=== PATIENT | male | born 1950 | race Caucasian/White ===

== ENCOUNTER 2023-03-31 08:59 | Outpatient (OUT) | payer MEDICARE, SELFPAY ==
--- NOTE | 2023-03-31 09:12 | MR_ITS ---
The [address] [address] Patient Name: GREGORY HENDERSON MRN: [id number] date: 1950 Sex: M Assigned Patient Location: MRI Current Patient Location: MRI Accession/Order Number: [id number] Exam Date: 03/31/2023 09:45 Report Date: 03/31/2023 13:16 At the request of: BRENDA WOOD Procedure: MR head/brain wo/w con EXAM: MR head/brain wo/w con HISTORY: Mild Cognitive Impairment G31.84 COMPARISON: None. TECHNIQUE: Multiplanar multisequence MR imaging of the brain was performed with and without intravenous contrast. FINDINGS: Calvarium/skull base: No focal marrow replacing lesion suggestive of neoplasm. Orbits: Grossly unremarkable. Paranasal sinuses: Imaged portions clear Brain: No restricted diffusion. No significant white matter disease. Mild parenchymal volume loss. No abnormal intracranial enhancement. No mass effect, hemorrhage, or hydrocephalus. Grossly normal flow-related signal in the major intracranial arteries and dural sinuses. MR/MR head/brain wo/w con IMPRESSION: 1. No acute intracranial process. 2. Mild diffuse parenchymal volume loss. Electronically authenticated by: JACOBO DE LA ROSA Date: 03/31/2023 13:16
[2023-03-31 09:29] LABS: Estimated GFR (African America >60 (>=60); Estimated GFR (Non-African Ame 54 (>=60)
== END 2023-03-31 09:00 | disposition home or self-care (01) ==
LOC: MRI 08:59
PROVIDERS: Visit Provider Psychiatry & Neurology Neurology
DX: G31.84 Mild cognitive impairment of uncertain or unknown etiology (principal)
CPT/HCPCS: 36415; 70553; 82565; 84520; A9575

== ENCOUNTER 2023-04-14 10:26 | Outpatient (OUT) | payer MEDICARE, SELFPAY ==
--- OUTSIDE RECORDS SUMMARY | 2023-04-14 10:34 | XMS_ITS | CCD ---
Author Name Unknown Address [address] [place] [address] Organization [facility] Care Team Providers Care Steward/Stewardess Wine Name Role Phone KayleyMalia mercado Unavailable Pattie Janna Unavailable Allergies Allergy Classification Reported Allergen(s) Allergy Type Date of Onset Reaction(s) Facility (3 sources) Substance with sulfonamide structure and antibacterial mechanism of action (substance) Drug allergy rash [facility] Other Medications Current Medications Medication Drug Class(es) Dates Sig (Normalized) Sig (Original) Aspir-81 (3 sources) Aspir-81 Active atorvastatin 80 mg oral tablet (3 sources) HMG-CoA Reductase Inhibitor take 1 tablet by mouth every twenty-four hours Atorvastatin Calcium 80 MG 1 tablet Orally Once a day Active azithromycin 250 mg oral tablet (1 source) Macrolide Antimicrobial Start: 06-07-2022 Azithromycin 250 MG 2 tablet on the first day, then 1 tablet daily for 4 days Orally Once a day for 5 day(s) Jun, Active benzonatate 200 mg oral capsule (3 sources) Non-narcotic Antitussive Start: 09-18-2022 take 1 capsule by mouth three times daily as needed for cough Benzonatate 200 MG 1 capsule Orally Three times a day prn cough for 10 days Sep, Active Start: 06-20-2022 take 1 capsule by [facility] every eight hours Benzonatate 200 MG 1 capsule Orally Three times a day prn cough Jun, Active Start: 06-07-2022 take 1 capsule by [facility] every eight hours Tessalon Perles 100 MG 1 capsule as needed Orally Three times a day for 10 day(s) Jun, Active clopidogrel 75 mg oral tablet (1 source) P2Y12 Platelet Inhibitor take 1 tablet by mouth every twenty-four hours Plavix 75 MG 1 tablet Orally Once a day Active doxycycline hyclate 100 mg oral capsule (1 source) Tetracycline-cl ass Drug Start : 06-20 take 1 capsule by mouth every twelve hours Doxycycline Hyclate 100 MG 1 capsule Orally Twice a day for 10 Jun, Active hydroCHLOROthiazide 25 mg oral tablet (3 sources) Thiazide Diuretic take 1 tablet by mouth every twenty-four hours hydroCHLOROthiazide 25 MG 1 tablet in the morning Orally Once a day Active metoprolol tartrate 50 mg oral tablet (3 sources) beta-Adrenergic Collette take 1 tablet by mouth every twelve hours Metoprolol Tartrate 50 MG 1 tablet with food Orally Twice a day Active NyQuil (1 source) Start : 06-07 NyQuil Jun, Active predniSONE 20 mg oral tablet (2 sources) Start : 06-07 take 1 tablet by mouth every twelve hours predniSONE 20 MG 1 tablet Orally 2 times a day for 5 day(s) Jun, Active Completed/Discontinued Medications Medication Drug Class(es) Dates Sig (Normalized) Sig (Original) albuterol 0.83 mg/ml inhalation solution (3 sources) beta2-Adrenergic Agonist Start: 06-20-2022 Albuterol Sulfate (2.5 MG/3ML) 0.083% 3 ml as needed Inhalation 4 times a day prn Jun, Not-Taking Start: 06-07-2022 take 2 puff(s) by in halation four times daily as needed Albuterol Sulfate HFA 108 (90 Base) MCG/ACT 2 puffs Inhalation 4 times a day prn Jun, Active Nebulizer - (2 sources) Start: 06-20-2022 Nebulizer - as directed Jun, Not-Taking Start: 06-20-2022 Nebulizer - as directed Jun, Active triamcinolone acetonide 40 mg/ml injectable suspension (2 sources) Corticosteroid Start: 06-20-2022 Kenalog-40 Jun, 40 mg Problems Active Problems Problem Classification Problem Date Documented Da te Episodic/Chronic Chronic obstructive pulmonary disease and bronchiectasis (2 sources) Bronchitis, not specified as acute or chronic Episodic Other upper respiratory infections (2 sources) Acute pharyngitis, unspecified; Translations: [Acute upper respiratory infection, unspecified] Episodic Past or Other Problems Problem Classification Problem Date Documented Da te Episodic/Chronic Unclassified (1 source) Acute cough R05.1 Viral infection (1 source) COVID-19 Results Test Name Value Interpretation Reference Range Facil ity COVID Quick Testingon 2022 Result Negative [facility] [employer] Other Quick Strepon 09-18-2022 S. pyogenes Org specific cx Ql (Throat) Negative [facility] [email or web address] Other Quick Strep [facility] [employer] Other COVID + FLU Quick Testingon 06-07-2022 SARS-CoV-2 (COVID-19) RNA LEANN+probe Ql (Unsp spec) Positive [facility] [email or web address] Other COVID + FLU Quick Testing Negative [facility] [email or web address] Other Vital Signs Date Time Vital Sign Value Performing Clinician Facility 09-18-2022 09:00-0400 Body height 162.56 cm Janna Blankenship Other [facility] Other 09-18-2022 09:00-0400 Body mass index (BMI) [Ratio] 37.07 kg/m2 Janna Blankenship Other [facility] Other 09-18-2022 09:00-0400 Body temperature 98.4 [degF] Janna Blankenship Other [facility] Other 09-18-2022 09:00-0400 Body weight 97.98 kg Janna Blankenship Other [facility] Other 09-18-2022 09:00-0400 Diastolic blood pressure 70 mm[Hg] Janna Blankenship Other [facility] Other 09-18-2022 09:00-0400 Respiratory rate 18 /min Janna Blankenship Other [facility] Other 09-18-2022 09:00-0400 SaO2% (BldA) [Mass fraction] 97 % Janna Blankenship Other [facility] Other 09-18-2022 09:00-0400 Systolic blood pressure 118 mm[Hg] Janna Blankenship Other [facility] Other 06-20-2022 10:10-0400 Body height 162.56 cm Malia Zaldivar Other [facility] Other 06-20-2022 10:10-0400 Body temperature 97.3 [degF] Malia Hensonmond Other [facility] Other 06-20-2022 10:10-0400 Respiratory rate 18 /min Malia Hensonmond Other [facility] Other 06-20-2022 10:10-0400 SaO2% (BldA) [Mass fraction] 97 % Malia Hensonmond Other [facility] Other 06-07-2022 09:00-0500 Body height 162.56 cm Malia Kayley Other [facility] Other 06-07-2022 09:00-0500 Body mass index (BMI) [Ratio] 38.45 kg/m2 Malia Kayley Other [facility] Other 06-07-2022 09:00-0500 Body temperature 102 [degF] Malia Kayley Other [facility] Other 06-07-2022 09:00-0500 Body weight 101.61 kg Malia Kayley Other [facility] Other 06-07-2022 09:00-0500 SaO2% (BldA) [Mass fraction] 96 % Malia Zaldivar Other [facility] Other Encounters Encounter Date Encounter Type Care Provider Facility Start: 09-18-2022 End: 09-18-2022 ambulatory Janna Blankenship Other [facility] Other Start: 09-18-2022 Office outpatient vi sit 15 minutes Janna Blankenship [facility] Start: 06-20-2022 End: 06-20-2022 ambulatory Malia Zaldivar Other [facility] Other Start: 06-20-2022 Office outpatient vi sit 15 minutes Maliashannan Zaldivar [facility] Start: 06-07-2022 End: 06-07-2022 ambulatory Malia Zaldivar Other [facility] Other Start: 06-07-2022 Office outpatient ne w 20 minutes Malia Kayley [facility] Payers Date Payer Category Payer Policy ID Medicare [id number] Social History Date Type Detail Facility Sex Assigned At [facility] Other Evaluation note 09-18-2022 Note Date & Type Note Facility 09-18-2022 Evaluation note Encounter Date Diagnosis Assessment Notes Sep, Sore throat (ICD-10 - J02.9) Sep, Viral URI with cough (ICD-10 - J06.9) Rapid strep and COVID test negative. Lungs clear, vitals remain stable. Discussed with patient exam and history is consistent with viral upper respiratory infection. Discussed viral nature of illness and typical duration of 7 to 14 days. Advised antibiotics unfortunately do not treat viral illnesses. May use symptomatic treatment such as plain mucinex, claritin, tessalon rx. May use Tylenol for any pain/fever. Follow-up with PCP if not improving over the next 7 days, sooner if significantly worsening symptoms. [facility] Other Evaluation note 06-20-2022 Note Date & Type Note Facility 06-20-2022 Evaluation note Encounter Date Diagnosis Assessment Notes Jun, Bronchitis (ICD-10 - J40) Acute bronchitis material was printed Drink plenty fluids, get plenty of rest. Continue home medications as prescribed. Take the doxycycline and prednisone as prescribed until gone. Use the albuterol nebulizer or your albuterol inhaler as prescribed as needed for cough or shortness of breath. Take the Tessalon Perles as needed for cough. Follow-up with your family physician or return to the clinic if no improvement in 5 to 7 days. Go to the ER for worsening symptoms or concerns [facility] Other Evaluation note 06-07-2022 Note Date & Type Note Facility 06-07-2022 Evaluation note Encounter Date Diagnosis Assessment Notes Jun, COVID-19 (ICD-10 - U07.1) Discharge Instructions for COVID-19 (Suspected or Confirmed ) material was printed Drink plenty fluids get plenty of rest. Take Tylenol or Motrin as needed for aches pains or fevers. Continue home medications as prescribed. You must quarantine for 5 days after the onset of your symptoms of COVID. Follow-up with your family physician if no improvement in 2 to 3 days. Jun, Bronchitis (ICD-10 - J40) Jun, Acute cough (ICD-10 - R05.1) [facility] Other History general Narrative - Reported 06-01-2022 Note Date & Type Note Facility 06-01-2022 History general N arrative - Reported Type Medical History hypertension Medical History high cholesterol Medical History COVID 06/2022 Surgical History right and left knee replacement Surgical History 2 stents Hospitalization History see surgical hx [facility] Other History general Narrative - Reported Note Date & Type Note Facility History general Narrative - Reported Type Medical History hypertension Medical History high cholesterol Surgical History right and left knee replacement Surgical History 2 stents Hospitalization History see surgical hx [facility] Other Additional Source Comments REASON FOR VISIT (unrecogniz ed section and content) cough, congestionCOUGH, JAVI ESTIONcold can't shake,sore throat FOR RECORDS PERTAINING TO PATIENTS WHO ARE OR HAVE BEEN ENROLLED IN A CHEMICAL DEPENDENCY/SUBSTANCEABUSE PROGRAM, SOME INFORMATION MAY BE OMITTED. This clinical summary was aggregated from multiple sources. Caution should be exercised in using it in the provision of clinical care. This summary normalizes information from multiple sources, and as a consequence, information in this document may materially change the coding, format and clinical context of patient data. In addition, data may be omitted in some cases. CLINICAL DECISIONS SHOULD BE BASED ON THE PRIMARY CLINICAL RECORDS. [facility]. provides no warranty or guarantee of the accuracy or completeness of information in this document.
== END 2023-04-14 10:27 | disposition home or self-care (01) ==
DX: G31.84 Mild cognitive impairment of uncertain or unknown etiology (principal)
CPT/HCPCS: 36415; 82607

== ENCOUNTER 2024-10-24 08:05 | Outpatient (OUT) | payer MEDICARE, SELFPAY ==
--- OUTSIDE RECORDS SUMMARY | 2024-10-24 08:17 | XMS_ITS | CCD ---
Author Organization [facility] Care Team Providers Care Sales Ledger Administrator Name Role Phone Kayley Malia Unavailable Pattie Janna Unavailable Baylee VILLEGAS, Muriel Primary Care Provider [phone] Cm Cho DO Unavailable MICHELLE DILLARD Attending Unavailable MICHELLE DILLARD Attending Unavailable FAHAD CHIN Attending Unavailable FAHAD CHIN Attending Unavailable BERNY LARSON Attending Unavailable Allergies Allergy Classification Reported Allergen(s) Allergy Type Date of Onset Reaction(s) Facility (6 sources) Substance with sulfonamide structure and antibacterial mechanism of action (substance) Drug allergy 10-18-2023 [facility] (1 source) Sulfacetamide; Translations: [SULFACETAMIDE] Drug Allergy 10-19-2022 [facility] Medications Current Medications Medication Drug Class(es) Dates Sig (Normalized) Sig (Original) Aspir-81 (3 sources) Aspir-81 Active aspirin 81 mg delayed release oral tablet (3 sources) Platelet Aggregation Inhibitor, Nonsteroidal Anti-inflammatory Drug take 1 tablet by mouth once daily aspirin 81 MG EC tablet Take 81 mg by mouth Daily Active atorvastatin 80 mg oral tablet (6 sources) HMG-CoA Reductase Inhibitor take 1 tablet by mouth once daily atorvastatin (Lipitor) 80 MG tablet Take 80 mg by mouth Daily Active azithromycin 250 mg oral tablet (1 [...] Active Start: 06-20-2022 take 1 capsule by [facility] every eight hours Benzonatate 200 MG 1 capsule Orally Three times a day prn cough Jun, Active Start: 06-07-2022 take 1 capsule by [facility] every eight hours Tessalon Perles 100 MG 1 capsule as needed Orally Three times a day for 10 day(s) Jun, Active clopidogrel 75 mg oral tablet (4 sources) P2Y12 Platelet Inhibitor clopidogrel (Plavix) 75 MG tablet Take by mouth Daily Active doxycycline hyclate 100 mg oral capsule (1 source) Tetracycline-cl ass Drug Start: 2022 take 1 capsule by mouth every twelve hours Doxycycline Hyclate 100 MG 1 capsule Orally Twice a day for 10 Jun, Active hydroCHLOROthiazide 25 mg oral tablet (6 sources) Thiazide Diuretic take 1 tablet by mouth once daily hydroCHLOROthiazide (HYDRODiuril) 25 MG tablet Take 25 mg by mouth Daily Active metoprolol tartrate 50 mg oral tablet (6 sources) beta-Adrenergic Collette take 1 tablet by mouth in the morning metoprolol tartrate (Lopressor) 50 MG tablet Take 50 mg by mouth in the morning and 50 mg before bedtime. Active Multiple Vitamins-Minerals (Mens 50+ Multivitamin) tablet (3 sources) take 1 tablet by mouth once daily Multiple Vitamins-Minerals (Mens 50+ Multivitamin) tablet Take 1 tablet by mouth Daily Active NyQuil (1 source) Start: 2022 NyQuil Jun, Active predniSONE 20 mg oral tablet (2 sources) Start: 2022 take 1 tablet by mouth every twelve [...] not specified as acute or chronic Episodic Coronary atherosclerosis and other heart disease (4 sources) Silent myocardial ischemia; Translations: [Atherosclerotic heart disease of ute coronary artery without angina pectoris] Onset: 10-19-2022 Chronic Diabetes mellitus with complications (2 sources) Hyperglycemia due to type 2 diabetes mellitus; Translations: [Type 2 diabetes mellitus with hyperglycemia] 05-02-2024 Chronic Disorders of lipid metabolism (4 sources) Mixed hyperlipidemia; Translations: [Hyperlipidemia, unspecified] Onset: 04-26-2024 Chronic Essential hypertension (2 sources) Essential (primary) hypertension; Translations: [Essential (primary) hypertension] Onset: 10-19-2022 Chronic Hypertension with complications and secondary hypertension (2 sources) Hypertensive heart disease without heart failure; Translations: [Hypertensive heart disease without heart failure] Onset: 10-10-2024 Chronic Other hereditary and degenerative nervous system conditions (5 sources) Impaired cognition; Translations: [Mild cognitive impairment, so stated] Onset: 10-18-2023 10-18-2023 Chronic Other upper respiratory infections (2 sources) Acute pharyngitis, unspecified; Translations: [Acute upper respiratory infection, unspecified] Episodic Residual codes; unclassified (2 sources) Obstructive sleep apnea syndrome; Translations: [Obstructive sleep apnea (adult) (pediatric)] 05-02-2024 Chronic Past or Other Problems Problem Classification Problem Date Documented Da te Episodic/Chronic Residual codes; unclassified (3 sources) Amnesia; Translations: [Other amnesia] Onset: 10-18-2023 10-18-2023 Episodic Unclassified (1 source) Acute cough R05.1 Viral infection (1 source) COVID-19 Results Test Name Value Interpretation Reference Range Facil ity Office Visiton 10-10-2024 Follow-up visit [id number] BrynnGregory Francis 1950 M Date Provider Department Center 10/10/2024 271-BERNY LARSON [facility] Family History Problem Relation Age of Onset Pancreatitis Mother Supraventricular tachycardia Mother Atrial fibrillation Mother Family Status - Relation Status Age at Mother Father Level of Service:29083 SD OFFICE/OUTPATIENT ESTABLISHED MOD MDM 30 MIN Normal [facility] Office Visiton 04-26-2024 Follow-up visit [id number] BrynnGregory Francis 1950 M Date Provider Department Center 04/26/2024 [id number] CHIN Family History Problem Relation Age of Onset Pancreatitis Mother Supraventricular tachycardia Mother Atrial fibrillation Mother Family Status - Relation Status Age at Mother Level of Service:75412 SD OFFICE/OUTPATIENT ESTABLISHED LOW MDM 20 MIN Normal [facility] Office Visiton 10-30-2023 Follow-up visit [id number] BrynnGregory Francis 1950 M Date Provider Department [facility] Family History Problem Relation Age of Onset Pancreatitis Mother Supraventricular tachycardia Mother Atrial fibrillation Mother Family Status - Relation Status Age at Mother Level of Service:97513 SD OFFICE/OUTPATIENT ESTABLISHED MOD MDM 30 MIN Normal [facility] COVID Quick Testingon 09-18 Result Negative [employer] Other Quick Strepon 09-18-2022 S. pyogenes Org specific cx Ql (Throat) Negative [employer] Other Quick Strep [employer] Other COVID + FLU Quick Testingon 06-07-2022 SARS-CoV-2 (COVID-19) RNA LEANN+probe Ql (Unsp spec) Positive [employer] Other COVID + FLU Quick Testing Negative [employer] Other Vital Signs Date Time Vital Sign Value Performing Clinician Facility 05-02-2024 15:25-0500 Body mass index (BMI) [Ratio] 39.48 kg/m2 Michelle Dillard MOLECULAR TECHNOLOGIST Work Phone: [facility] [employer] 05-02-2024 15:25-0500 Body weight 104.33 kg Michelle Dillard MOLECULAR TECHNOLOGIST Work Phone: [facility] [employer] 05-02-2024 15:25-0500 Diastolic blood pressure 72 mm[Hg] Michelle Dillard MOLECULAR TECHNOLOGIST Work Phone: [facility] [employer] 05-02-2024 15:25-0500 Heart rate 61 /min Michelle Dillard MOLECULAR TECHNOLOGIST Work Phone: [facility] [employer] 05-02-2024 15:25-0500 SaO2% (BldA) [Mass fraction] 98 % Michelle Dillard MOLECULAR TECHNOLOGIST Work Phone: [facility] [employer] 05-02-2024 15:25-0500 Systolic blood pressure 120 mm[Hg] Michelle Dillard MOLECULAR TECHNOLOGIST Work Phone: [facility] [employer] 09-18-2022 09:00-0400 Body height 162.56 cm Janna Blankenship Other [employer] Other 09-18-2022 09:00-0400 Body mass index (BMI) [Ratio] 37.07 kg/m2 Janna Blankenship Other [employer] Other 09-18-2022 09:00-0400 Body temperature 98.4 [degF] Janna Blankenship Other [employer] Other 09-18-2022 09:00-0400 Body weight 97.98 kg Janna Blankenship Other [employer] Other 09-18-2022 09:00-0400 Diastolic blood pressure 70 mm[Hg] Janna Blankenship Other [employer] Other 09-18-2022 09:00-0400 Respiratory rate 18 /min Janna Blankenship Other [employer] Other 09-18-2022 09:00-0400 SaO2% (BldA) [Mass fraction] 97 % Janna Blankenship Other [employer] Other 09-18-2022 09:00-0400 Systolic blood pressure 118 mm[Hg] Janna Blankenship Other [employer] Other 06-20-2022 10:10-0400 Body height 162.56 cm Malia Kayley Other [employer] Other 06-20-2022 10:10-0400 Body temperature 97.3 [degF] Malia Kayley Other [employer] Other 06-20-2022 10:10-0400 Respiratory rate 18 /min Malia Kayley Other [employer] Other 06-20-2022 10:10-0400 SaO2% (BldA) [Mass fraction] 97 % Malia Kayley Other [employer] Other 06-07-2022 09:00-0500 Body height 162.56 cm Malia Kayley Other [employer] Other 06-07-2022 09:00-0500 Body mass index (BMI) [Ratio] 38.45 kg/m2 Malia Kayley Other [employer] Other 06-07-2022 09:00-0500 Body temperature 102 [degF] Malia Kayley Other [employer] Other 06-07-2022 09:00-0500 Body weight 101.61 kg Malia Kayley Other [employer] Other 06-07-2022 09:00-0500 SaO2% (BldA) [Mass fraction] 96 % Malia Zaldivar Other [employer] Other Encounters Encounter Date Encounter Type Care Provider Facility Start: 10-10-2024 End: 10-10-2024 ambulatory [facility] Start: 05-02-2024 End: 05-02-2024 Office outpatient visit 15 minutes Michelle Dillard MOLECULAR TECHNOLOGIST Work Phone: [facility] Comment on above: Mild cognitive impai rment (Primary Dx); ALEXYS on CPAP; Type 2 diabetes mellitus with hyperglycemia, without long-term current use of insulin ([facility]) Start: 05-02-2024 End: 05-02-2024 ambulatory MICHELLE NISHANT Not Available Start: 05-02-2024 End: 05-02-2024 Bamboo flowsheet Michelle Dillard MOLECULAR TECHNOLOGIST Work Phone: [facility] Start: 05-02-2024 End: 05-02-2024 Bamboo flowsheet Michelle Dillard MOLECULAR TECHNOLOGIST Work Phone: [facility] Start: 04-26-2024 End: 04-26-2024 ambulatory [facility] Start: 10-30-2023 End: 10-30-2023 ambulatory [facility] Start: 10-23-2023 End: 10-23-2023 ambulatory MICHELLE DILLARD Not Available Start: 09-18-2022 End: 09-18-2022 ambulatory Janna Blankenship Other [employer] Other Start: 09-18-2022 Office outpatient visit 15 minutes Janna Blankenship [facility] Start: 06-20-2022 End: 06-20-2022 ambulatory Malia Zaldivar Other [employer] Other Start: 06-20-2022 Office outpatient visit 15 minutes Malia Zaldivar [facility] Start: 06-07-2022 End: 06-07-2022 ambulatory Malia Kayley Other [employer] Other Start: 06-07-2022 Office outpatient ne w 20 minutes Malia Zaldivar [facility] Plan of Treatment Date Care Activity Detail Author Start: 11-12-2024 End: 11-12-2024 Patient encounter procedure 11/12/2024 1:00 PM EDT Office Visit [facility] [address] [place] [address] Michelle Dillard NP [address] [place] [address] [facility] Start: 05-02-2024 End: 05-02-2024 Patient encounter procedure 05/02/2024 4:00 PM EST Office Visit [facility] [address] [place] [address] Michelle Dillard NP [address] [place] [address] Arrived [facility] Comment on above: Arrived Start: 2013 Pneumococcal Vaccine : 65+ Years (1 of 1 - PCV) Pneumococcal Vaccine: 65+ Years (1 of 1 - PCV) [facility] Start: 1950 Screening for malign ant neoplasm of colon [facility] Payers Date Payer Category Payer Medicare (Managed Care) [employer] [id number] 2022 Medicare [id number] 1950 Unknown [id number] 1950 Unknown [id number] Social History Date Type Detail Facility Start: 10-23-2023 Sex Assigned At N [employer] Other Start: 10-18-2023 Tobacco smoking stat [facility] Never smoked tobacco [facility] Start: 10-18-2023 Tobacco use and exposure Smokeless tobacco non-user [facility] Start: 10-23-2023 End: 05-02-2024 Alcoholic beverage intake Lifetime non-drinker (finding) [facility] Start: 10-23-2023 History of Social function [facility] Start: 1950 Sex assigned at Not on file N [facility] Progress note 10-10-2024 Note Date & Type Note Facility 10-10-2024 Note [facility] Cardiology Clinic Note Chief Complaint: Patient is here today for a 6 month follow up. Patient states he has been feeling good. Patient states he has been doing house project and as learned he has to slow down a bit, but feels really good. HPI: Gregory Swain is a 74 y.o. 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 This was abnormal. This led to a stress test that was abnormal. Cardiac catheterization revealed significant disease in the left anterior descending and PDA. He has had no significant symptoms since. He was recently diagnosed as diabetic and is trying to control his sugars with diet. Review of Systems Constitutional: Negative. Past Medical History He has a past medical history of BPH (benign prostatic hyperplasia), CAD (coronary artery disease), Elevated glucose, Hypertension, and Low serum HDL. Surgical History He has a past surgical history that includes Total knee arthroplasty (Bilateral); Foot surgery; Cardiac catheterization; and Coronary stent placement. Social History He reports that he has never smoked. He has never used smokeless tobacco. He reports that he does not currently use alcohol. He reports that he does not use drugs. Family History Family History[1] Allergies Sulfacetamide Medications Current Medications[2] Last Recorded Vitals BP 123/73 (BP Location: Left arm, Patient Position: Sitting) Pulse 60 Ht 1.626 m (5' 4 ) Wt 104 kg (229 lb) SpO2 95% BMI 39.31 kg/m??? Physical Examination: GENERAL: alert and oriented x3, well developed, in no acute distress. HEAD: atraumatic, normocephalic. EYES: CORINNA, EOMI. NECK: trachea midline, no JVD present, no carotid bruits present. CARDIAC: S1, S2 present. RRR. No murmur, rubs, or gallops. RESPIRATORY: CTAB, no increased effort of breathing, no rales, rhonchi, or wheezing. ABDOMEN: soft, nontender, nondistended. EXTREMITIES: no lower extremity edema, peripheral pulses are 2+ bilaterally. No rash/skin discoloration present. NEURO: strength/sensation equal and symmetric in bilateral upper and lower extremities. PSYCH: appropriate mood, affect, and judgement. Investigations: Lipid profile 05/07/2024 Total cholesterol 128, triglycerides 113, HDL is low at 36, LDL is 69 Assessment: Coronary artery disease, history of PCI of the LAD and left PDA Essential hypertension Dyslipidemia - low HDL Type II DM - diet controlled Plan: Continue optimal medical therapy for coronary artery disease including dual antiplatelet therapy, high intensity statin therapy, and a beta-collette Given recent diagnosis of diabetes mellitus, I recommended initiation of lisinopril; will start 5 mg a day and check a basic metabolic panel in a week. May consider addition of an SGLT2 inhibitor and/or a GLP-1 receptor agonist; will defer to his family physician. The patient is on hydrochlorothiazide and his blood pressure is well-controlled Given absence of symptoms prior to his PCI, as well as his diabetes, we will order a Lexiscan stress test to rule out occult ischemia May consider an echocardiogram depending on the results of his stress test Return to clinic in 6 months or sooner should problems arise Berny Larson MD, MPH, FACC, [facility], [facility] Interventional Cardiology Pager Email: [email or web address] Berny Larson MD, MPH, FACC, [facility], [facility] Interventional Cardiology Pager Email: [email or web address] [1] Family History Problem Relation Name Age of Onset Pancreatitis Mother Supraventricular tachycardia Mother Atrial fibrillation Mother [2] Current Outpatient Medications: aspirin 81 mg EC tablet, Take 1 tablet by mouth in the morning., Disp: , Rfl: atorvastatin (Lipitor) 80 mg tablet, Take 1 tablet by mouth at bedtime., Disp: , Rfl: clopidogrel (Plavix) 75 mg tablet, Take 1 tablet by mouth 1 (one) time each day., Disp: , Rfl: hydroCHLOROthiazide (HYDRODiuril) 25 mg tablet, Take 1 tablet by mouth 1 (one) time each day., Disp: , Rfl: metoprolol tartrate (Lopressor) 50 mg tablet, Take 1 tablet by mouth in the morning and at bedtime., Disp: , Rfl: [facility] History of Present illness Narrative 05-02-2024 Michelle Dillard NP - 05/02/2024 4:00 PM EST Note Date & Type Note Facility 05-02-2024 History of Presen t illness Narrative Images from the original note were not included. Chief Complaint Patient presents with Memory Loss Subjective Gregory Swain is a 73 y.o. male. History of Present Illness The patient presents today for a follow-up appointment for memory. He is accompanied by his , Fe Aguilar. He was most recently evaluated in our office on 10/23/2023. He has felt well since that time. The patient believes his cognitive function and memory have improved since the prior appointment. He lives at home with his . He remains independent with all ADLs and IADLs. He manages his medications and finances independently. He denies missing doses of medications or taking more than prescribed. He drives without difficulty or safety concerns. He has not gotten lost. 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 His appetite and mood are good. He denies feelings of depression or anxiety. He denies any changes in his sleep. He admits he has not been utilizing his CPAP every night due to his mask not fitting properly and previous electrical issues. The electrical issues are now resolved. 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 He denies agitation, irritability, hallucinations, wandering, or falls. He denies any new concerns. The patient denies family history of dementia. Review of Systems Constitutional: Negative for appetite change, chills, fatigue, fever and unexpected weight change. HENT: Negative for trouble swallowing and voice change. Eyes: Negative for visual change, double vision or loss of vision Respiratory: Negative for cough, shortness of breath and wheezing. Cardiovascular: Negative for chest pain and palpitations. Gastrointestinal: Negative for abdominal pain, blood in stool, nausea and vomiting. Musculoskeletal: Negative for arthralgias, gait problem and myalgias. Neurological: Negative for dizziness, tremors, seizures, syncope, facial asymmetry, speech difficulty, weakness, light-headedness, numbness and headaches. Positive for cognitive impairment Psychiatric/Behavioral: Negative for hallucinations and suicidal ideas. The patient is not nervous/anxious. Home Medication List aspirin 81 MG EC tablet atorvastatin 80 MG tablet; Commonly known as: Lipitor clopidogrel 75 MG tablet; Commonly known as: Plavix hydroCHLOROthiazide 25 MG tablet; Commonly known as: HYDRODiuril Mens 50+ Multivitamin tablet metoprolol tartrate 50 MG tablet; Commonly known as: Lopressor Past Medical History: Diagnosis Date DM type 2 (diabetes mellitus, type 2) (CMS/HCC) Hypertension ([facility]) ALEXYS (obstructive sleep apnea) Past Surgical History: Procedure Laterality Date KNEE ARTHROSCOPY W/ ARTHROTOMY TONSILLECTOMY TOTAL KNEE ARTHROPLASTY Family History Problem Relation Name Age of Onset Hypertension Mother Stroke Mother Cancer Father Social History Tobacco Use Smoking status: Never Smokeless tobacco: Never Substance Use Topics Alcohol use: Never Allergies: Sulfa antibiotics Vitals: 05/02/24 1525 BP: 120/72 Pulse: 61 SpO2: 98% Body mass index is 39.48 kg/m . weight: 230 lb Neurologic exam: Mental status and general appearance: Awake and alert with unlabored respirations. Oriented to person, place, and time. Recent and remote memory are intact. Speech is clear and fluent without aphasia. Speech is non-dysarthric. Attention and concentration are normal. Fund of knowledge is appropriate for level of education. Pleasant. Cranial nerves: CN II: Visual acuity is normal. Visual rueda full to confrontation. CN III, IV, : Pupils are equal, round, and reactive to light. Extraocular movements intact. No ptosis present. CN V: Facial sensation is normal. CN VII: Full and symmetric facial movement. CN VIII: Hearing is normal to finger rub bilaterally. CN IX and X: Palate elevates symmetrically. CN XI: Shoulder shrug is normal bilaterally. CN XII: Tongue is midline without atrophy or fasciculation. Motor: RUE strength deltoid , biceps , triceps , wrist extensors , wrist flexor , and coil cutter strength 5/5. LUE strength deltoid , biceps , triceps , wrist extensors , wrist flexor , and coil cutter strength 5/5. RLE strength iliopsoas, quadriceps, tibialis anterior, and plantar flexion strength 5/5. LLE strength iliopsoas, quadriceps, tibialis anterior, and plantar flexion strength 5/5. Tone and bulk are normal. Sensory: Sensation is intact to light touch throughout all four extremities. Sensation is intact to temperature in all extremities. Reflexes: RUE biceps reflex 2+ , brachioradialis reflex 2+. LUE biceps reflex 2+ , brachioradialis reflex 2+. RLE knee reflex 0. LLE knee reflex 0. Coordination: [id number] testing normal. Rapid alternating movements are normal. Gait: Normal. Review and summary of old records: MOCA score at [facility] on 05/02/24: with 4/5 recall. Vitamin B12 level on 04/14/23: 297. Labs on 03/11/23: GFR 54 (low). TSH on 09/20/22: 2.08. MRI of the brain w and w/o contrast at [facility] on 03/31/23: No acute intracranial process. Mild diffuse parenchymal volume loss. Garden cognitive assessment (MOCA) score at [facility] 03/08/23: . Assessment/Plan Diagnoses and all orders for this visit: Mild cognitive impairment (MCI) It is my impression that the patient has MCI versus normal cognition with mild forgetfulness. The patient initially presented reporting cognitive impairment with onset around early 2022. However, he believes his memory has actually improved over the past year, and his MOCA scores are consistent with this. This would argue against a neurodegenerative process and would suggest maybe previously high stress levels were contributory. TSH and vitamin B12 level were within normal limits. MRI of the brain on 03/31/2023 was generally unremarkable aside from mild diffuse parenchymal volume loss. MOCA score today is 28/30 (improved from prior score of 26/30 on 03/08/23). The patient remains independent with all ADLs and IADLs and denies any functional disability in his daily life. There are no focal neurological deficits on exam. PLAN: - Monitor clinically - We have discussed sleep hygiene, healthy diet, regular physical activity (as tolerated), and methods to help improve recall of information - I recommended the patient follow up closely with his primary care provider for management of blood pressure, cholesterol levels, and blood glucose. He states his most recent hemoglobin A1c was 5.7% - Could consider neuropsychological evaluation if the patient reports cognitive decline in the future or concerns arise Obstructive sleep apnea (ALEXYS) on CPAP History of ALEXYS reported by patient. PLAN: - I encouraged compliance with CPAP use while asleep - I encouraged the patient to follow up closely with outside provider for management of his ALEXYS. We discussed possible adverse health effects associated with untreated ALEXYS Type 2 diabetes mellitus with hyperglycemia, without long-term current use of insulin ([facility]) PLAN: - Follow up closely with primary care provider for adequate blood glucose management Diagnosis and treatment options discussed in detail. All questions answered. The patient verbalizes understanding and is agreeable to the plan. Discussion in layman's terms. Follow up in the office within 6 months; sooner if needed for new or worsening symptoms. Michelle Dillard NP [facility] Advanced Neurology documented in this encounter [facility] Progress note 04-26-2024 Note Date & Type Note Facility 04-26-2024 Note Cardiology Clinic No te HPI: Gregory Swain is a 73 y.o. male with a past medical history including hypertension, hyperlipidemia, and CAD status post PCI of LAD and L PDA. He was referred to Cardiology to establish care. Patient here for 6 mo follow up CAD, hypertension, and hyperlipidemia. He feels great. He adamantly denies any cardiac complaints or concerns. Patient adamantly denies any cardiac complaints or concerns. Patient denies any chest pain or shortness of breath. Patient denies any lower extremity edema, orthopnea, or proximal nocturnal dyspnea. No near-syncope or syncope. No dizziness or lightheadedness. Cardiology ROS: Review of Systems All other systems reviewed and are negative. Past Medical History He has a past medical history of BPH (benign prostatic hyperplasia), CAD (coronary artery disease), Elevated glucose, Hypertension, and Low serum HDL. Surgical History He has a past surgical history that includes Total knee arthroplasty (Bilateral); Foot surgery; Cardiac catheterization; and Coronary stent placement. Social History He reports that he has never smoked. He has never used smokeless tobacco. He reports that he does not currently use alcohol. He reports that he does not use drugs. Family History Family History Problem Relation Name Age of Onset Pancreatitis Mother Supraventricular tachycardia Mother Atrial fibrillation Mother Medications Current Outpatient Medications on File Prior to Visit Medication Sig Dispense Refill aspirin 81 mg EC tablet Take 1 tablet by mouth in the morning. atorvastatin (Lipitor) 80 mg tablet Take 1 tablet by mouth at bedtime. clopidogrel (Plavix) 75 mg tablet Take 1 tablet by mouth 1 (one) time each day. hydroCHLOROthiazide (HYDRODiuril) 25 mg tablet Take 1 tablet by mouth 1 (one) time each day. metoprolol tartrate (Lopressor) 50 mg tablet Take 1 tablet by mouth in the morning and at bedtime. No current facility-administered medications on file prior to visit. Allergies Sulfacetamide Physical Exam VITAL SIGNS: There were no vitals taken for this visit. Constitutional: Well developed, Well nourished, No acute distress, Non-toxic appearance. HENT: Normocephalic, Atraumatic, Bilateral external ears have normal appearance, Nose appears normal, nares are patent. Eyes: PERRLA, EOMI, Conjunctiva normal, No discharge. Neck: Normal range of motion, No tenderness, Supple, No stridor. No cervical lymphadenopathy noted. Cardiovascular: Normal heart rate, Normal rhythm, No murmurs, No rubs, No gallops. Thorax & Lungs: Normal breath sounds, No respiratory distress, No wheezing, No chest tenderness to palpation. Abdomen: Bowel sounds normal, Soft, Nontender, No masses, No pulsatile masses. Skin: Warm, Dry, No erythema, No rash. Back: No tenderness, No CVA tenderness. Extremities: Intact distal pulses, No edema, No tenderness, No cyanosis, No clubbing. Musculoskeletal: Grossly normal strength in extremities Neurologic: Alert & oriented x 3, no gross focal neurological deficits Psychiatric: Affect normal, Judgment normal, Mood normal. EKG results: No results found for this or any previous visit (from the past 4464 hour(s)). Echo results: No echocardiogram results found for the past 12 months Radiology: No image results found. Impression: -CAD status post PCI of LAD and L PDA: No angina or anginal equivalents -Hypertension -Hyperlipidemia Plan: -Continue aspirin, Plavix, atorvastatin, metoprolol for CAD. Discussed bleeding risk/benefit. Patient wishes to continue on Plavix at this time. He states that his cab station attendant told him he should be on lifelong DAPT. -Continue hydrochlorothiazide for hypertension. Blood pressures remain well controlled. Patient reminded to check daily blood pressure at home 2 hours after taking medication. Patient is instructed to maintain daily blood pressure log. Patient is to contact cardiology if blood pressures above discuss target range. Patient voices understanding. -Continue Atorvastatin 80 mg daily for HLD. Ordered lipid panel -Optimize medical management -Aggressive risk factor modification -Plan of care discussed with patient. All questions were answered. Patient voices understanding and is agreeable with current plan. -Patient was educated on red flag symptoms. Strict return precautions were provided. Patient verbalizes understanding -Follow-up in cardiology clinic in 6 months, or sooner as needed Fahad Chin MD Interventional Cardiology [facility] Progress note 10-30-2023 Note Date & Type Note Facility 10-30-2023 Note Cardiology Clinic No te Chief Complaint: follow up HPI: Gregory Swain is a 73 y.o. male with a past medical history including hypertension, hyperlipidemia, and CAD status post PCI of LAD and L PDA. He was referred to Cardiology to establish care. Patient here for 6 mo follow up CAD, hypertension, and hyperlipidemia. He denies chest pain, SOB, palpitations, and lightheadedness/syncope. He is currently remodeling his home and is able to do so without symptoms. Remodeling is involved heavy exertion, and again, patient adamantly denies any cardiac complaints or concerns with exertion. No chest pain. No shortness of breath. No lower extremity edema, orthopnea, paroxysmal nocturnal dyspnea. Cardiology ROS: GENERAL: Denies fever, chills, night sweats, weight loss. HEENT: Denies changes in vision, photophobia, changes in hearing, epistaxis, oral bleeding. CARDIOVASCULAR: Denies chest pain, exertional dyspnea, orthopnea/PND, lower extremity edema, palpitations, lightheadedness/dizziness. RESPIRATORY: Denies SOB, coughing, wheezing GI: Denies abdominal pain, nausea/vomiting, heartburn, melena/hematochezia. RENAL: Denies dysuria, hematuria, flank pain. MSK: Denies muscle weakness/pain, arthralgias/joint pain. NEUROLOGIC: Denies LOC, weakness, numbness, headaches. SKIN: Denies abnormal rashes or bleeding. PSYCH: Denies significant anxiety, depression, sleep disturbances. Past Medical History He has a past medical history of BPH (benign prostatic hyperplasia), CAD (coronary artery disease), Elevated glucose, Hypertension, and Low serum HDL. Surgical History He has a past surgical history that includes Total knee arthroplasty (Bilateral); Foot surgery; Cardiac catheterization; and Coronary stent placement. Social History He reports that he has never smoked. He has never used smokeless tobacco. He reports that he does not currently use alcohol. He reports that he does not use drugs. Family History Family History Problem Relation Name Age of Onset Pancreatitis Mother Supraventricular tachycardia Mother Atrial fibrillation Mother Medications Current Outpatient Medications on File Prior to Visit Medication Sig Dispense Refill aspirin 81 mg EC tablet Take 1 tablet by mouth in the morning. atorvastatin (Lipitor) 80 mg tablet Take 1 tablet by mouth at bedtime. clopidogrel (Plavix) 75 mg tablet Take 1 tablet by mouth 1 (one) time each day. hydroCHLOROthiazide (HYDRODiuril) 25 mg tablet Take 1 tablet by mouth 1 (one) time each day. metoprolol tartrate (Lopressor) 50 mg tablet Take 1 tablet by mouth in the morning and at bedtime. No current facility-administered medications on file prior to visit. Allergies Sulfacetamide Physical Exam VITAL SIGNS: BP 132/74 (BP Location: Right arm, Patient Position: Sitting) Pulse 57 Ht 1.626 m (5' 4 ) Wt 98.9 kg (218 lb) SpO2 95% BMI 37.42 kg/m??? Constitutional: Well developed, Well nourished, No acute distress, Non-toxic appearance. HENT: Normocephalic, Atraumatic, Bilateral external ears have normal appearance, Nose appears normal, nares are patent. Eyes: PERRLA, EOMI, Conjunctiva normal, No discharge. Neck: Normal range of motion, No tenderness, Supple, No stridor. No cervical lymphadenopathy noted. Cardiovascular: Normal heart rate, Normal rhythm, No murmurs, No rubs, No gallops. Thorax & Lungs: Normal breath sounds, No respiratory distress, No wheezing, No chest tenderness to palpation. Abdomen: Bowel sounds normal, Soft, Nontender, No masses, No pulsatile masses. Skin: Warm, Dry, No erythema, No rash. Back: No tenderness, No CVA tenderness. Extremities: Intact distal pulses, No edema, No tenderness, No cyanosis, No clubbing. Musculoskeletal: Grossly normal strength in extremities Neurologic: Alert & oriented x 3, no gross focal neurological deficits Psychiatric: Affect normal, Judgment normal, Mood normal. EKG results: No results found for this or any previous visit (from the past 4464 hour(s)). Echo results: No echocardiogram results found for the past 12 months Radiology: No image results found. Impression: -CAD status post PCI of LAD and L PDA: No angina or anginal equivalents -Hypertension -Hyperlipidemia Plan: -Continue aspirin, Plavix, atorvastatin, metoprolol for CAD. Discussed bleeding risk/benefit. Patient wishes to continue on Plavix at this time. He states that his cab station attendant told him he should be on lifelong DAPT. -Continue hydrochlorothiazide for hypertension. Blood pressures remain well controlled. Patient reminded to check daily blood pressure at home 2 hours after taking medication. Patient is instructed to maintain daily blood pressure log. Patient is to contact cardiology if blood pressures above discuss target range. Patient voices understanding. -Continue Atorvastatin 80 mg daily for HLD. Cholesterol at target -Optimize medical management -Aggressive risk factor mod (more content not included)... [facility] Evaluation note 09-18-2022 Note Date & Type [...] 7 days, sooner if significantly worsening symptoms. [employer] Other Evaluation note 06-20-2022 Note Date & [...] the ER for worsening symptoms or concerns [employer] Other Evaluation note 06-07-2022 Note Date & [...] J40) Jun, Acute cough (ICD-10 - R05.1) [employer] Other History general Narrative - Reported 06-01-2022 Note Date & Type Note Facility 06-01-2022 History general N arrative - Reported Type Medical History hypertension Medical History high cholesterol Medical History COVID 06/2022 Surgical History right and left knee replacement Surgical History 2 stents Hospitalization History see surgical hx [employer] Other Evaluation note Note Date & Type Note Facility Evaluation note Diagnosis Mild cognitive impairment- Primary Mild cognitive impairment, so stated ALEXYS on CPAP Type 2 diabetes mellitus with hyperglycemia, without long-term current use of insulin ([facility]) documented in this encounter [facility] History general Narrative - Reported Note Date & Type Note Facility History general Narrative - Reported Type Medical History hypertension Medical History high cholesterol Surgical History right and left knee replacement Surgical History 2 stents Hospitalization History see surgical hx [employer] Other Summary Purpose Family History No Family History Records FoundNo Family History Records Found Advance Directives No Advanced Directives Records FoundNo Advanced Directives Records Found Additional Source Comments REASON FOR VISIT (unrecogniz ed section and content) Reason Comments Memory Loss Care Teams (unrecognized sec tion and content) Sales Ledger Administrator Relationship Specialty Start Date End Date Muriel Beach MD [address] [place] [address] PCP - General Marine [employer] Dock Attendant 05/02/24 Cm Cho DO [address] [place] [id number] Referring Physician Neurology 05/02/24 Sales Ledger Administrator Relationship Specialty Start Date End Date Muriel Beach MD [address] [address] PCP - General Marine Fuel Dock Attendant 05/02/24 Cm Cho DO [address] [place] [id number] Referring Physician Neurology 05/02/24 (unrecognized sect ion and content) No Status Records FoundNo Status Records Found INFORMATION SOURCE (unrecogn ized section and content) DATE CREATED AUTHOR 05/04/2024 [facility] DATE CREATED AUTHOR 'S ORGANIZ ATION 10/14/2024 [facility] FOR RECORDS PERTAINING TO PATIENTS WHO ARE [...] BE BASED ON THE PRIMARY CLINICAL RECORDS. [employer] [facility]. provides no warranty or guarantee of the accuracy or completeness of information in this document.
[2024-10-24 10:17] LABS: Anion Gap 13.4; Blood Urea Nitrogen 16.0 mg/dL (7.0-18.0); Calcium 9.4 mg/dL (8.5-10.1); Carbon Dioxide 29.2 mmol/L (21.0-32.0); Chloride 104 mmol/L (98-107); Estimated GFR (African America >60 (>=60 mL/min/1.73m^2); Estimated GFR (Non-African Ame 51 (>=60 mL/min/1.73m^2); Glucose 135 mg/dL (74-106); Potassium 3.6 mmol/L (3.5-5.1); Sodium 143 mmol/L (136-145)
== END 2024-10-24 08:06 | disposition home or self-care (01) ==
LOC: LAB 08:09
PROVIDERS: Visit Provider Internal Medicine Interventional Cardiology
DX: I10 Essential (primary) hypertension (principal)
CPT/HCPCS: 36415; 80048

== ENCOUNTER 2024-10-28 07:45 | Outpatient (OUT) | payer MEDICARE, SELFPAY ==
--- OUTSIDE RECORDS SUMMARY | 2024-02-01 05:15 | XMS_ITS ---
Author Organization [facility] v[facility] Address [address] [place], [place] [id number] Care Team Providers Care House Carpenter Name Role Phone Baylee Muriel Primary Care Provider Kerry Romero [phone] REASON FOR VISIT DM Social History Sex Assigned At : Social History Observation Description Sex Assigned At Male Encounters Encounter Location Date Provider Diagnosis Main [address] [place] [id number] 02/01/2024 Kerry Romero Plan Of Treatment Next Appt Details Provider Name:Muriel Beach , 10/29/2024 09:00:00 AM, [address] [place], [id number], Provider Name:Muriel Beach , 11/06/2024 08:30:00 AM, [address] [place], [id number], Progress Notes * Stan SWAIN RDOB:1950 (74 yo M)Acc No.[id number]:02/01/2024 Medical Note Patient: Stan THOMAS Provider: Tito Romero MD :1950 A ge:73 Y S ex:Male Date:02/01/2024 Address:[address] [place], [place] [id number] Pcp:Muriel Beach Check In:09:02 AM EST Subjective: * Chief Complaints: * 1 . DM. * Medical History: Objective: * Vitals: Assessment: Plan: * Treatment: * Billing Information: * Visit Code: * Procedure Codes: * Electronic signature of Derian Romero MD on 10/28/2024 at 07:48 AM EDT Sign off status: Pending * Provider: Tito Romero MD Date: Generated for Ke saez/Saúl/Liz on: 0 10/28/2024 07:48 AM EDT
--- OUTSIDE RECORDS SUMMARY | 2024-10-02 09:00 | XMS_ITS | Continuity of Care Document ---
Author Organization [facility] Address [address] [place] [address] Phone Care Team Providers Care Care Process Manager Name Role Phone Josué Vela MD Unavailable Unavailable Allergies, Adverse Reactions, Alerts Substance Reaction Status Criticality No Known Allergies Active No Inform ation Medications Medication Instructions Dosage Effective Dates (start - stop) Status Comments PreserVision AREDS-2 250 mg-90 mg-40 mg-1 mg capsule take 1 capsule by oral route every day 1 capsule - Active pantoprazole 40 mg tablet,delayed release take 1 tablet by oral route every day 40 MG - Active Novolog Flexpen INTRADERM PEN INJCTR inject 40 unit by injection route every day - Active Vitamin B-12 1,000 mcg tablet take 1 capsule by oral route every day 1 capsule - Active aspirin 81 mg tablet,delayed release take 1 tablet by oral route every day 81 MG - Active lisinopril 20 mg tablet take 1 tablet by oral route every day 20 MG - Active simvastatin 40 mg tablet take 1 tablet by oral route every bedtime in the evening 40 MG - Active Vitamin D3 1,000 unit tablet take 1 capsule by oral route every week 1 capsule - Active lansoprazole 30 mg capsule,delayed release take 1 capsule by oral route every day before a meal 30 MG - Active Procedures Procedure Date Ophthal DX Imag Posterior Seg I And R Un i Or Bi Eye Exam Established Patient Comprehensi ve 1 Or More Visits Post Op Follow Up Visit Post Op Follow Up Visit Post Op Follow Up Visit Toric Alexandro Extracapsular Cataract Removal With IOl Manual Or Operations Manager/Coordinator Ophthalmic Biometry W Iol Calculation Pr of Comp Unilateral Toric Alexandro Extracapsular Cataract Remov al With IOl Manual Or Operations Manager/Coordinator Wo Endoscopic Post Op Follow Up Visit Post Op Follow Up Visit Toric Alexandro Extracapsular Cataract Remov al With IOl Manual Or Operations Manager/Coordinator Wo Endoscopic Toric Alexandro Extracapsular Cataract Removal With IOl Manual Or Operations Manager/Coordinator Surg Deposit Lens Surgery Deposit Surg Deposit Lens Ophthalmic Biometry W Iol Calculation Un ilateral Ophthalmic Biometry W Iol Calculation Un ilateral OFFICE/OUTPATIENT VISIT, NEW OFFICE/OUTPATIENT VISIT, EST OCT No Charge Uni Or Bi OFFICE/OUTPATIENT VISIT, EST DIL RETINA EXAM INTERP REV MACUL Plus FNDNGS TO DR MONTENEGRO 16 Dil macula fundus exam w doc Ophthal DX Image Post Retina I And R Uni Or Bi OFFICE/OUTPATIENT VISIT, EST DIL RETINA EXAM INTERP REV MACUL Plus FNDNGS TO DR MONTENEGRO 15 Dil macula fundus exam w doc Ophthal DX Image Post Retina I And R Uni Or Bi OFFICE/OUTPATIENT VISIT, EST OFFICE/OUTPATIENT VISIT, EST OFFICE/OUTPATIENT VISIT, EST OFFICE/OUTPATIENT VISIT, EST Advance Directives Directive Yes / No Effective Date File Name No Information Encounters Encounter Description Practice Location Reason(s) For Visit Diagnoses Date Provider Providers Copied on Encounter [facility], [address] [facility], [place], [address], [place] tel:[phone] [facility] [place] 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 [address] [place] [address], [place], [place], [id number], [place]. tel:[phone] Specialist : Josué Vela, [address] [place] [address], [place], [address] . tel:[phone] erring Provider: Josué Gonzalez, [address] [place] [address], [place], [address] . tel:[phone] [facility] Physician s, [address] [place], [address], [place] tel:[phone] [facility] S/p 1 Month P/O Phaco (chief complaint) Presence of intraocular lens 5 Dane Moses. [address] [place] [address], [id number], [place]. tel:[phone] Referring Provider: Josué Gonzalez, [address] [place] [address], [address] . tel:[phone] [facility] Physician s, [address] [place], [address], [place] tel:[phone] [place] [address] 1 week post op PHACO (chief complaint) Presence of intraocular lens 5 Dane Moses. [address] [place] [address], [id number], [place]. tel:[phone] Referring Provider: Josué Gonzalez, [address] [place] [address], [address] . tel:[phone] [facility] Physician s, [address] [place], [address], [place] tel:[phone] [facility] surgery follow up (chief complaint) Presence of intraocular lens 5 Dane Moses. [address] [place] [address], [id number], [place]. tel:[phone] Referring Provider: Josué Gonzalez, [address] [place] [address], [address] . tel:[phone] [facility] Centers, [address] [place], [address], [place] [phone] [facility] [place] Age-related nuclear cataract, right eyeRegular astigmatism, right eye 5 [facility] [place]. [facility] [place], [place], [id number], [place]. tel:[phone] Referring Provider: Josué Gonzalez, [address] [place] [address], [place], [address] . tel:[phone] [facility] Physician s, [address] [place], [address], [place] [phone] [facility] Surgery [facility] Age-related nuclear cataract, right eyeRegular astigmatism, right eye 5 Dane Moses. [address] [place] [address], [id number], [place]. tel:[phone] Referring Provider: Josué Gonzalez, [address] [place] [address], [address] . tel:[phone] [facility] Physician s, [address] [place], [address], [place] [phone] [facility] (chief complaint) Presence of intraocular lens 5 Dane Moses. [address] [place] [address], [id number], [place]. tel:[phone] Referring Provider: Josué Gonzalez, [address] [place] [address], [place], [address] . tel:[phone] [facility] Physician s, [address] [place], [address], [place] [phone] [facility] 1 day post op PHACO (chief complaint) Presence of intraocular lens 5 Dane Moses. [address] [place] [address], [place], [place], [id number], [place]. tel:[phone] Referring Provider: Josué Gonzalez, [address] [place] [address], [address] . tel:[phone] [facility], [address] [place], [address], [place] tel:[phone] [facility] [place] Age-related nuclear cataract of left eyeRegular astigmatism, left eye 5 Dane Moses. [address] [place] [address], [place], [place], [id number], [place]. tel:[phone] Referring Provider: Josué Gonzalez, [facility] [place], [address] . tel:[phone] [facility], [address] [place], [address], [place] tel:[phone] [facility] [place] Age-related nuclear cataract of left eyeRegular astigmatism, left eye 5 [facility] [place]. [address] [place], [place], [id number], [place]. tel:[phone] Referring Provider: Josué Gonzalez, [facility], [place], [address] . tel:[phone] [facility], [address] [place], [address], [place] tel:[phone] [facility] No Information 4 Dane Moses. [address] [place] [address], [place], [place], [id number], [place]. tel:[phone] Referring Provider: No Ref Doc No Referring Doc. [facility], [address] [place], [address], [place] tel:[phone] [facility] [place] No Information 4 Dane Moses. [address] [place] [address], [place], [place], [id number], [place]. tel:[phone] Referring Provider: No Ref Doc No Referring Doc. [facility], [address] [place], [address], [place] tel:[phone] [facility] [place] No Information 4 [facility] [place]. [address] [place], [place], [id number], [place]. tel:[phone] [facility], [address] [place], [address], [place] tel:[phone] [facility] [place] decreased vision (chief complaint) Cortical cataract 4 Dane Moses. [address] [place] [address], [place], [place], [id number], [place]. tel:[phone] Referring Provider: Josué Gonzalez, [address] [place] [address], [place], [address] . tel:[phone] [facility], [address] [place], [address], [place] tel:[phone] [facility] Cortical senile cataract, bilateral 4 Dane Moses. [address] [place] [address], [place], [id number], [place]. tel:[phone] Referring Provider: Josué Gonzalez, [address] [place] [address], [address] . tel:[phone] OFFICE/OUTPA TIENT VISIT, NEW [facility], [address] [place], [address], [place] [phone] [facility] NEWSPAPER MANAGING EDITOR CEE (chief complaint) Diabetes, type 2, without retinopathyDrusen of macula of both eyesNuclear sclerotic cataract, bilateral 4 Dane Moses. [address] [place] [address], [place], [place], [id number], [place]. tel:[phone] Referring Provider: Josué Gonzalez, [address] [place] [address], [place], [address] . tel:[phone] OFFICE/OUTPA TIENT VISIT, EST [facility], [address] [place], [address], [place] [phone] [facility] diabetic eye exam (chief complaint) Nuclear sclerotic cataract, bilateralCortical senile cataract, bilateralPVD (posterior vitreous detachment), bilateralType 2 diabetes mellitus without complication, unspecified senior care insulin use statusDrusen (degenerative) of retina, bilateral 7 Osher Gonzalez. [address], [place], [place], [id number], [place]. tel:[phone] Referring Provider: No Ref Doc No Referring Doc. OFFICE/OUTPA TIENT VISIT, EST [facility], [address] [employer], [place], [address], [place] [phone] [facility] [place] retinal exam (chief complaint) Nuclear sclerotic cataract, bilateralCortical cataractPVD (posterior vitreous detachment), bilateralDrusenCo rtical age-related cataract, bilateralDrusen (degenerative) of macula, bilateral 6 Osher Gonzalez. [address] [facility], [place], [place], [id number], [place]. tel:[phone] Specialist : Ja Anna, [address] [address], [place], [address]. tel:[phone] erring Provider: Juan Escobar, [address], [place], [address] . tel:[phone] OFFICE/OUTPA TIENT VISIT, EST [facility], [address], [place], [address], [place] [phone] [facility] [address] stable vision (chief complaint) No Information 5 Osher Gonzalez. [address] [facility] [employer] [place], [id number], [place]. tel:[phone] Referring Provider: Juan Escobar, [address] [employer] [facility], [place], [address] . tel:[phone] OFFICE/OUTPA TIENT VISIT, EST [facility], [address], [place], [address], [place] tel:[phone] [facility] [address] No Information 4 Freddy Bach. [facility], RETIRED, [place], [place], [id number]. tel:[phone] Referring Provider: uJan Escobar, [address], [place], [address] . tel:[phone] OFFICE/OUTPA TIENT VISIT, EST [facility], [address] [place], [place], [facility], tel:[phone] [facility] [address] No Information Mar-0 3 Freddy Isreal. [address] [place] [address], [facility], [place], [place], [id number]. tel:[phone] Referring Provider: Juan Escobar, [facility] [place], [address] . tel:[phone] OFFICE/OUTPA TIENT VISIT, EST [facility], [address] [place], [place], [facility], tel:[phone] [facility] [address] No Information 2 Freddy Bach. [address] [place] [address], [place], [place], [id number]. tel:[phone] Referring Provider: Juan Escobar, [address] [place], [address] . tel:[phone] OFFICE/OUTPA TIENT VISIT, EST [facility], [address] [place], [place], [facility], tel:[phone] [facility] [address] No Information Mar-0 1 Freddy Bach. [address] [place] [address], [place], [place], [id number]. tel:[phone] Referring Provider: Juan Escobar, [address] [place], [address] . tel:[phone] Family History Family Member Type Diagnosis Age At Onset Maternal grandmother Problem (finding) cataract Mother Problem (finding) No Family hist ory of No history of Cataracts Sister Problem (finding) Family history of Cance r, breast Paternal grandfather Problem (finding) Maternal history of diabetes mellitus Mother Problem (finding) No Family hist ory of No history of Glaucoma Mother Problem (finding) No Family hist ory of No history of Retinal disease Paternal grandfather Problem (finding) Heart disease Paternal Grandfather Problem (finding) Diabetes mellit us Mother Problem (finding) No Family hist ory of No history of Macular degeneration Father Problem (finding) Heart disease Paternal Grandfather Problem (finding) Arthritis Payers Payer name Insurance type Covered democrat ID Chanel barry(s) Medicare [place] [id number] [employer] [place] Medicare Supplement [place] [id number] Social History Type Description Quantity Date Captured Comments Alcohol Use Details Caffeine Use Details Tobacco Use Status Current non-smoker Smoking Status Never smoker Sex Male Chief Complaint And Reason For Visit From encounter dated '10/02/2024 13:00'. 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 Description: The 74 year old patient presents for evaluation of NEWSPAPER MANAGING EDITOR yag. Pt states vision is doing well with no problems. Pt denies any blurriness, cloudiness, discomfort, pressure or pain.A1C 6.5 Last checked in July BS 141 Last checked this morning Reason For Referral Reason For Referral No Information Plan Of Treatment Date Type Action Status Goal Tobacco cessation counseling completed Referral Ordered: Amador Diaz -Family Medicine (related to Type 2 diabetes mellitus without complication, unspecified technician terminal and repeater insulin use status) ordered Referral Referred To: Amador Diaz [address] [place], [place] [id number] Ordered: Referrals: Family Medicine. Amador Diaz. Assume care ordered Appointment Stan Jarrett BOOKED History Of Present Illness Encounter Date Complaint History Of Prese nt Illness NEWSPAPER MANAGING EDITOR yag The 74 year old patient presents for evaluation of NEWSPAPER MANAGING EDITOR yag. Pt states vision is doing well with no problems. Pt denies any blurriness, cloudiness, discomfort, pressure or pain.A1C 6.5 Last checked in July BS 141 Last checked this morning S/p 1 Month P/O Phaco The 73 yea r old patient presents for evaluation of S/p 1 Month P/O Phaco in the right eye and left eye. Patient states his vision has been good and clear since surgeries on 04/09/2024 and 04/24/2024. Patient is satisfied with he results of his surgery. Patient denies any black shadow/curtain veil and eye pain. Patient has ran out of his combination drop (Pred/brom), but has bought another just in case. Patient would like to know if he still has to continue using the eye drops. Patient has no complaints in regards to his eyes or vision. Eye meds: Pred/Brom - Patient ran out of drop.BS: 160 11:21 am.A1C: 6.5 Last taken in March.Uses insulin. 1 week post op PHACO The 73 year old patient presents for evaluation of 1 week post op PHACO in the right eye. Pt states VA is better and crystal clear. Pt denies any flashes/floaters, irritation or pain. Pt has no complaints at this time. Pt is taking drops as directed. surgery follow up The 73 year ol d patient presents for evaluation of surgery follow up in the right eye. I'm doing really good this morning! My vision is really good. I'm not having any pain or discomfort. I am confused on my drops; I have the one with all three drops in one bottle then a bunch of other ones? I'm not sure what I need to do or why those were sent in like that? PHACO The 73 year old patient presents for evaluation of PHACO in the left eye. Pt states his vision his doing great and doesn't need he's glasses. Pt denies pain/aching, flashes/floaters, black spots, curtains/veils or glares/halos. Pt did get his drops and is following them correctly. GTTS: PRED/MOXI/BROM -- COMBO 0/4BRIM 0/3 1 day post op PHACO The 73 year old patient presents for evaluation of 1 day post op PHACO in the left eye. Pt states Va has improved in OS. Pt reports irritation in OS yesterday but has gone away today. Pt denies any pain or flashes/floaters. Pt is taking drops as directed. decreased vision The 73 year old patient presents for evaluation of decreased vision in the right and left eyes. Pt states he gets cloudy vision while reading up close. Needs more light than usual. Distance vision has not been affected. Mentions he is having trouble reading small print such as newspapers in OU. mentions he is having trouble reading traffic signs and street signs. Doing fine handwork in OU. Writing checks and completing forms OU. Watching TV in OU. Denies floaters, flashes, pain, irration, double vision, and redness. No questions or concerns for ANM today. BS: 106 was taken at 8:15 AMA1c: 6.8 was last checked drops: none NEWSPAPER MANAGING EDITOR CEE The 73 year old patient presents for evaluation of NEWSPAPER MANAGING EDITOR CEE in the right and left eyes. Pt states hes here to get a retinal eval and cat eval. Pt states VA is getting a little blurrier, mostly NVA. Pt states that VA will get cloudy when he reads fine print. Pt states that he was to use a light to see small things. Pt states his vision at night is okay. Pt reports that things seem dimmer. Pt denies any flashes/floaters, pain/headaches, irritation, glare/halos, double vision or distortion. Pt does not take any eye drops. Pt has glasses and CL but only wears when he plays sports.BS 97 this [id number] 6.8 taken in December diabetic eye exam The 66 year ol d male presents for evaluation of diabetic eye exam in the right and left eyes. PVD both eyes. 1 yr since last exam. Pt states his vision is the same in both eyes since his last exam. Patient denies floaters, flashes or eye pain. retinal exam The 65 year old male presents for evaluation of retinal exam in the right and left eyes. near vision decearse in both eyes. noticed age related problems more light to see same things, cant see close up as well. -both eyes. Denies flashes, floaters or eye pain in either eye. Diabetes Mellitus type 1-insulin dependent. No HTN stable vision The 64 year old male presents for evaluation of stable vision in the right and left eyes. It started about 1 year(s) ago. Patient denies eye pain, flashes and floaters ou. Pt happy with current vision ou. Functional Status Date Functional Assessmen t No Information Instructions Date Instruction Additional Infor gwyn Impression/Plan Impression/Plan Related to Prese nce of intraocular lens Impression/Plan Related to Prese nce of intraocular lens Impression/Plan Related to Prese nce of intraocular lens Impression/Plan Related to Prese nce of intraocular lens Impression/Plan Related to Prese nce of intraocular lens Impression/Plan Impression/Plan - Min progression in cataracts.Since Dr. Briggs doing annual DFE as well and since he has no retinopathy, probably fine to just see Dr. Briggs from here. Patient prefers for me to check retina periodically so I'll see again in 2 years. Discussed natural history of diabetic retinopathy, as well as the importance of regular follow up dilated eye exams. Discussed that maintaining good diabetic (HgbA1c < 7), blood pressure (SBP < 135mmHg), and cholesterol control , regular exercise, and avoiding smoking are critical to prevent visual compromise. Related to See impression details - 2 years dfe/oct OU Related to See impression details - Stable retina exam . Min progression in cataracts. Discussed natural history of diabetic retinopathy, as well as the importance of regular follow up dilated eye exams. Discussed that maintaining good diabetic (HgbA1c < 7), blood pressure (SBP < 135mmHg), and cholesterol control , regular exercise, and avoiding smoking are critical to prevent visual compromise. Related to See impression details - 1 year dfe/oct OU Related to S ee impression details - Discussed natural history of patient's ocular disorders, and instructed to call/return urgently if worsening signs/symptoms of disease. Discussed natural history of diabetic retinopathy, as well as the importance of regular follow up dilated eye exams. Discussed that maintaining good diabetic (HgbA1c < 7), blood pressure (SBP < 135mmHg), and cholesterol control , regular exercise, and avoiding smoking are critical to prevent visual compromise. Symptoms of retinal tears, retinal detachment, vitreous detachment, and vitreous hemorrhage were discussed with the patient. The patient was instructed to call urgently if any of these symptoms are observed. Related to See impression details - 1 year dfe/oct OU Related to S ee impression details Assessments Type Assessment Date assessment Secondary cataract, bilateral Ju l-02-2025 assessment Vitreous detachment, bilateral J assessment Diabetes, type 2, without retino jacey assessment Meibomian gland dysfnct right ey e, upper and lower eyelids assessment Meibomian gland dysfnct left eye , upper and lower eyelids assessment Dry eye syndrome of bilateral la crimal glands Patient Care Teams Name Effective Dates (start - stop) Status Members No Information
--- OUTSIDE RECORDS SUMMARY | 2024-10-28 07:47 | XMS_ITS | Encounter Summary ---
Author Organization [facility] Address [address] [place] [address] Care Team Providers Care Manager Product Marketing Name Role Phone Radha Shetty Primary Care Provider [phone] Fahad Chin MD Unavailable [phone] Encounter Details Date Type Department Care Team (Late st Contact Info) Description 10/24/2024 Orders Only [facility] [address] [place] [address] ProviderLorena MD [address] [place] [address] Social History Tobacco Use Types Packs/Day Years Used Date Smoking Tobacco: Never Smokeless Tobacco: Never Alcohol Use Standard Drinks/Week Comments Not Currently 0 (1 standard drink = 0.6 oz pur e alcohol) [place] Safety & Environment Answer Date Rec orded Fear of Current or Ex-Partner Not on file Emotionally Abused Not on file 05/26/2023 Physically Abused Not on file 05/26/2023 Sexually Abused Not on file 05/26/2023 Physically or Sexually Abused Not on file Sex and Gender Information Value Date Recorded Sex Assigned at Not on file Legal Sex Male 9:49 AM EDT Gender Identity Not on file Sexual Orientation Not on file documented as of this encounter Plan of Treatment Not on file documented as of this encounter Procedures Procedure Name Priority Date/Time Associated Diagnosis Comments BASIC METABOLIC PANEL Routine 10/24/2024 1:19 PM EDT documented in this encounter Results * Basic metabolic panel (10/24/2024 1:19 PM EDT) Blood Venous blood specimen / Unknown us Historical Provider LAB BLOOD ORDERABLES Susan l Result documented in this encounter Visit Diagnoses Not on filedocumented in this encounter Care Teams Manager Product Marketing Relationship Specialty Start Date End Date Radha Shetty [address] PCP - General 10/19/22 Fahad Chin MD [address] [place] [address] Cardiology 10/19/22 documented as of this encounter
--- OUTSIDE RECORDS SUMMARY | 2024-10-28 07:48 | XMS_ITS | Patient Health Record ---
Author Organization [facility] Address [address] [place] [address] Care Team Providers Care Enterostomal Nurse Name Role Phone Osei Renee Primary Care Provider Amber Persaud MD, Veronica Unavailable Reason For Referral No Information Plan Of Treatment No Information Insurance Providers Payer Name Payer Address Payer Phone Subscriber Number Group Number Insured Name Patient Relationship to Insured Coverage Start Date Coverage End Date [employer] [address] [address] [place] [address] [phone] [id number] GREGORY HENDERSON Self - patient is the insured
--- OUTSIDE RECORDS SUMMARY | 2024-10-28 07:48 | XMS_ITS | Patient Health Record ---
Author Organization [facility] Address [address] [place], [place] [id number] Care Team Providers Care Dining Car Conductor Name Role Phone Muriel Beach Primary Care Provider Preston Trejo Unavailable [phone] Ly Banuelos Unavailable [phone] Autumn Emanuel Unavailable Hemal Romeroa Unavailable [phone] Allergies Allergen (clinical drug ingredient) Drug/Non Drug Allergy documented on EMR Reaction Allergy Type Onset Date Status sulfacetamide Sulfacetamide rash Drug Allergy Active Results Component Value Reference Range Notes Basic Metabolic Panel Reviewed date:10/25/2024 11:43:29 PM Interpretation: Performing Lab: Notes/Report: [facility] , Sodium 143 136-145 mmol/L Potassium 3.6 3.5-5.1 mmol/L Chloride 104 98-107 mmol/L Carbon Dioxide 29.2 21.0-32.0 mmol/L Anion Gap 13.4 Glucose 135 74-106 mg/dL Blood Urea Nitrogen 16.0 7.0-18.0 mg/dL Creatinine 1.35 0.70-1.30 mg/dL Estimated GFR ( Stefanie >60 >=60 mL/min/1.73m 2 Estimated GFR (Non- Yaz 51 >=60 mL/min/1.73m 2 BUN Creatinine Ratio 11.9 Calcium 9.4 8.5-10.1 mg/dL Performing Lab: see note ML - [facility] LB POCT A1C Reviewed date:08/06/2024 08:41:10 AM Interpretation: Performing Lab: Notes/Report: COMPREHENSIVE METABOLIC PANE L WITH GFR Reviewed date:01/29/2024 08:33:46 AM Interpretation: Performing Lab: Notes/Report: GLUCOSE 99 70-100 mg/dL BUN 16 8-23 mg/dL CALCIUM 9.3 8.6-10.5 mg/dL CREATININE, BLOOD 1.38 0.67-1.30 mg/dL eGFR (2020 CKD-EPI) 53 >59 mL/min/1.73m2 The NKF-ASN recommends use of cystatin C to confirm eGFR in adults at risk for CKD. Cystatin C can be used alone or paired with repeat creatinine measurement to increase the accuracy of estimated GFR. SODIUM 142 135-148 mmol/L POTASSIUM 3.9 3.5-5.4 mmol/L CHLORIDE 104 96-107 mmol/L CO2 26 18-32 mmol/L ANION GAP 12 7-16 mmol/L T. BILIRUBIN 0.7 <1.3 mg/dL ALK PHOS 93 39-118 U/L AST-SGOT 26 9-50 U/L ALT-SGPT 17 5-41 U/L T. PROTEIN 6.3 6.0-8.3 g/dL ALBUMIN 4.2 3.5-5.2 g/dL HEMOGLOBIN A1C Reviewed date:01/29/2024 08:34:00 AM Interpretation: Performing Lab: Notes/Report: HEMOGLOBIN A1C 6.1 <5.7 % Prediabetes: 5.7% to 6.4% Diabetes: >6.4% Glycemic control for adults with diabetes: <7.0% Use with caution in patients with abnormal hemoglobin variants as the half-life of red blood cells and in vivo glycation rates are affected. UNLESS OTHERWISE INDICATED, ALL TESTING PERFORMED AT: [employer] [address] [place] [address] LEAD MASON TENDER: ROMELIA MARTE M.D. CLIA NUMBER [id number] CAP ACCREDITATION AUID [id number] Changes in testing location may be associated with reference range changes for a number of analytes. Please review reference intervals carefully. Reason For Referral No Information Medications Medication SIG (Take, Route, Frequency, Duration) Notes Start Date End Date Status hydroCHLOROthiazide 25 MG TAKE 1 TABLET EVERY MORNING for 90 Active Metoprolol Tartrate 50 MG TAKE 1 TABLET TWICE DAILY WITH FOOD for 90 Active Lancets - 1 lancet once a day for 90 days *whatever brand is covered by insurance TRUEPLUS 33G LANCET 11/09/2022 Active Clopidogrel Bisulfate 75 MG 1 tablet Oral Once a day for 90 days Active Blood Glucose Test Strip - 1 test strip once daily In Vitro for 90 days *whatever brand is covered by insurance 11/09/2022 Active Aspirin Adult Low Dose 81 MG 1 tablet Orally Once a day Active Blood Glucose Monitor - 1 meter check daily *whatever brand is covered by insurance 11/09/2022 Active Multivitamin - 1 tablet Orally Once a day Active Atorvastatin Calcium 80 MG 1 tablet Oral Once a day for 90 days Active Social History Tobacco Use: Social History Observation Description Date Details (start date - stop date) Never Smoker NA - NA Sex Assigned At : Social History Observation Description Sex Assigned At Male Household Question Answer Notes Number of adults in household: 2 Number of children in household: 0 Tobacco Use/Smoking Question Answer Notes Tobacco use: nonsmoker patient enter ed data CAGE-AID Questionnaire (2018 Edition) Question Answer Notes Have you ever felt that you ought to cut down on your drinking or drug use? No patient entered data Have people annoyed you by c riticizing your drinking or drug use? No patient entered data Have you ever felt bad or gu ilty about your drinking or drug use? No patient entered data Have you ever had a drink or used drugs first thing in the morning to steady your nerves or to get rid of a hangover? No patient entered data PRAPARE Question Answer Notes Date Completed/Updated: 08/05/2024 callie nt entered data What is your current housing situation? I have housing patient entered data Are you worried about losing your housing? No patient entered data What is the highest level of school that you have finished? More than high school patient entered data What is your current work situation? Otherwise unemployed but not seeking work (ex. 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 Check all that apply I do not have problems meeting my needs Has lack of transportation k ept you from medical appointments, meetings, work or from getting things needed for daily living? No patient entered harriet a How often do you see or talk to people that you care about and feel close to? (For example: talking to friends on the phone, visiting friends or family, going to islam or club meetings) More than 5 times a week patient entered data How stressed are you? Stress is when someone feels tense, nervous, anxious, or can't sleep at night because their mind is troubled Not at all patient entered data In the past year have you sp ent more than 2 nights in a row in a [facility], [facility], care home center, or juvenile correctional facility? No patient entered data Are you a refugee? No patient en tered data What country are you from? [place] bernie carrasquillo entered data Do you feel physically and emotionally safe where you currently live? Yes patient entered data In the past year, have you b een afraid of your partner or ex-partner? 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) Low HDL (under 40) (E78.6) Active confirmed Problem 55996887 Primary hyperten gunner (I10) Active confirmed Problem 253112953 Stage 3a chronic kidney disease (N18.31) Active confirmed Problem 25473010 Coronary artery disease involving [place] heart without angina pectoris, unspecified vessel or lesion type (I25.10) Active confirmed Vital Signs Heart Rate 63 /min 08/06/2024 Max Gonzalez 08/06/2024 08:34:58 AM EDT > Temperature 97.7 degrees Fahrenheit 08/06/2024 Milind Zuleta 08/06/2024 08:34:58 AM EDT > Respiratory Rate 18 /min 08/06/2024 Gonzalez, Milind 08/06/2024 08:34:58 AM EDT > Blood pressure diastolic 79 mm Hg 08/06/2024 Marti dovinos, Milind 08/06/2024 08:34:58 AM EDT > Oximetry 98 % 08/06/2024 Gonzalez, Ser vando 08/06/2024 08:34:58 AM EDT > Height-cm 162.56 cm 08/06/2024 Gonzalez, Ser vando 08/06/2024 08:34:58 AM EDT > Weight-kg 114.31 kg 08/06/2024 Gonzalez, Ser vando 08/06/2024 08:34:58 AM EDT > Height 64 in 08/06/2024 Gonzalez, Ser vando 08/06/2024 08:34:58 AM EDT > Blood pressure systolic 138 mm Hg 08/06/2024 Valrylie mckay, Milind 08/06/2024 08:34:58 AM EDT > Weight 252 lbs 08/06/2024 Gonzalez, Ser vando 08/06/2024 08:34:58 AM EDT > BMI 43.25 kg/m2 08/06/2024 Gonzalez, Ser vando 08/06/2024 08:34:58 AM EDT > Encounters Encounter Location Date Provider Diagnosis Main [address] [place], [place] [id number] 02/01/2024 [facility] Type 2 diabetes kings itus without complication, without long-term current use of insulin E11.9 ; Primary hypertension I10 ; Impacted cerumen, right ear H61.21 ; Body mass index [BMI] 36.0-36.9, adult Z68.36 and Morbid (severe) obesity due to excess calories E66.01 Main [address] [place], [place] [id number] 08/06/2024 [facility] Type 2 diabetes kings itus without complication, without long-term current use of insulin E11.9 ; Primary hypertension I10 ; Hypertriglyceridemia E78.1 ; Stage 3a chronic kidney disease N18.31 ; Severe obesity (BMI >= 40) E66.01 and BMI 40.0-44.9, adult Z68.41 [address] [place], [place] [id number] 12/05/2023 Autumn Emanuel [address] [place] [id number] 12/05/2023 Autumn Emanuel [address] [place] [place] [id number] 12/15/2023 Autumn Emanuel Type 2 diabetes mellitus without complication, without long-term current use of insulin E11.9 [facility] [address] [place] [address] 01/15/2024 Ly Lakisha Main [address] [place], [place] [id number] [facility] Type 2 diabetes kings itus without complication, without long-term current use of insulin E11.9 [address] [place], [place] [id number] 05/[facility] Type 2 diabetes kings itus without complication, without long-term current use of insulin E11.9 [facility] [address] [place] [id number] 05/13/2024 [facility] [address] [place] [id number] 05/13/20[facility] Type 2 diabetes kings itus without complication, without long-term current use of insulin E11.9 Main [address] [place], [place] [id number] 10/[facility] Encounter Date Diagnosis (ICD Code) Assessment Notes Treatment Notes Treatment Clinical Notes Section Notes 12/15/2023 Type 2 diabetes mellitus without complication, without long-term current use of insulin (ICD-10 - E11.9) 02/01/2024 Type 2 diabetes mellitus without complication, without long-term current use of insulin (ICD-10 - E11.9) DM stable. Will continue current medications. Encouraged healthy diet and exercise. F/u 6 months & PRN 02/01/2024 Primary hypertension (ICD-10 - I10) HTN stable. Will continue current medications. Encouraged healthy diet and exercise. F/u 6 months & PRN 03/06/2024 Type 2 diabetes mellitus without complication, without long-term current use of insulin (ICD-10 - E11.9) 05/13/2024 Type 2 diabetes mellitus without complication, without long-term current use of insulin (ICD-10 - E11.9) 05/13/2024 Type 2 diabetes mellitus without complication, without long-term current use of insulin (ICD-10 - E11.9) 08/06/2024 Type 2 diabetes mellitus without complication, without long-term current use of insulin (ICD-10 - E11.9) A1C slightly increased Pt encouraged to work on healthy diet and exercise at this time. Pt declines medications at this time, will consider at next appt if A1C raises above 7 F/U 3 months or PRN 08/06/2024 Primary hypertension (ICD-10 - I10) HTN stable. Will continue current medications. Encouraged healthy diet and exercise. F/u 3 months & PRN Pt to complete labs prior to next appt from last appt. 02/01/2024 Impacted cerumen, ri ght ear (ICD-10 - H61.21) Pt instructed to use OTC Debrox to loosen cerumen impacted for 3-5 days and see if it makes an improvement. Pt to schedule an ear irrigation appt if it does not clear. F/U PRN 08/06/2024 Hypertriglyceridemia (ICD-10 - E78.1) Encouraging healthy diet and exercise Pt to complete labs prior to next appt F/U 3 months or PRN 02/01/2024 Body mass index [BMI ] 36.0-36.9, adult (ICD-10 - Z68.36) 08/06/2024 Stage 3a chronic kid cong disease (ICD-10 - N18.31) Pt does not follow w/ Nephrology Will complete labs ordered from last appt prior to next appt. F/U 3 months or PRN 08/06/2024 Severe obesity (BMI >= 40) (ICD-10 - E66.01) 02/01/2024 Morbid (severe) obes ity due to excess calories (ICD-10 - E66.01) 08/06/2024 BMI 40.0-44.9, adult (ICD-10 - Z68.41) Plan Of Treatment Next Appt Details Provider Name:Muriel Beach , 10/29/2024 09:00:00 AM, [address] [place], [id number], Provider Name:Muriel Beach , 11/06/2024 08:30:00 AM, [address], [place], [place], [id number], Insurance Providers Payer Name Payer Address Payer Phone Subscriber Number Group Number Insured Name Patient Relationship to Insured Coverage Start Date Coverage End Date [employer] [address] [address] [place] [phone] [id number] Stan Swain Self - patient is the insured 3 Medical (General) History Medical History History ICD Code Hypertension Coronary Artery Disease Benign Prostatic Hypertrophy Low HDL Surgical History Surgery Date(Month/Year) right knee replacement 2017 left knee replacement 2020 left foot surgery, pins 2008 pylocyst 1970 2 heart cath/stent 2016 Hospitalization History Reason Date(Month/Year) [facility] Palsy 07/2021
--- OUTSIDE RECORDS SUMMARY | 2024-10-28 07:48 | XMS_ITS | CCD ---
Author Organization [facility] Care Team Providers Care Fast Food Cook Name Role Phone KayleyCesia mercadoela Unavailable Pattie Janna Unavailable Baylee VILLEGAS, Muriel Primary Care Provider [phone] Cm Cho DO Unavailable MICHELLE DILLARD Attending Unavailable MICHELLE DILLARD Attending Unavailable FAHAD CHIN Attending Unavailable BERNY LARSON Attending Unavailable FAHAD CHIN Attending Unavailable Allergies Allergy Classification Reported Allergen(s) Allergy Type Date of Onset Reaction(s) Facility (6 sources) Substance with sulfonamide structure and antibacterial mechanism of action (substance) Drug allergy 10-18-2023 [facility] (1 source) Sulfacetamide; Translations: [SULFACETAMIDE] Drug Allergy 10-19-2022 [facility] Repository Medications Current Medications Medication Drug Class(es) [...] Active Start: 06-20-2022 take 1 capsule by [facility] every eight hours Benzonatate 200 MG 1 capsule Orally Three times a day prn cough Jun, Active Start: 06-07-2022 take 1 capsule by [facility] every eight hours Tessalon Perles 100 [...] myocardial ischemia; Translations: [Atherosclerotic heart disease of [place] coronary artery without angina pectoris] Onset: 10-19-2022 Chronic Diabetes mellitus with complications (2 sources) Hyperglycemia due to type 2 diabetes mellitus; Translations: [Type 2 diabetes mellitus with hyperglycemia] 05-02-2024 Chronic Disorders of lipid metabolism (4 sources) Hyperlipidemia, unspecified; Translations: [Mixed hyperlipidemia] Onset: 04-26-2024 Chronic Essential hypertension (2 sources) [...] Name Value Interpretation Reference Range Facil ity Orders Onlyon 10-24-2024 Orders Only [id number] Gregory Swain 1950 M Date Provider Department Center 10/24/2024 [id number], HISTORICAL DENICE CARD [facility] Family History Problem Relation Age of Onset Pancreatitis Mother Supraventricular tachycardia Mother Atrial fibrillation Mother Family Status - Relation Status Age at Mother Father Normal [facility] Office Visiton 10-10-2024 Follow-up visit [id number] Gregory Swain 1950 M Date Provider Department Center 10/10/2024 [id number] SCOTT [facility] Family History Problem Relation Age of Onset Pancreatitis Mother Supraventricular tachycardia Mother Atrial fibrillation Mother Family Status - Relation Status Age at Mother Father Level of Service:17662 NC OFFICE/OUTPATIENT ESTABLISHED MOD MDM 30 MIN Normal [facility] Office Visiton 04-26-2024 Follow-up visit [id number] Gregory Swain 1950 M Date Provider Department Center 04/26/2024 [id number] [facility] Family History Problem Relation Age of Onset Pancreatitis Mother Supraventricular tachycardia Mother Atrial fibrillation Mother Family Status - Relation Status Age at Mother Level of Service:38565 NC OFFICE/OUTPATIENT ESTABLISHED LOW MDM 20 MIN Normal [facility] Office Visiton 10-30-2023 Follow-up visit [id number] Gregory Swain 1950 M Date Provider Department Center 10/30/2023 [id number] CHIN Family History Problem Relation Age of Onset Pancreatitis Mother Supraventricular tachycardia Mother Atrial fibrillation Mother Family Status - Relation Status Age at Mother Level of Service:66193 NC OFFICE/OUTPATIENT ESTABLISHED MOD MDM 30 MIN Normal [facility] COVID Quick Testingon 2022 Result Negative [facility] Other Quick Strepon 09-18-2022 S. pyogenes Org specific cx Ql (Throat) Negative [facility] Other Quick Strep [facility] Other COVID + FLU Quick Testingon 06-07-2022 SARS-CoV-2 (COVID-19) RNA LEANN+probe Ql (Unsp spec) Positive [facility] Other COVID + FLU Quick Testing Negative [facility] Other Vital Signs Date Time Vital Sign Value Performing Clinician Facility 05-02-2024 15:25-0500 Body mass index (BMI) [Ratio] 39.48 kg/m2 Michelle Dillard TUG BOAT ENGINEER Work Phone: [facility] [email or web address] 05-02-2024 15:25-0500 Body weight 104.33 kg Michelle Dillard TUG BOAT ENGINEER Work Phone: [facility] [email or web address] 05-02-2024 15:25-0500 Diastolic blood pressure 72 mm[Hg] Michelle Dillard TUG BOAT ENGINEER Work Phone: [facility] [email or web address] 05-02-2024 15:25-0500 Heart rate 61 /min Michelle Dillard TUG BOAT ENGINEER Work Phone: [facility] [email or web address] 05-02-2024 15:25-0500 SaO2% (BldA) [Mass fraction] 98 % Michelle Dillard TUG BOAT ENGINEER Work Phone: [facility] [email or web address] 05-02-2024 15:25-0500 Systolic blood pressure 120 mm[Hg] Michelle Dillard TUG BOAT ENGINEER Work Phone: [facility] [email or web address] 09-18-2022 09:00-0400 Body height 162.56 cm Janna Blankenship Other [facility] Other 09-18-2022 09:00-0400 Body mass index (BMI) [Ratio] 37.07 kg/m2 Janna Blankenship Other [facility] Other 09-18-2022 09:00-0400 Body temperature 98.4 [degF] Janna Blankenship Other [facility] Other 09-18-2022 09:00-0400 Body weight 97.98 kg Janna Blankenship Other [facility] Other 09-18-2022 09:00-0400 Diastolic blood pressure 70 mm[Hg] Janna Blankenship Other [facility] Other 09-18-2022 09:00-0400 Respiratory rate 18 /min Janna Osbornley Other [facility] Other 09-18-2022 09:00-0400 SaO2% (BldA) [Mass fraction] 97 % Janna Osbornley Other [facility] Other 09-18-2022 09:00-0400 Systolic blood pressure 118 mm[Hg] Janna Osbornley Other [facility] Other 06-20-2022 10:10-0400 Body height 162.56 cm Malia Zaldivar Other [facility] Other 06-20-2022 10:10-0400 Body temperature 97.3 [degF] Malia Zaldivar Other [facility] Other 06-20-2022 10:10-0400 Respiratory rate 18 /min Malia Zaldivar Other [facility] Other 06-20-2022 10:10-0400 SaO2% (BldA) [Mass fraction] 97 % Malia Hensonmond Other [facility] Other 06-07-2022 09:00-0500 Body height 162.56 cm Malia Kayley Other [facility] Other 06-07-2022 09:00-0500 Body mass index (BMI) [Ratio] 38.45 kg/m2 Malia Kayley Other [facility] Other 06-07-2022 09:00-0500 Body temperature 102 [degF] Malia Zaldivar Other [facility] Other 06-07-2022 09:00-0500 Body weight 101.61 kg Malia Zaldivar Other [facility] Other 06-07-2022 09:00-0500 SaO2% (BldA) [Mass fraction] 96 % Malia Zaldivar Other [facility] Other Encounters Encounter Date Encounter Type Care Provider Facility Start: 10-10-2024 End: 10-10-2024 ambulatory [facility] Start: 05-02-2024 End: 05-02-2024 Office outpatient visit 15 minutes Michelle Dillard TUG BOAT ENGINEER Work Phone: [facility] Comment on above: Mild cognitive impai rment (Primary Dx); ALEXYS on CPAP; Type 2 diabetes mellitus with hyperglycemia, without long-term current use of insulin ([facility] Start: 05-02-2024 End: 05-02-2024 ambulatory MICHELLE DILLARD Not Available Start: 05-02-2024 End: 05-02-2024 Bamboo flowsheet Michelle Dillard TUG BOAT ENGINEER Work Phone: [facility] Start: 05-02-2024 End: 05-02-2024 Bamboo flowsheet Michelle Dillard TUG BOAT ENGINEER Work Phone: [facility] Start: 04-26-2024 End: 04-26-2024 ambulatory [facility] Start: 10-30-2023 End: 10-30-2023 ambulatory [facility] Start: 10-23-2023 End: 10-23-2023 ambulatory MICHELLE DILLARD Not Available Start: 09-18-2022 End: 09-18-2022 ambulatory Janna Blankenship Other [facility] Other Start: 09-18-2022 Office outpatient visit 15 minutes Janna Blankenship [facility] Start: 06-20-2022 End: 06-20-2022 ambulatory Malia Kayley Other [facility] Other Start: 06-20-2022 Office outpatient visit 15 minutes Malia Zaldivar [facility] Start: 06-07-2022 End: 06-07-2022 ambulatory Malia Kayley Other [facility] Other Start: 06-07-2022 Office outpatient ne w 20 minutes Malia Zaldivar [facility] Plan of Treatment Date Care Activity Detail Author Start: 11-12-2024 End: 11-12-2024 Patient encounter procedure 11/12/2024 1:00 PM EDT Office Visit [facility] [address] [phone] Michelle Dillard NP [address] [place] [phone] [facility] Start: 05-02-2024 End: 05-02-2024 Patient encounter procedure 05/02/2024 4:00 PM EST Office Visit [facility] [address] [place] [phone] Michelle Dillard NP [address] [phone] Arrived [facility] Comment on above: Arrived Start: 2013 Pneumococcal Vaccine : 65+ Years (1 of 1 - PCV) Pneumococcal Vaccine: 65+ Years (1 of 1 - PCV) [facility] Start: 1950 Screening for malign ant neoplasm of colon [facility] Payers Date Payer Category Payer Medicare (Managed Care) [employer] M [employer] ADVANTAGE [id number] 2022 Medicare [id number] 1950 Unknown [id number] 1950 Unknown [id number] Social History Date Type Detail Facility Start: 10-23-2023 Sex Assigned At N [facility] Other Start: 10-18-2023 Tobacco smoking stat [facility] Never smoked tobacco [facility] Start: 10-18-2023 Tobacco use and exposure Smokeless tobacco non-user [facility] Start: 10-23-2023 End: 05-02-2024 Alcoholic beverage intake Lifetime non-drinker (finding) [facility] Start: 10-23-2023 History of Social function [facility] Start: 1950 Sex assigned at Not on file [facility] Progress note 10-10-2024 Note Date & Type Note Facility 10-10-2024 Note [facility] Cardiology Clinic Note Chief Complaint: Patient is [...] 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 This was abnormal. This led to [...] should problems arise Berny Larson MD, MPH, LOCATED WITHIN [facility], [facility] Interventional Cardiology Pager Email: [email or web address] Berny Larson MD, MPH, LOCATED [facility]IN [facility], [facility] Interventional Cardiology Pager Email: [email or web address] [1] Family History Problem Relation Name Age [...] morning and at bedtime., Disp: , Rfl: [facility] History of Present illness Narrative 05-02-2024 Michelle Dillard, TUG BOAT ENGINEER - 05/02/2024 4:00 PM EST Note Date [...] now resolved. He is working with his fell cutter to possibly obtain a new CPAP mask. [...] 2 (diabetes mellitus, type 2) (CMS/HCC) Hypertension (CMS/HCC) ALEXYS (obstructive sleep apnea) Past Surgical History: [...] wrist extensors , wrist flexor , and upper cutter out strength 5/5. LUE strength deltoid , biceps , triceps , wrist extensors , wrist flexor , and upper cutter out strength 5/5. RLE strength iliopsoas, quadriceps, tibialis [...] reflex 0. LLE knee reflex 0. Coordination: [id number]-hg-sjon testing normal. Rapid alternating movements are normal. Gait: Normal. Review and summary of old records: MOCA score at [facility] on 05/02/24: with 4/5 recall. Vitamin B12 level on 04/14/23: 297. Labs on 03/11/23: GFR 54 (low). TSH on 09/20/22: 2.08. MRI of the brain w and w/o contrast at [facility] on 03/31/23: No acute intracranial process. Mild diffuse parenchymal volume loss. Macario cognitive assessment (MOCA) score at [facility] 03/08/23: . Assessment/Plan Diagnoses and all orders [...] hyperglycemia, without long-term current use of insulin ([facility]) PLAN: - Follow up closely with primary care provider for adequate blood glucose management Diagnosis and treatment options discussed in detail. All questions answered. The patient verbalizes understanding and is agreeable to the plan. Discussion in layman's terms. Follow up in the office within 6 months; sooner if needed for new or worsening symptoms. Michelle Dillard NP [facility] documented in this encounter [facility] Progress note 04-26-2024 Note Date & Type [...] at this time. He states that his fell cutter told him he should be on lifelong [...] as needed Fahad Chin MD Interventional Cardiology [facility] Progress note 10-30-2023 Note Date & Type [...] at this time. He states that his fell cutter told him he should be on lifelong [...] risk factor mod (more content not included)... [facility] Evaluation note 09-18-2022 Note Date & Type Note Facility 09-18-2022 Evaluation note Encounter Date Diagnosis Assessment Notes Sep, Sore throat (ICD-10 - J02.9) 18 Sep, 2022 Viral URI with cough (ICD-10 - J06.9) [...] 7 days, sooner if significantly worsening symptoms. [facility] Other Evaluation note 06-20-2022 Note Date & [...] the ER for worsening symptoms or concerns [facility] Other Evaluation note 06-07-2022 Note Date & [...] J40) Jun, Acute cough (ICD-10 - R05.1) [facility] Other History general Narrative - Reported 06-01-2022 Note Date & Type Note Facility 06-01-2022 History general N arrative - Reported Type Medical History hypertension Medical History high cholesterol Medical History COVID 06/2022 Surgical History right and left knee replacement Surgical History 2 stents Hospitalization History see surgical hx [facility] Other Evaluation note Note Date & Type Note Facility Evaluation note Diagnosis Mild cognitive impairment- Primary Mild cognitive impairment, so stated ALEXYS on CPAP Type 2 diabetes mellitus with hyperglycemia, without long-term current use of insulin ([facility]) documented in this encounter [facility] History general Narrative - Reported Note Date & Type Note Facility History general Narrative - Reported Type Medical History hypertension Medical History high cholesterol Surgical History right and left knee replacement Surgical History 2 stents Hospitalization History see surgical hx [facility] Other Summary Purpose Family History No Family History Records FoundNo Family History Records Found Advance Directives No Advanced Directives Records FoundNo Advanced Directives Records Found Additional Source Comments REASON FOR VISIT (unrecogniz ed section and content) Reason Comments Memory Loss Care Teams (unrecognized sec tion and content) Fast Food Cook Relationship Specialty Start Date End Date Muriel Beach MD [address] [place] [address] PCP - General Manager Dental 05/02/24 Cm Cho DO [address] [id number] Referring Physician Neurology 05/02/24 Fast Food Cook Relationship Specialty Start Date End Date Muriel Beach MD [address] [place] [address] PCP - General Manager Dental 05/02/24 Cm Cho DO [address] [address] Referring Physician Neurology 05/02/24 (unrecognized sect ion and content) No Status Records FoundNo Status Records Found INFORMATION SOURCE (unrecogn ized section and content) DATE CREATED AUTHOR 05/04/2024 [facility] DATE CREATED AUTHOR AUTHOR'S MELI CROCKETT 10/28/2024 [facility] FOR RECORDS PERTAINING TO PATIENTS WHO ARE [...] BE BASED ON THE PRIMARY CLINICAL RECORDS. [employer] [facility]. provides no warranty or guarantee of the accuracy or completeness of information in this document.
--- OUTSIDE RECORDS SUMMARY | 2024-10-28 07:48 | XMS_ITS | Clinical Summary ---
Author Organization [facility] Healthcare Address [address] [place] [address] Care Team Providers Care Head Animal Trainer Name Role Phone Muriel Beach MD Primary Care Provider [phone] Cm Cho DO Unavailable [phone] Allergies Active Allergy Reactions Criticality Noted Date Comments Sulfa Antibiotics 10/18/2023 Medications aspirin 81 MG EC tablet Take 81 mg by mouth Daily Active atorvastatin (Lipitor) 80 MG tablet Take 80 mg by mouth Daily Active hydroCHLOROthia zide (HYDRODiuril) 25 MG tablet Take 25 mg by mouth Daily Active clopidogrel (Plavix) 75 MG tablet Take by mouth Daily Active metoprolol tartrate (Lopressor) 50 MG tablet Take 50 mg by mouth in the morning and 50 mg before bedtime. Active Multiple Vitamins-Minera ls (Mens 50+ Multivitamin) tablet Take 1 tablet by mouth Daily Active Active Problems Problem Noted Date Diagnosed Date Memory loss 10/18/2023 Mild cognitive impairment 10/18/2023 Family History Medical History Relation Name Comments Cancer Father Hypertension Mother Stroke Mother Relation Name Status Comments Father Mother Social History Tobacco Use Types Packs/Day Years Used Date Smoking Tobacco: Never Smokeless Tobacco: Never Tobacco Cessation:Counseling Given: Not Answered Alcohol Use Standard Drinks/Week Comments Never 0 (1 standard drink = 0.6 oz pur e alcohol) Sex and Gender Information Value Date Recorded Sex Assigned at Not on file Legal Sex Male 9:58 AM EDT Gender Identity Not on file Sexual Orientation Not on file Last Filed Vital Signs Vital Sign Reading Time Taken Comments Blood Pressure 120/72 05/02/2024 3:25 PM EST Pulse 61 05/02/2024 3:25 PM EST Temperature - - Respiratory Rate 16 10/23/2023 2:44 PM EDT Oxygen Saturation 98% 05/02/2024 3:25 PM EST Inhaled Oxygen Concentration - - Weight 104 kg (230 lb) 05/02/2024 3:25 PM EST Height 162.6 cm (5' 4 ) 10/23/2023 2:44 PM EDT Body Mass Index 39.48 10/23/2023 2:44 PM EDT Plan of Treatment Health Maintenance Due Date Last Done Comments Pneumococcal Vaccine: 65+ Years (1 of 1 - PCV) 999 Influenza Vaccine (#1) 2024 02/23/2024 Insurance [employer] MEDICARE ADVANTAGE Care Teams Head Animal Trainer Relationship Specialty Start Date End Date Muriel Beach MD [address] [place], [place] [id number] PCP - General Process Description Writer 05/02/24 Cm Cho DO [address] [address] Referring Physician Neurology 05/02/24
--- OUTSIDE RECORDS SUMMARY | 2024-10-28 07:48 | XMS_ITS | Patient Health Record ---
Author Organization [facility] Address [address] [facility] [address] [place], [place] [id number] Care Team Providers Care Surgical Elastic Knitter Name Role Phone Jayce Curtis MD Primary Care Provider Reason For Referral No Information Plan Of Treatment No Information
--- OUTSIDE RECORDS SUMMARY | 2024-10-28 07:48 | XMS_ITS | Patient Health Record ---
Author Organization [facility] are Address [address] [place] [address] Care Team Providers Care Information Technology Manager Name Role Phone NOE LIRIANO MD Primary Care Provider Unavailaimee arshad RUEL GORAN Unavailable [phone] Allergies Allergen (clinical drug ingredient) Drug/Non Drug Allergy documented on EMR Reaction Allergy Type Onset Date Status Sulfur Unknown Drug Allergy Active Reason For Referral No Information Medications Medication SIG (Take, Route, Frequency, Duration) Notes Start Date End Date Status Metoprolol Tartrate 50 MG 1 tablet with food Orally Twice a day for 30 day(s) Active Atorvastatin Calcium 80 MG 1 tablet Oral ly Once a day for 30 day(s) Active hydroCHLOROthiazide 25 MG 1 tablet in th e morning Orally Once a day for 30 day(s) Active Clopidogrel Bisulfate 75 MG 1 tablet Ora lly Once a day for 30 day(s) Active Meloxicam 15 MG 1 tablet Orally Once a day for 30 day(s) Active Social History Tobacco Use: Social History Observation Description Date Details (start date - stop date) Never Smoker NA - NA Smoking: Question Answer Notes Are you a: never smoker Alcohol Screening Question Answer Notes Did you have a drink contain ing alcohol in the past year? Yes How often did you have a dri nk containing alcohol in the past year? Two to three times per week (3 points) How many drinks did you have on a typical day when you were drinking in the past year? 1 or 2 (0 points) How often did you have six o r more drinks on one occasion in the past year? Never (0 points) Points 3 Interpretation Negative Problems Problem Type SNOMED Code ICD Code Onset Dates Problem Status W/U Status Risk Notes Problem Benign prostatic hyperplasia (702987072) BPH (benign prostatic hyperplasia) (N40.0) Active confirmed Problem Microscopic hematuria (627000163) Benign microscopic hematuria (R31.1) Active confirmed Problem Elevated PSA (613875979) Elevated PSA (R97.20) Active confirmed Plan Of Treatment Pending Test Test Name Order Date PSA, total 10/17/2018 CT UROGRAM (triple phase CT) ADD BUN AND CREATINE 10/17/2018 Insurance Providers Payer Name Payer Address Payer Phone Subscriber Number Group Number Insured Name Patient Relationship to Insured Coverage Start Date Coverage End Date [employer] [address] [address] [place] [address] [id number] GREGORY HENDERSON Self - patient is the insured Medical (General) History Medical History History ICD Code arthritis heart disease Surgical History Surgery Date(Month/Year) left knee 2006 right knee 2008 broken left foot. 2007 Hospitalization History Reason Date(Month/Year) heart catheter 2016
--- NOTE | 2024-10-28 08:00 | NM_ITS ---
Patient Name: GREGORY HENDERSON MR#: [id number] : 1950 Exam Date: 10/28/2024 Ordering Doctor: DR COLTEN LARSON M.D. RADIOLOGY REPORT PROCEDURE: NM MENA PERF SPECT REST STR COMPARISON: None. INDICATIONS: CHEST PAIN TECHNIQUE: Exam Description: Rest/Stress one day protocol gated SPECT Rest Imagin.9 mCi Tc-99m Cardiolite IV on 10/28/2024 Stress Imaging 30.9 mCi Tc-99m Cardiolite IV on 10/28/2024 Exercise Protocol: 0.4 mg Lexiscan given IV Heart Rate (bpm): Rest: 61 Max: 77 PMHR: 53 Blood Pressure: Rest: 140/76 Max: 140/76 Symptoms: Rest and peak stress ECG findings were pending, and the exercise portion of the study was pending per attending physician [facility]. For more details, please see separate cardiac stress test report. FINDINGS: QUALITY OF STUDY: Adequate PERFUSION DEFECT: LOCATION: Inferior SIZE: Moderate SEVERITY: Moderate TYPE: Fixed likely representing diaphragmatic attenuation WALL MOTION: Normal wall motion LV SIZE: 108 mL. TID / TCD: 0.9 LVEF: Calculated EF 59%. SUMMARY: Myocardial perfusion imaging study is normal CONCLUSION: 1. Myocardial perfusion is normal with diaphragmatic attenuation 2. Global left ventricular systolic function is normal 3. No evidence of significant transient ischemic dilatation Dictated by: Colten Larson M.D. on 10/29/2024 at 09:09 Approved by: Colten Larson M.D. on 10/29/2024 at 09:11
--- NOTE | 2024-10-28 09:49 | PC.NURSE ---
Nursing Note Cardiac Stress Test Reviewed: Medication, allergies and patient history reviewed. Stress Test: [x ] Patient tolerated stress test well. [ ] Patient unable to tolerate walking on treadmill. Switched to Lexiscan stress test. [x ] No chest pain noted per patient [ ] Chest pain that resolved prior to leaving stress lab. [x ] No dyspnea noted. [ ] Dyspnea that resolved prior to leaving stress lab. [x ] Patient left stress lab asymptomatic and hemodynamically stable. [ ] Patient taken to the Emergency Room due to non-resolving symptoms following stress test. [ ] Patient achieved target heart rate. [ ] Patient unable to achieve target heart rate. [ ] Aminophylline administered as reversal agent to Lexiscan (Regadenoson). [ ] Nitro administered. Nursing Comments:
[2024-10-28] MEDS: REGADENOSON 0.4 MG/5 ML SYRINGE IV (09:58)
--- NOTE | 2024-10-28 17:30 | P.STRESS_ITS ---
Stress Test Stress Test Requesting physician: Berny Larson Procedure: This was a Lexiscan stress test with myocardial perfusion imaging performed at the [facility] on 10/28/2024. Intravenous line was secured. The patient was attached to electrocardiographic monitoring. Baseline vital signs and ECG were obtained. Lexiscan 0.4 mg was administered intravenously followed by administration of Cardiolite. The patient then went on to obtain myocardial perfusion imaging. Resting heart rate was 61 bpm and peak heart rate was 77 bpm. Resting blood pressure was 140/76 and peak blood pressure was 140/76. General Information: Reason for Stress Test: Chest pain, CAD. Cardiac History and Risk Factors: Hypertension, stents, diabetes. Resting 12 - Lead Electrocardiogram: Sinus rhythm with first-degree AV block, left ventricular hypertrophy with QRS widening, cannot rule out septal infarct age undetermined. Stress Test: Protocol: Pharmacologic stress with Lexiscan. Exercise Capacity: Not assessed. Blood Pressure Response: Resting hypertension. Rhythm: Sinus with occasional PVCs. ST - Response: No ischemic ST changes seen. Patient Response: No symptoms. Interpretation: 1. No evidence of ischemic ECG changes seen following infusion of Lexiscan. 2. Myocardial perfusion images will be reported separately.
== END 2024-10-28 07:46 | disposition home or self-care (01) ==
LOC: NM 07:45
PROVIDERS: Visit Provider Internal Medicine Interventional Cardiology
DX: R07.9 Chest pain, unspecified (principal)
CPT/HCPCS: 78452; 93017; A9500; J2785

== ENCOUNTER 2024-12-04 08:02 | Outpatient (OUT) | payer MEDICARE, SELFPAY ==
--- OUTSIDE RECORDS SUMMARY | 2024-10-29 05:00 | XMS_ITS ---
Author Organization [facility] vices Address [address] [place], [place] [id number] Care Team Providers Care Salesperson Jewelry Name Role Phone Muriel Beach Primary Care Provider REASON FOR VISIT ear issues, having trouble hearing Social History Sex Assigned At : Social History Observation Description Sex Assigned At Male Encounters Encounter Location Date Provider Diagnosis Main [address] [place], [place] [id number] 10/29/2024 Muriel Beach Plan Of Treatment Next Appt Details Provider Name:Muriel Beach , 02/06/2025 08:30:00 AM, [address] [place], [place], [phone], Progress Notes * Stan SWAIN RDOB:1950 (74 yo M)Acc No.[id number]:10/29/2024 Medical Note Patient: Stan THOMAS Provider: Luz Beach :1950 A ge:74 Y S ex:Male Date:10/29/2024 Address:[address] [place], [place] [phone] Subjective: * Chief Complaints: * 1 . Ear issues, having trouble hearing. * Medical History: Objective: * Vitals: Assessment: Plan: * Treatment: * Billing Information: * Visit Code: * Procedure Codes: * Electronic signature of JHON Angel sa on 12/04/2024 at 08:05 AM EDT Sign off status: Pending * Provider: Luz Beach Date: 0 10/29/2024 Generated for Ke saez/Saúl/Liz on: 0 12/04/2024 08:05 AM EDT
--- OUTSIDE RECORDS SUMMARY | 2024-11-20 10:00 | XMS_ITS | Encounter Summary ---
Author Organization [facility] Address [address] [facility] [place] [address] Care Team Providers Care Internet E Commerce Specialist Name Role Phone Muriel Beach MD Primary Care Provider [phone] Cm Cho DO Unavailable [phone] Reason for Visit * Reason Comments Hearing Loss Audio 11/19/24 Encounter Details Date Type Department Care Team (Late st Contact Info) Description 11/20/2024 10:00 AM EDT Office Visit [facility] [address] [facility] [address] [place] [address] Jaqueline Frye MD [address] [facility] [address] [place] [address] Sensorineural hearing loss (SNHL), bilateral (Primary Dx) Social History Tobacco Use Types Packs/Day Years Used Date Smoking Tobacco: Never Smokeless Tobacco: Never Alcohol Use Standard Drinks/Week Comments Never 0 (1 standard drink = 0.6 oz pur e alcohol) Sex and Gender Information Value Date Recorded Sex Assigned at Not on file Legal Sex Male 9:58 AM EDT Gender Identity Not on file Sexual Orientation Not on file documented as of this encounter Last Filed Vital Signs Vital Sign Reading Time Taken Comments Blood Pressure 112/63 11/20/2024 9:43 AM EDT Pulse 70 11/20/2024 9:43 AM EDT Temperature - - Respiratory Rate - - Oxygen Saturation - - Inhaled Oxygen Concentration - - Weight 104 kg (230 lb) 11/20/2024 9:43 AM EDT Height 162.6 cm (5' 4 ) 11/20/2024 9:43 AM EDT Body Mass Index 39.48 11/20/2024 9:43 AM EDT documented in this encounter Progress Notes * Jaqueline Frye MD - 11/20/2024 10:00 AM EDT Subjective Patient ID: Stan Swain is a 74 y.o. male who presents for Hearing Loss (Audio 11/19/24) Pt reports he was prescribed lisinopril the last week of October and developed george severe to profound hearing loss within 3-4 days. Med stopped and PCP put pt on prednisone 50mg daily for 6 days. Pt feels hearing has returned to baseline. 11/19 audio shows george HFSNHL with slight asymmetry on the left. RT disc 100% and LT disc 96%. Review of Systems All other systems reviewed and are negative. Family History Problem Relation Name Age of Onset Hypertension Mother Stroke Mother Cancer Father Active Ambulatory Problems Diagnosis Date Noted Memory loss 10/18/2023 Mild cognitive impairment 10/18/2023 Chronic kidney disease, stage 3a ([facility]) 11/19/2024 Coronary artery disease involving [place] heart without angina pectoris 10/19/2022 Morbid (severe) obesity due to excess calories ([facility]) 11/19/2024 Primary hypertension 10/19/2022 Type 2 diabetes mellitus without complications ([facility]) 11/19/2024 Atherosclerosis of coronary artery without angina pectoris 11/20/2024 Benign prostatic hyperplasia 11/20/2024 Class 2 obesity 11/20/2024 Elevated PSA 11/20/2024 Hearing loss 11/20/2024 Hypertriglyceridemia 11/20/2024 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 Lower urinary tract symptoms due to benign prostatic hyperplasia 11/20/2024 Microscopic hematuria 11/20/2024 Resolved Ambulatory Problems Diagnosis Date Noted No Resolved Ambulatory Problems Past Medical History: Diagnosis Date DM type 2 (diabetes mellitus, type 2) ([facility]) Hypertension ALEXYS (obstructive sleep apnea) Past Surgical History: Procedure Laterality Date FOOT FRACTURE SURGERY Left KNEE ARTHROSCOPY W/ ARTHROTOMY TONSILLECTOMY TOTAL KNEE ARTHROPLASTY Allergies Allergen Reactions Lisinopril Other Patient lost hearing Sulfa Antibiotics Current Outpatient Medications on File Prior to Visit Medication Sig Dispense Refill aspirin 81 MG EC tablet Take 81 mg by mouth Daily atorvastatin (Lipitor) 80 MG tablet Take 80 mg by mouth Daily clopidogrel (Plavix) 75 MG tablet Take by mouth Daily hydroCHLOROthiazide (HYDRODiuril) 25 MG tablet Take 25 mg by mouth Daily losartan (Cozaar) 25 MG tablet Take 25 mg by mouth in the morning. metoprolol tartrate (Lopressor) 50 MG tablet Take 50 mg by mouth in the morning and 50 mg before bedtime. Multiple Vitamins-Minerals (Mens 50+ Multivitamin) tablet Take 1 tablet by mouth Daily No current facility-administered medications on file prior to visit. Objective Last Recorded Vitals Vitals: 11/20/24 0943 BP: 112/63 Pulse: 70 ENT Physical Exam Constitutional Appearance: patient appears well-developed and well-nourished, Head and Face Appearance: head appears normal and face appears atraumatic; Ear Ear comments: George ears normal Nose External Nose: nares patent bilaterally; external nose normal; Internal Nose: nasal mucosa normal; Oral Cavity/Oropharynx Lips: normal; Teeth: normal; Gums: gingiva normal; Tongue: normal; Oral mucosa: normal; Hard palate: normal; Neck Neck: neck normal; neck palpation normal; Thyroid: thyroid normal; Respiratory Inspection: breathing unlabored; normal breathing rate; Auscultation: breath sounds are clear; Cardiovascular Inspection: extremities are warm and well perfused; no peripheral edema present; Auscultation: regular rate and rhythm; Assessment/Plan Diagnoses and all orders for this visit: Sensorineural hearing loss (SNHL), bilateral Pt has a baseline george SNHL and had acute loss after starting an ACEI that has resolved. Repeat audio in 6 mo and F/U. MRI IAC if the left has deteriorated. Does not need HENDERSON. documented in this encounter Plan of Treatment Upcoming Encounters Date Type Department Care Team (Late st Contact Info) Description 05/21/2025 8:00 AM EST Clinical Support [facility] [address] [facility] [address] [place] [address] Olena oDbson, [facility] [address] [place] [address] 05/27/2025 8:00 AM EST Office Visit [facility] [address] [facility] [address] [place] [phone] Jaqueline Frye MD [address] [facility] [address] [place] [address] documented as of this encounter Visit Diagnoses Diagnosis Sensorineural hearing loss (SNHL), bilateral- Primary documented in this encounter Care Teams Internet E Commerce Specialist Relationship Specialty Start Date End Date Muriel Beach MD [address] [place], [place] [phone] PCP - General Print Room Worker 05/02/24 Cm Cho DO [address] [facility] [address] [place] [address] Referring Physician Neurology 05/02/24 documented as of this encounter
--- OUTSIDE RECORDS SUMMARY | 2024-11-25 23:59 | XMS_ITS | Continuity of Care Document ---
Author Organization [facility] Address [address] [place] [address] Care Team Providers Care Electrician Assistant Name Role Phone ROSMERY GRIGSBY Primary Care Physician Encounter FT_AMBFIN [id number] Date(s): 11/25/24 - 11/25/24 [facility] [address] [place] [address] Encounter Diagnosis Elevated PSA(Discharge Diagnosis) - 11/25/24 Asymptomatic microscopic hematuria(Discharge Diagnosis) - 11/25/24 BPH with obstruction/lower urinary tract symptoms(Discharge Diagnosis) - 11/25/24 Prostatitis(Discharge Diagnosis) - 11/25/24 Discharge Disposition: Home (Routine DC) Attending Physician: Raul QUEZADA MD Referring Physician: ROSMERY GRIGSBY Encounter Type: Clinic Allergies, Adverse Reactions, Alerts Substance Criticality Severity Reaction Reaction Severity Status lisinopril High criticality Severe Ac tive sulfa drugs Active Assessment and Plan Future Appointments Appointment Date:03/17/2025 08:45:00 AM Scheduled Provider: Location:[facility] Appointment Type:URO Nurse Visit Appointment Date:03/24/2025 09:15:00 AM Scheduled Provider:Raul QUEZADA MD Location:[facility] Appointment Type:URO Office Visit Diagnostic Tests Pending * Creatinine 11/25/24 Future Scheduled Tests Laboratory* PSA Free & Total 03/27/25 Immunizations Given and Recorded Vaccine Date Status Refusal Reason influenza virus vaccine, inactivated 02/23/24 Patrice rded Medications atorvastatin 80 mg Tab 80 mg = 1 tab(s), Refills(s) 0 Start Date: 11/25/24 Status: Ordered Repeat number: 1 clopidogrel 75 mg Tab Refills(s) 0 Start Date: 11/25/24 Status: Ordered Repeat number: 1 doxycycline hyclate 100 mg Cap 100 mg = 1 cap(s), Oral, BID, X 14 day(s), # 28 cap(s), Refills(s) 0, Pharmacy: [id number], 162, cm, 11/25/24 10:20:00 EDT, Height/Length Dosing, 102.9, kg, 11/25/24 10:20:00 EDT, Weight Dosing Start Date: 11/25/24 Stop Date: 12/09/24 Status: Ordered Quantity: 28.0 Unit: cap(s) Repeat number: 1 dutasteride 0.5 mg Cap 0.5 mg = 1 cap(s), Oral, Daily, # 90 cap(s), Refills(s) 3, Pharmacy: [facility], 162, cm, 11/25/24 10:20:00 EDT, Height/Length Dosing, 102.9, kg, 11/25/24 10:20:00 EDT, Weight Dosing Start Date: 11/25/24 Status: Ordered Quantity: 90.0 Unit: cap(s) Repeat number: 4 Indications: Benign prostatic hyperplasia with lower urinary tract symptoms; hydrochlorothiazide 25 mg Tab 25 mg = 1 tab(s), Refills(s) 0 Start Date: 11/25/24 Status: Ordered Repeat number: 1 losartan 25 mg Tab 25 mg = 1 tab(s), Refills(s) 0 Start Date: 11/25/24 Status: Ordered Repeat number: 1 Metoprolol tartrate 50 mg Tab 50 mg = 1 tab(s), Refills(s) 0 Start Date: 11/25/24 Status: Ordered Repeat number: 1 tamsulosin 0.4 mg Cap 0.4 mg = 1 cap(s), Oral, BID, # 90 cap(s), Refills(s) 3, Pharmacy: [facility], 162, cm, 11/25/24 10:20:00 EDT, Height/Length Dosing, 102.9, kg, 11/25/24 10:20:00 EDT, Weight Dosing Start Date: 11/25/24 Status: Ordered Quantity: 90.0 Unit: cap(s) Repeat number: 4 Indications: Benign prostatic hyperplasia with lower urinary tract symptoms; Problem List Condition Confirmation Course Effective Dates Status Health St atus Informant Asymptomatic microscopic hematuria Confirmed Active BPH with obstruction/lower urinary tract symptoms Confirmed Active Diabetes Confirmed Active Prostatitis Confirmed Active Procedures Procedure Date Related Diagnosis Body Site Status History of left knee replacement Completed History of right total knee replacement Completed Social History Social History Type Response Smoking Status Never (less than 100 in lifetime);Never entered on: 11/25/24 Sex Male Sex Representation Male (finding) Hospital Discharge Instructions Patient Education 11/25/2024 11:03:51 Prostatitis Prostatitis Prostatitis is swelling or inflammation of the prostate gland, also called the prostate. This glandis about 1.5 inches wide and 1 inch high, and it is involved in making semen. The prostate is located below a man's bladder, in front of the rectum. There are four types of prostatitis: ??? Chronic prostatitis (CP), also called chronic pelvic pain syndrome (CPPS). This is the most common type of prostatitis. It is associated with increased muscle tone in the area between the hip bones (pelvic area), around the prostate. This type is also known as a pelvic floor disorder. ??? Chronic bacterial prostatitis. This type usually results from an acute bacterial infection in the prostate gland that keeps coming back or has not been treated properly. The symptoms are less severe than those caused by acute bacterial prostatitis, which lasts a shorter time. ??? Asymptomatic inflammatory prostatitis. This type does not have symptoms and does not need treatment. This is diagnosed when tests are done for other disorders of the urinary tract or reproductivetract. ??? Acute bacterial prostatitis. This type starts quickly and results from an acute bacterial infection in the prostate gland. It is usually associated with a bladder infection, high fever, and chills. This is the least common type of prostatitis. What are the causes? Bacterial prostatitis is caused by an infection from bacteria. Chronic nonbacterial prostatitis may be caused by: ??? Factors related to the nervous system. This system includes thebrain, spinal cord, and nerves. ??? An autoimmune response. This happens when the body's disease-fighting system attacks healthy tissue in the body by mistake. ??? Psychological factors. These have to do with how the mind works. The causes of the other types of prostatitis are usually not known. What are the signs or symptoms? Symptoms of this condition depend on the type of prostatitis you have. Acute bacterial prostatitis Symptoms may include: ??? Pain or burning during urination. ??? Frequent and sudden urges to urinate. ??? Trouble starting to urinate. ??? Fever. ??? Chills. ??? Pain in your muscles or joints, lower back, or lower abdomen. Other types of prostatitis Symptoms may include: ??? Sudden urges to urinate, or urinating often. ??? Trouble starting to urinate. ??? Weak urine stream. ??? Dribbling after urination. ??? Discharge coming from the penis. ??? Pain in the testicles, the penis, or the tip of the penis. ??? Pain in the area in front of the rectum and below the scrotum (perineum). ??? Pain when ejaculating. How is this diagnosed? This condition may be diagnosed based on: ??? A physical and medical exam. ??? A digital rectal exam. For this, the health care provider may use a finger to feel the prostate. ??? A urine test to check for bacteria. ??? A semen sample or blood tests. ??? Ultrasound. ??? Urodynamic tests to check how your body handles urine. ??? Cystoscopy to look inside your bladder or inside the part of your body that drains urine from the bladder (urethra). How is this treated? Treatment for this condition depends on the type of prostatitis. Treatment may involve: ??? Medicines to relieve pain or inflammation, or to help relax your muscles. ??? Physical therapy. ??? Heat therapy. ??? Biofeedback. These techniques help you control certain body functions. ??? Relaxation exercises. ??? Antibiotic medicine, if your condition is caused by bacteria. ??? Sitz baths. These warm water baths help to relax your pelvic floor muscles, which helps to relieve pressure on the prostate. Follow these instructions at home: Medicines ??? Take hntq-vsv-cteymph and prescription medicines only as told by your health care provider. ??? If you were prescribed an antibiotic medicine, take it as told by your health care provider. Donot stop using the antibiotic even if you start to feel better. Managing pain and swelling ??? Take sitz baths as directed by your health care provider. For a sitz bath, sit in warm water that is deep enough to cover your hips and buttocks. ??? If directed, apply heat to the affected area as often as told by your health care provider. Usethe heat source that your health care provider recommends, such as a moist heat pack or a heating pad. ??? Place a towel between your skin and the heat source. ??? Leave the heat on for 20???30 minutes. ??? Remove the heat if your skin turns bright red. This is especially important if you are unable to feel pain, heat, or cold. You may have a greater risk of getting burned. General instructions ??? Do exercises as told by your health care provider, if you were prescribed physical therapy, biofeedback, or relaxation exercises. ??? Keep all follow-up visits as told by your health care provider. This is important. Where to find more information ??? National [place] [employer] Diabetes and Digestive and Kidney Diseases: https://www.niddk.nih.gov Contact a health care provider if: ??? Your symptoms get worse. ??? You have a fever. Get help right away if: ??? You have chills. ??? You feel light-headed or feel like you may faint. ??? You cannot urinate. ??? You have blood or blood clots in your urine. Summary ??? Prostatitis is swelling or inflammation of the prostate gland. ??? Treatment for this condition depends on the type of prostatitis. ??? Take sxul-ers-utsyqtk and prescription medicines only as told by your health care provider. ??? Get help right away of you have chills, feel light-headed, feel like you may faint, cannot urinate, or have blood or blood clots in your urine. This information is not intended to replace advice given to you by your health care provider. Make sure you discuss any questions you have with your health care provider. Document Revised: 02/02/2023 Document Reviewed: 02/02/2023 [employer] Patient Education ?? 2023 [employer]. Follow Up Care 11/12/2024 09:10:12 With:PILAR VILLEGAS, Raul Francis, URL Address: [address] [place] [address] When: Unknown Comments:4 mos w/ PSA Patient Care team information Care Team Personnel Name: ROSMERY GRIGSBY Member Role: Primary Care Physician Address: [address] [place], [place] [address] [address] Telecom: Care Team Related Persons Name: CICI HENDERSON Insurance Providers Guarantor name: Health Plan Information #: 1 Payer: [employer] Payer Identifier: [id number] Member Number: [id number] Group Number: [id number] Subscriber Identifier: [id number] Relationship to Subscriber: Self Coverage Type: MEDICARE Coverage Verification Date: 24 Telecom: [phone] Address: [address]
--- OUTSIDE RECORDS SUMMARY | 2024-12-04 08:05 | XMS_ITS | Encounter Summary ---
Author Organization [facility] Address [address] [place] [address] Care Team Providers Care Trauma Nurse Name Role Phone Radha Shetty Primary Care Provider [phone] Fahad Chin MD Unavailable [phone] Encounter Details Date Type Department Care Team (Late st Contact Info) Description 11/29/2024 Telephone [place] [address] [place] [address] Olena Mcclendon MA Social History Tobacco Use Types Packs/Day Years [...] as of this encounter Plan of Treatment Upcoming Encounters Date Type Department Care Team (Late st Contact Info) Description 02/12/2025 9:15 AM EST Office Visit [facility] [address] [place] [address] Berny Larson MD [address] [facility] [address] [place] [address] documented as of this encounter Visit Diagnoses Not on filedocumented in this encounter Care Teams Trauma Nurse Relationship Specialty Start Date End Date Radha Shetty [address] PCP - General 10/19/22 Fahad Chin MD [address] [facility] [address] [place] [address] Cardiology 10/19/22 documented as of this encounter
--- OUTSIDE RECORDS SUMMARY | 2024-12-04 08:05 | XMS_ITS | Clinical Summary ---
Author Organization [facility] Address [address] [place] [address] Care Team Providers Care Semiconductor Assembler Name Role Phone Radha Shetty Primary Care Provider [phone] Fahad Chin MD Unavailable [phone] Allergies Active Allergy Reactions Criticality Noted Date Comments Sulfacetamide Rash Low 10/19/2022 Medications aspirin 81 mg EC tablet Take 1 tablet by mouth in the morning. Active atorvastatin (Lipitor) 80 mg tablet Take 1 tablet by mouth at bedtime. Active clopidogrel (Plavix) 75 mg tablet Take 1 tablet by mouth 1 (one) time each day. Active hydroCHLOROthiazi de (HYDRODiuril) 25 mg tablet Take 1 tablet by mouth 1 (one) time each day. Active metoprolol tartrate (Lopressor) 50 mg tablet Take 1 tablet by mouth in the morning and at bedtime. Active lisinopril 5 mg tabletIndications :Benign hypertensive heart disease without congestive heart failure Take 1 tablet (5 mg) by mouth once daily as directed. 90 tablet 3 5 10/11/19 26 Active losartan (Cozaar) 25 mg tabletIndications :Essential hypertension Take 1 tablet (25 mg) by mouth in the morning. 90 tablet 3 5 11/02/19 26 Active Active Problems Problem Noted Date Diagnosed Date Memory loss 10/18/2023 Mild cognitive impairment 10/18/2023 Coronary artery disease invo lving match-e-be-nash-she-wish band heart without angina pectoris 10/19/2022 10/19/2022 Primary hypertension 10/19/2022 10/19/2022 Encounters Date Type Department Care Team Description 11/29/[address] [facility] [address] [facility] [place] [address] Olena Mcclendon MA 11/29/[address] [facility] [address] [facility] [place] [address] Olena Mcclendon MA 11/29/[address] [facility] [address] [facility] [place] [address] Olena Mcclendon MA 11/01/[address] [facility] [address] [facility] [place] [address] Lauren Marie MA Essential hypertension (Primary Dx) 10/31/[address] [facility] [address] [facility] [place] [address] Lauren Marie MA 10/29/[address] [facility] [address] [facility] [place] [address] Provider, MD Lorena 10/24/[address] [facility] [address] [facility] [place] [address] Provider, MD Lorena 10/10/2024 9:15 AM EDT Office Visit [facility] [address] [facility] [place] [address] Berny Larson MD Silent myocardial ischemia (Primary Dx); Coronary artery disease involving [place]be[place]she[place]wish band coronary artery of match-e-be-nash[place]she[place]wish band heart without angina pectoris; Dyslipidemia; Benign hypertensive heart disease without congestive heart failure 10/10/[address] [facility] [address] [facility] [place] [address] Olena Mcclendon MA Chest pain, unspecified type (Primary Dx) 10/10/[address] [facility] [address] [facility] [place] [address] Olena Mcclendon MA Essential hypertension (Primary Dx) from Last 3 Months Family History Medical History Relation Name Comments Atrial fibrillation Mother Pancreatitis Mother Supraventricular tachycardia Mother Relation Name Status Comments Father Mother [...] Sign Reading Time Taken Comments Blood Pressure 123/73 10/10/2024 9:07 AM EDT Pulse 60 10/10/2024 9:07 AM EDT Temperature - - Respiratory Rate - - Oxygen Saturation 95% 10/10/2024 9:07 AM EDT Inhaled Oxygen Concentration - - Weight 104 kg (229 lb) 10/10/2024 9:07 AM EDT Height 162.6 cm (5' 4 ) 10/10/2024 9:07 AM EDT Body Mass Index 39.31 10/10/2024 9:07 AM EDT Plan of Treatment Upcoming Encounters Date Type Department Care Team (Late st Contact Info) Description 02/12/2025 9:15 AM EST Office Visit [facility] Heart at [facility] [address] [place] [address] Berny Larson MD [address] [facility] [place] [address] Health Maintenance Due Date Last Done Comments Diabetes: Hemoglobin A1C 1950 Medicare Annual Wellness (AWV) 1950 Diabetes: Retinopathy Screening 1958 Depression Screening 1960 Diabetes: Urine Protein Screening 06/07/1967 Pneumococcal Vaccine: 50+ Ye ars (1 of 2 - PCV) 06/07/1967 Adult Tetanus 1970 Zoster Vaccines (1 of 2) 1998 Fall Risk Screening 2013 COVID-19 Vaccine (1 - 2023-2 5 season) 2024 02/23/2024 Influenza Vaccine (#1) 2024 02/23/2024 HIB Vaccines Aged Out No longer eligi ble based on patient's age to complete this topic HPV Vaccines Aged Out No longer eligi ble based on patient's age to complete this topic IPV Vaccines Aged Out No longer eligi ble based on patient's age to complete this topic Meningococcal B Vaccine Aged Out No l onger eligible based on patient's age to complete this topic Meningococcal Vaccine Aged Out No nick magi eligible based on patient's age to complete this topic Rotavirus Vaccines Aged Out No longer eligible based on patient's age to complete this topic Procedures Procedure Name Priority Date/Time Associated Diagnosis Comments LEXISCAN STRESS MYOCARDIAL PERFUSION IMAGING Routine 10/28/2024 10:29 AM EDT BASIC METABOLIC PANEL Routine 10/24/2024 1:19 PM EDT from Last 3 Months Results * Lexiscan Stress Myocardial Perfusion Imaging (10/28/2024 10:29 AM EDT) Anatomical Region Laterality Modality Other us Historical Provider CV STRESS PROCEDURES Susan l Result * Basic metabolic panel (10/24/2024 1:19 PM EDT) Blood Venous blood specimen / Unknown us Historical Provider LAB BLOOD ORDERABLES Susan l Result from Last 3 Months Insurance [facility] MEDICARE ADVANTAGE Care Teams Semiconductor Assembler Relationship Specialty Start Date End Date Radha Shetty [address] PCP - General 10/19/22 Fahad Chin MD [address] [place] [address] Cardiology 10/19/22
--- OUTSIDE RECORDS SUMMARY | 2024-12-04 08:05 | XMS_ITS | Patient Health Record ---
Author Organization [facility] are Address [address] [place] [address] Care Team Providers Care Data Migration Consultant Name Role Phone NOE LIRIANO MD Primary Care Provider Salvador arshad RUEL GORAN Unavailable [phone] Allergies Allergen (clinical drug ingredient) Drug/Non Drug Allergy documented on EMR Reaction Allergy Type Onset Date Status Sulfur Unknown Drug Allergy Active Reason For Referral No Information Medications Medication SIG (Take, Route, Frequency, Duration) Notes Start Date End Date Status Metoprolol Tartrate 50 MG 1 tablet with food Orally Twice a day; Duration: 30 day(s) Active Atorvastatin Calcium 80 MG 1 tablet Oral ly Once a day; Duration: 30 day(s) Active hydroCHLOROthiazide 25 MG 1 tablet in th e morning Orally Once a day; Duration: 30 day(s) Active Clopidogrel Bisulfate 75 MG 1 tablet Ora lly Once a day; Duration: 30 day(s) Active Meloxicam 15 MG 1 tablet Orally Once a day; Duration: 30 day(s) Active Social History Tobacco Use: [...] Status Risk Notes Problem Benign prostatic hyperplasia (074850116) BPH (benign prostatic hyperplasia) (N40.0) Active confirmed Problem Microscopic hematuria (310275186) Benign microscopic hematuria (R31.1) Active confirmed Problem Elevated PSA (095963044) Elevated PSA (R97.20) Active confirmed Plan Of Treatment Pending Test Test Name Order Date PSA, total 10/17/2018 CT UROGRAM (triple phase CT) ADD BUN AND CREATINE 10/17/2018 Insurance Providers Payer Name Payer Address Payer Phone Subscriber Number Group Number Insured Name Patient Relationship to Insured Coverage Start Date Coverage End Date [employer] [address] [address] [place] [address] [id number] GREGORY HENDERSON Self - patient is the insured Medical (General) History Medical History History ICD Code arthritis heart disease Surgical History Surgery Date(Month/Year) left knee 2006 right knee 2007 broken left foot. 2007 Hospitalization History Reason Date(Month/Year) heart catheter 2017
--- OUTSIDE RECORDS SUMMARY | 2024-12-04 08:05 | XMS_ITS | Encounter Summary ---
Author Organization [facility] Address [address] [place] [address] Care Team Providers Care Teacher Private Name Role Phone Radha Shetty Primary Care Provider [phone] Fahad Chin MD Unavailable [phone] Encounter Details Date Type Department Care Team (Late st Contact Info) Description 11/29/2024 Telephone [facility] [address] [place] [address] Olena Mcclendon MA Social History [...] on file documented as of this encounter Miscellaneous Notes * Telephone Encounter - Olena Mcclendon MA - 11/29/2024 1:35 PM EDT Spoke to patient, Advised patient of Dr. Batista recommendations. Patient verbalized understanding and agreed with plan of care * Telephone Encounter - Olena Mcclendon MA - 11/29/2024 9:09 AM EDT Phone call from patient who states he has a rash from the Losartan which he started about a week ago. Patient states he has developed a rash about 2 to 3 days ago on his arms and his ribs area is starting to feel itchy. Patient states he took his dose of Losartan yesterday, patient states he did not take any this am and is going to stop taking it. Patient states he a a bad reaction to lisinopril which caused hearing loss and now he is having a reaction to the Losartan. Patient states he doesn'tunderstand why he is having reactions to bp medications, patient is wondering why he even has to take them he doesn't have high bp. Advised the patient he could take benadryl and use cortisone cream on the rash. Advised patient to seek medical treatment if his face swells or the rash becomes worse.Patient states he might just run down the road to and be seen. Patient schedule an appointment with you for 02/12 to discuss need for bp medications.Please advise. documented in this encounter Plan of Treatment Upcoming Encounters Date Type Department Care Team (Late st Contact Info) Description 02/12/2025 9:15 AM EST Office Visit [facility] Heart at [facility] [address] [place] [address] Berny Larson MD [address] [facility] [address] [facility] [place] [address] documented as of this encounter Visit Diagnoses Not on filedocumented in this encounter Care Teams Teacher Private Relationship Specialty Start Date End Date Radha Shetty [address] PCP - General 10/19/22 Fahad Chin MD [address] [facility] [address] [place] [address] Cardiology 10/19/22 documented as of this encounter
--- OUTSIDE RECORDS SUMMARY | 2024-12-04 08:05 | XMS_ITS | Encounter Summary ---
Author Organization [facility] Address [address] [place] [address] Care Team Providers Care Scientific Associate Name Role Phone Radha Shetty Primary Care Provider [phone] Fahad Chin MD Unavailable [phone] Encounter Details Date Type Department Care Team (Late st Contact Info) Description 11/29/2024 Telephone [place] [address] [place] [address] Olena Mcclendon MA Social History [...] Description 02/12/2025 9:15 AM EST Office Visit [facility] [address] [place] [address] Berny Larson MD [address] [facility] [address] [place] [address] documented as of this encounter Visit Diagnoses Not on filedocumented in this encounter Care Teams Scientific Associate Relationship Specialty Start Date End Date Radha Shetty [address] PCP - General 10/19/22 Fahad Chin MD [address] [facility] [address] [place] [address] Cardiology 10/19/22 documented as of this encounter
--- OUTSIDE RECORDS SUMMARY | 2024-12-04 08:06 | XMS_ITS | Clinical Summary ---
Author Organization [facility] Address [address] [place] [address] Care Team Providers Care Pipe Fitter Fire Sprinkler Systems Name Role Phone Muriel Beach MD Primary Care Provider [phone] Cm Cho DO Unavailable [phone] Allergies Active Allergy Reactions Criticality Noted Date Comments Lisinopril Other 11/20/2024 Patient lost hearing Sulfa Antibiotics 10/18/2023 Medications aspirin 81 MG [...] Take 1 tablet by mouth Daily Active losartan (Cozaar) 25 MG tablet Take 25 mg by mouth in the morning. 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 Lower urinary tract symptoms due to benign prostatic hyperplasia 11/20/2024 Microscopic hematuria 11/20/2024 Chronic kidney disease, stage 3a 11/19/2024 Overview (11/19/2024): Noted by SEB BOTELLO NP last documented on [id number] Morbid (severe) obesity due to excess calories 0 11/19/2024 Overview (11/19/2024): Noted by SEB BOTELLO NP last documented on [id number] Type 2 diabetes mellitus without complications 0 11/19/2024 Overview (11/19/2024): Noted by SEB BOTELLO NP last documented on [id number] Memory loss 10/18/2023 Mild cognitive impairment 10/18/2023 Coronary artery disease invo lving [place] heart without angina pectoris 10/19/2022 Primary hypertension 10/19/2022 Encounters Date Type Department Care Team Description 11/20/2024 10:00 AM EDT Office Visit [facility] [address] [place] [place] [address] Jaqueline Frye MD Sensorineural hearing loss (SNHL), bilateral (Primary Dx) 11/20/2024 Travel 11/19/2024 3:00 PM EDT Clinical Support [facility] [address] [place] [address] Olena Dobson CCC-A Sudden hearing loss of both ears (Primary Dx) 11/19/2024 Bamboo flowsheet [facility] [address] [place] [address] Olena Dobson CCC-A from Last 3 Months Family History Medical [...] AM EDT Temperature - - Respiratory Rate 16 10/23/2023 2:44 PM EDT Oxygen Saturation 98% 05/02/2024 3:25 PM EST Inhaled Oxygen Concentration - - Weight 104 kg (230 lb) 11/20/2024 9:43 AM EDT Height 162.6 cm (5' 4 ) 11/20/2024 9:43 AM EDT Body Mass Index 39.48 11/20/2024 9:43 AM EDT Plan of Treatment Upcoming Encounters Date Type Department Care Team (Late st Contact Info) Description 05/21/2025 8:00 AM EST Clinical Support [facility] [address] [facility] [address] [place] [address] Olena Dobson CCC-A [address] [facility] [place] [address] 05/27/2025 8:00 AM EST Office Visit [facility] [address] [facility] [address] [place] [address] Jaqueline Frye MD [address] [facility] [address] [place] [address] Health Maintenance Due Date Last Done Comments Pneumococcal Vaccine: 65+ Years (1 of 1 - PCV) 999 Influenza Vaccine (#1) 2024 02/23/2024 Procedures Procedure Name Priority Date/Time Associated Diagnosis Comments AUDITORY FUNCTION TESTS Routine 11/19/2024 4:01 PM EDT from Last 3 Months Results * Auditory function tests (11/19/2024 4:01 PM EDT) Narrative Olena Dobson CCC-Luz - 11/19/2024 4:01 PM EDT Right Ear: Mild to moderate sensorineural hearing loss above 2K Hz. Left Ear: Mild to severe sensorineural hearing loss above 2K Hz. Olena Dobson CCC-A AUDIOLOGY SERVICES ORDERA BLES Final Result from Last 3 Months Insurance [employer] ADVANTAGE Care Teams Pipe Fitter Fire Sprinkler Systems Relationship Specialty Start Date End Date Muriel Beach MD [address] [place] [address] PCP - General Switch Foreman 05/02/24 Cm Cho DO [address] [address] Referring Physician Neurology 05/02/24
--- OUTSIDE RECORDS SUMMARY | 2024-12-04 08:06 | XMS_ITS | Patient Health Record ---
Author Organization [facility] Address [address] [place] [address] Care Team Providers Care Systems Integration Engineer Name Role Phone Osei Renee Primary Care Provider Amber Persaud MD, Veronica Unavailable Reason For Referral No Information Plan Of Treatment No Information Insurance Providers Payer Name Payer Address Payer Phone Subscriber Number Group Number Insured Name Patient Relationship to Insured Coverage Start Date Coverage End Date [employer] F[employer] [address] [address] [place] [address] [id number] GREGORY HENDERSON Self - patient is the insured
--- OUTSIDE RECORDS SUMMARY | 2024-12-04 08:06 | XMS_ITS | Patient Health Record ---
Author Organization [facility] Address [address] [facility] [place], [place] [id number] Care Team Providers Care Vehicle Detailer Name Role Phone Jayce Curtis MD Primary Care Provider Reason For Referral No Information Plan Of Treatment No Information
--- OUTSIDE RECORDS SUMMARY | 2024-12-04 08:06 | XMS_ITS | Encounter Summary ---
Author Organization [facility] Address [address] [facility] [place] [address] Care Team Providers Care Feed Mill Operator Name Role Phone Muriel Beach MD Primary Care Provider [phone] Cm Cho DO Unavailable Encounter Details Date Type Department Care Team (Latest Contact Info) Description 11/20/2024 Travel Social History Tobacco Use Types Packs/Day Years [...] Clinical Support [facility] [address] [facility] [address] [place] [address] Olena Dobson, [facility] [address] [place] [address] 05/27/2025 8:00 AM EST Office Visit [facility] [address] [facility] [address] [place] [address] Jaqueline Frye MD [address] [facility] [address] [place], [place] [address] documented as of this encounter Visit Diagnoses Not on filedocumented in this encounter Care Teams Feed Mill Operator Relationship Specialty Start Date End Date Muriel Beach [facility] [address] [facility] [place] [place] [address] PCP - General Cloth Examiner Machine 05/02/24 Cm Cho DO [address] [place] [address] Referring Physician Neurology 05/02/24 documented as of this encounter
--- OUTSIDE RECORDS SUMMARY | 2024-12-04 08:06 | XMS_ITS | Patient Health Record ---
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 Name Role Phone Muriel Beach Primary Care Provider [phone] Preston Trejo Unavailable [phone] Ly Banuelos Unavailable [phone] Autumn Emanuel Unavailable [phone] Kerry Romero Unavailable [phone] Allergies Allergen (clinical drug ingredient) Drug/Non Drug Allergy documented on EMR Reaction Allergy Type Onset Date Status lisinopril Lisinopril Unknown Drug Allergy Activ e sulfacetamide Sulfacetamide rash Drug Allergy Active Results Component Value Reference Range Notes HEMOGLOBIN A1C Reviewed date:01/29/2024 08:34:00 AM Interpretation: Performing Lab: Notes/Report: HEMOGLOBIN A1C 6.1 <5.7 % Prediabetes: 5.7% to 6.4% Diabetes: >6.4% Glycemic control for adults with diabetes: <7.0% Use with caution in patients with abnormal hemoglobin variants as the half-life of red blood cells and in vivo glycation rates are affected. UNLESS OTHERWISE INDICATED, ALL TESTING PERFORMED AT: [facility] [address] [place] [id number] ANCHORER: ROMELIA MARTE M.D. CLIA NUMBER [id number] CAP ACCREDITATION AUID [id number] Changes in testing location may be associated with reference range changes for a number of analytes. Please review reference intervals carefully. COMPREHENSIVE METABOLIC PANE L WITH GFR Reviewed [...] 6.3 6.0-8.3 g/dL ALBUMIN 4.2 3.5-5.2 g/dL POCT A1C Reviewed date:08/06/2024 08:41:10 AM Interpretation: Performing Lab: Notes/Report: MICROALBUMIN RANDOM SPEC Reviewed date:11/08/2024 10:51:50 AM Interpretation: Performing Lab: Notes/Report: SEVERELY INCREASED............ >300 MODERATELY INCREASED.......... 30-300 NORMAL........................ 0-29 INTERPRETATIVE GUIDE CREATININE,UR 174.9 NOT ESTAB mg/dL Reference interval for random urine samples has not been established. MICROALBUMIN 51.8 Note: Test name is changed to Urine Albumin from Microalbumin in accordance with ADA and NFK Guidelines, and Albumin/Creatinine ratio reference interval reflects those Guidelines. Analytic methodology is unchanged. No reference interval for Random Urine Albumin is available. MICROALB/CREAT RATIO 30 <30 mG/G PSA, TOTAL, 3RD GENERATION Reviewed date:11/08/2024 10:51:50 AM Interpretation: Performing Lab: Notes/Report: PSA, TOTAL 5.740 0-4.00 ng/mL Method: Moped Tonia ECLIA PSA levels should not be interpreted as absolute evidence of disease, however it is widely accepted as an adjunctive test in the management of prostate cancer patients. Values obtained with different assay methods or kits can not be used interchangeably. A detectable PSA following radical prostatectomy is associated with eventual clinical disease recurrence in some, but not all patients. It may also be due to the presence of benign glands. The AUA defines biochemical recurrence as an initial PSA value >=0.2 ng/ml followed by a subsequent confirmatory PSA value >=0.2 ng/ml. UNLESS OTHERWISE INDICATED, ALL TESTING PERFORMED AT: [facility] [address] [place] [address] ANCHORER: ROMELIA MARTE M.D. CLIA NUMBER [id number] CAP ACCREDITATION AUID [id number] POCT A1C Reviewed date:11/06/2024 10:39:02 AM Interpretation: Performing Lab: Notes/Report: Basic Metabolic Panel Reviewed date:10/25/2024 11:43:29 PM Interpretation: Performing Lab: Notes/Report: , [facility] Sodium 143 136-145 mmol/L Potassium 3.6 3.5-5.1 [...] Performing Lab: see note ML - [facility] NM jenny perf SPECT rest str Reviewed date:10/29/2024 11:27:54 AM Interpretation: Performing Lab: Notes/Report: Source Facility: [facility]-[address] [place] [address] [place] [address] Nuclear Medicine Report Signed Patient: GREGORY SWAIN MR#: [id number] : 1950 Acct:[id number] Age/Sex: 74 / M ADM Date: 10/28/24 Loc: NM Attending Dr: Berny Escobedo M.D. Ordering Physician: Berny Escobedo M.D. Date of Service: 10/28/24 Procedure(s): NM jenny perf SPECT rest str Accession Number(s): [id number] cc: Berny Escobedo M.D.; Muriel Beach NP Patient Name: GREGORY SWAIN MR#: [id number] : 1950 Exam Date: 10/28/2024 Ordering Doctor: DR BERNY ESCOBEDO M.D. RADIOLOGY REPORT PROCEDURE: NM JENNY PERF SPECT REST STR COMPARISON: None. INDICATIONS: CHEST PAIN TECHNIQUE: Exam Description: Rest/Stress one day protocol gated SPECT Rest Imagin.9 mCi Tc-99m Cardiolite IV on 10/28/2024 Stress Imaging 30.9 mCi Tc-99m Cardiolite IV on 10/28/2024 Exercise Protocol: 0.4 mg Lexiscan given IV Heart Rate (bpm): Rest: 61 Max: 77 PMHR: 53 Blood Pressure: Rest: 140/76 Max: 140/76 Symptoms: Rest and peak stress ECG findings were pending, and the exercise portion of the study was pending per attending physician [facility]. For more details, please see separate cardiac stress test report. FINDINGS: QUALITY OF STUDY: Adequate PERFUSION DEFECT: LOCATION: Inferior SIZE: Moderate SEVERITY: Moderate TYPE: Fixed likely representing diaphragmatic attenuation WALL MOTION: Normal wall motion LV SIZE: 108 mL. TID / TCD: 0.9 LVEF: Calculated EF 59%. SUMMARY: Myocardial perfusion imaging study is normal CONCLUSION: 1. Myocardial perfusion is normal with diaphragmatic attenuation 2. Global left ventricular systolic function is normal 3. No evidence of significant transient ischemic dilatation Dictated by: Berny Escobedo M.D. on 10/29/2024 at 09:09 Approved by: Berny Escobedo M.D. on 10/29/2024 at 09:11 Dictated By: Berny Escobedo M.D. Signed By: 10/29/24911 DD/ 1 TD/TT: Billet Sawyer: Reason For Referral Reason Would like hearing e valuated Diagnosis 1 Hearing difficulty o f both ears (H91.93) Referral Organization Main Referring Provider First Name Muriel Referring Provider Last Name Baylee Referred Provider [facility] Referred Provider Specialty Ear, nose an d throat surgeon General Notes Trudy Talbertily 11/02 10:38:28 AM >see scanned report Referral Priority Routine Referral Appointment Date 11/19/2024 Reason Elevated PSA Diagnosis 1 Elevated PSA (R97.20 ) Referral Organization Main Referring Provider First Name Muriel Referring Provider Last Name Baylee Referred Provider [facility] Be rudy Referred Provider Specialty Urology General Notes Roxanna Talbert 11/02 06:34:56 PM >see scanned document Referral Priority Routine Referral Appointment Date 11/25/2024 Medications Medication SIG (Take, Route, Frequency, Duration) Notes Start Date End Date Status Atorvastatin Calcium 80 MG 1 tablet Oral Once a day; Duration: 90 days Active Metoprolol Tartrate 50 MG TAKE 1 TABLET TWICE DAILY WITH FOOD; Duration: 90 Active Lancets - 1 lancet once a day; Duration: 90 days *whatever brand is covered by insurance TRUEPLUS 33G LANCET 11/09/2022 Active hydroCHLOROthiazide 25 MG TAKE 1 TABLET EVERY MORNING; Duration: 90 Active Clopidogrel Bisulfate 75 MG 1 tablet Oral Once a day; Duration: 90 days Active Blood Glucose Test Strip - 1 test strip once daily In Vitro; Duration: 90 days *whatever brand is covered by insurance 11/09/2022 Active Aspirin Adult Low Dose 81 MG 1 tablet Orally Once a day Active Blood Glucose Monitor - 1 meter check daily *whatever brand is covered by insurance 11/09/2022 Active Multivitamin - 1 tablet Orally Once a day Active Social History Tobacco Use: Social History [...] of a hangover? 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 Stress is when someone feels tense, nervous, anxious, or can't sleep at night because their mind is troubled Not at all patient entered data In the past year have you sp ent more than 2 nights in a row in a halfway, correction, senior care center, or juvenile correctional facility? No patient [...] Problem Status W/U Status Risk Notes Problem Type II diabetes mellitus without complication (105133400) Type 2 diabetes mellitus without complication, without long-term current use of insulin (E11.9) Active confirmed Problem Lower urinary tract symptoms due to benign prostatic hypertrophy (12139046326030) Benign prostatic hyperplasia with lower urinary tract symptoms (N40.1) Active confirmed Problem Amnesia (15488500) Memory change s (R41.3) Active confirmed Problem Hypertriglyceridemia (537891450) Hypertriglyceridemia (E78.1) Active confirmed Problem Obese class II (597221538031144) BMI 37.0-37.9, adult (Z68.37) Active confirmed Problem 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) Low HDL (under 40) (E78.6) Active confirmed Problem Hearing loss (75475022) Hearing difficulty of both ears (H91.93) Active confirmed Problem Primary hypertension (50312392) Primary hypertension (I10) Active confirmed Problem Chronic kidney disease stage 3A (167970298) Stage 3a chronic kidney disease (N18.31) Active confirmed Problem 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 (727182828757111) Coronary artery disease involving eagle heart without angina pectoris, unspecified vessel or lesion type (I25.10) Active confirmed Vital Signs Heart Rate 66 /min 11/06/2024 Payton Stephen 11/06/2024 08:29:20 AM EDT > Temperature 96.8 degrees Fahrenheit 11/06/2024 Feliz castanon Payton 11/06/2024 08:29:20 AM EDT > Respiratory Rate 18 /min 11/06/2024 Maribel Stephen 11/06/2024 08:29:20 AM EDT > Blood pressure diastolic 69 mm Hg 11/06/2024 Kelsey bautista Payton 11/06/2024 08:29:20 AM EDT > Oximetry 96 % 11/06/2024 Payton Stephen 11/06/2024 08:29:20 AM EDT > Height-cm 162.56 cm 11/06/2024 Payton Stephen 11/06/2024 08:29:20 AM EDT > Weight-kg 104.51 kg 11/06/2024 Payton Stephen 11/06/2024 08:29:20 AM EDT > Height 64 in 11/06/2024 Payton Stephen 11/06/2024 08:29:20 AM EDT > Blood pressure systolic 111 mm Hg 11/06/2024 Payton Diallo 11/06/2024 08:29:20 AM EDT > Weight 230.4 lbs 11/06/2024 Payton Stephen 11/06/2024 08:29:20 AM EDT > BMI 39.54 kg/m2 11/06/2024 Payton Stephen 11/06/2024 08:29:20 AM EDT > Procedures Procedure Date Ordered Date Performed Result Body Sit e EAR IRRIGATION 11/06/2024 11/06/2024 N/A Encounters Encounter Location Date Provider Diagnosis Main [address] [place] [id number] 02/01/2024 [facility] Type 2 diabetes kings itus without complication, without long-term current use of insulin E11.9 ; Primary hypertension I10 ; Impacted cerumen, right ear H61.21 ; Body mass index [BMI] 36.0-36.9, adult Z68.36 and Morbid (severe) obesity due to excess calories E66.01 Main [address] [place] [place], [place] [id number] 08/06/2024 [facility] Type 2 diabetes kings itus without complication, without long-term current use of insulin E11.9 ; Primary hypertension I10 ; Hypertriglyceridemia E78.1 ; Stage 3a chronic kidney disease N18.31 ; Severe obesity (BMI >= 40) E66.01 and BMI 40.0-44.9, adult Z68.41 Main [address] [place], [place] [id number] 10/28/2024 [facility] BMI 39.0-39.9,adult Z68.39 ; Hearing difficulty of both ears H91.93 and Obesity (BMI 30-39.9) E66.9 Main [address] [place] [id number] 11/06/2024 [facility] Type 2 diabetes kings itus without complication, without long-term current use of insulin E11.9 ; Primary hypertension I10 ; Hearing difficulty of both ears H91.93 ; Benign prostatic hyperplasia with lower urinary tract symptoms N40.1 ; Impacted cerumen of right ear H61.21 ; BMI 39.0-39.9,adult Z68.39 and Obesity (BMI 30-39.9) E66.9 Main [address] [place], [place] [id number] 12/05/2023 Autumn Emanuel Main [address] [place], [place] [id number] 12/05/2023 Autumn Emanuel Main [address] [place], [place] [id number] 12/15/2023 Autumn Emanuel Type 2 diabetes mellitus without complication, without long-term current use of insulin E11.9 [facility] [address] [place] [address] 01/15/2024 Ly Lakisha [facility] [address] [place] [id number] 03/06/20[facility] Type 2 diabetes kings itus without complication, without long-term current use of insulin E11.9 [facility] [address] [place], [place] [id number] 05/13/2024 [facility] Type 2 diabetes kings itus without complication, without long-term current use of insulin E11.9 [facility] [address] [place], [place] [id number] 05/13/2024 [facility] [address] [place], [place] [id number] 05/13/2024 [facility] Type 2 diabetes kings itus without complication, without long-term current use of insulin E11.9 [facility] [address] [place], [place] [id number] 10/09/2024 [facility] [address] [place], [place] [id number] 11/08/2024 [facility] Elevated PSA R97.20 Assessments Encounter Date Diagnosis (ICD Code) Assessment [...] prior to next appt from last appt. 10/28/2024 Hearing difficulty o f both ears (ICD-10 - H91.93) RX sent for Prednisone 50mg at this time Pt to continue w/ Debrox, as cerumen impaction was noted in right ear, left ear clear WNL Will consider ear irrigation at 11/06/24 appt Will consider ENT referral if hearing difficulty continues, as pt D/C'd Lisinopril 3 days ago d/t it causing these adverse side effects F/U 11/06/24 10/28/2024 BMI 39.0-39.9,adult (ICD-10 - Z68.39) 11/06/2024 Type 2 diabetes mellitus without complication, without long-term current use of insulin (ICD-10 - E11.9) DM stable. Will continue current medications. Encouraged healthy diet and exercise. F/u 3 months & PRN 11/06/2024 Primary hypertension (ICD-10 - I10) HTN stable. Will continue current medications. Encouraged healthy diet and exercise. F/u 3 months & PRN Continue following w/ Cardiology at this time 11/08/2024 Elevated PSA (ICD-10 - R97.20) 11/06/2024 Hearing difficulty o f both ears (ICD-10 - H91.93) Referral sent for ENT at this time. 10/28/2024 Obesity (BMI 30-39.9 ) (ICD-10 - E66.9) 02/01/2024 Impacted cerumen, ri ght ear (ICD-10 [...] next appt. F/U 3 months or PRN 11/06/2024 Benign prostatic hyperplasia with lower urinary tract symptoms (ICD-10 - N40.1) Pt reports he used to follow w/ Urology for enlarged prostate in the past Denies any symptoms at this time, would like PSA checked Will send referral if abnormal F/U 3 months or PRN 11/06/2024 Impacted cerumen of right ear (ICD-10 - H61.21) Completed Ear Irrigation In-office today, cerumen removed, excess skin remains at this time in canal, unable to visualize TM, pt reports he can hear better at this time Referral sent to ENT for further evaluation and Audiology tests F/U 3 months or PRN 08/06/2024 Severe obesity (BMI >= 40) (ICD-10 - E66.01) 02/01/2024 Morbid (severe) obes ity due to excess calories (ICD-10 - E66.01) 08/06/2024 BMI 40.0-44.9, adult (ICD-10 - Z68.41) 11/06/2024 BMI 39.0-39.9,adult (ICD-10 - Z68.39) 11/06/2024 Obesity (BMI 30-39.9 ) (ICD-10 - E66.9) Plan Of Treatment Next Appt Details Provider Name:Muriel Beach , 02/06/2025 08:30:00 AM, [address] [place], [place], [id number], Insurance Providers Payer Name Payer Address Payer Phone Subscriber Number Group Number Insured Name Patient Relationship to Insured Coverage Start Date Coverage End Date [employer] [address] [address] [place] [phone] [id number] Gregory Swain Self - patient is the insured 3 Medical (General) History Medical History History ICD Code Hypertension Coronary Artery Disease Benign Prostatic Hypertrophy Low HDL Surgical History Surgery Date(Month/Year) right knee replacement 2017 left knee replacement 2020 left foot surgery, pins 2008 pylocyst 1970 2 heart cath/stent 2016 Hospitalization History Reason Date(Month/Year) [place] [facility] 07/2021
--- OUTSIDE RECORDS SUMMARY | 2024-12-04 08:10 | XMS_ITS | CCD ---
Author Organization [facility] ion Partnership [facility] Care Team Providers Care Fish Roe Technician Name Role Phone KayleyMalia mercado Unavailable Pattie Janna Unavailable Baylee VILLEGAS, Muriel Primary Care Provider [phone] Cm Cho DO Unavailable Holden COOPER-SUPERVISOR POST WAVE-CMichelle Attending Provider Baylee HIGH SPEED WARPER TENDER-C, Faisal Gonzalez Primary Care Provider 1( [phone] Cm Cho DO Unavailable MICHELLE DILLARD Attending Unavailable OLENA DOBSON Attending Unavailable JAQUELINE THACKER Attending Unavailable BAYLEE MURIEL Primary Care Physician [phone] BAYLEE MURIEL Primary Care Unavailable Raul REHMAN Attending Unavailable BAYLEE, MURIEL Primary Care Unavailable Raul REHMAN Attending Unavailable BAYLEE, MURIEL Primary Care Unavailable Raul REHMAN Attending Unavailable BAYLEE, MURIEL Primary Care Unavailable BAYLEE MURIEL Referring Unavailable FAHAD CHIN Attending Unavailable BERNY LARSON Attending Unavailable Allergies Allergy Classification Reported Allergen(s) Allergy Type Date of Onset Reaction(s) Facility (10 sources) Substance with sulfonamide structure and antibacterial mechanism of action (substance) Drug allergy 4 [facility] (5 sources) Lisinopril; Translations: [lisinopril] Drug Allergy 5 [facility] (1 source) Sulfonamides (Antibiotic) Allergy to substance 5 [facility] (2 sources) Sulfonamide; Translations: [sulfa drugs] Drug allergy [facility] (1 source) Sulfacetamide; Translations: [SULFACETAMIDE] Drug Allergy 3 [facility] Repository Medications Current Medications Medication Drug Class(es) Dates Sig (Normalized) Sig (Original) Aspir-81 (3 sources) Aspir-81 Active aspirin 81 mg oral tablet (8 sources) Platelet Aggregation Inhibitor, Nonsteroidal Anti-inflammatory Drug Start: 11-12-2024 take 1 tablet by mouth once daily Aspirin 81 mg tablet Active 81 MG PO Daily November 12, 2024 12:00am Complies with drug therapy take 1 tablet by mouth once jorge l y aspirin 81 MG EC tablet Take 81 mg by mouth Daily Active atorvastatin 80 mg oral tablet (13 sources) HMG-CoA Reductase Inhibitor Start: 11-25-2024 atorvastatin 80 mg T ab 80 mg = 1 tab(s), Refills(s) 0 Start Date: 11/25/24 Status: Ordered Repeat number: 1 Start: 11-12-2024 End: 11-12-2024 take 1 tablet by mouth once daily Atorvastatin 80 mg tablet Active 80 MG PO Daily November 12, 2024 1:16pm Complies with drug therapy azithromycin 250 mg oral tablet (1 source) [...] Active Start: 06-20-2022 take 1 capsule by [facility] every eight hours Benzonatate 200 MG 1 capsule Orally Three times a day prn cough Jun, Active Start: 06-07-2022 take 1 capsule by [facility] every eight hours Tessalon Perles 100 MG 1 capsule as needed Orally Three times a day for 10 day(s) Jun, Active clopidogrel 75 mg oral tablet (10 sources) P2Y12 Platelet Inhibitor Start: 11-25-2024 clopidogrel 75 mg Ta b Refills(s) 0 Start Date: 11/25/24 Status: Ordered Repeat number: 1 Start: 11-12-2024 take 1 tablet by bryce once daily Clopidogrel 75 mg tablet Active 75 MG PO Daily November 12, 2024 12:00am Complies with drug therapy doxycycline hyclate 100 mg oral capsule (2 sources) Tetracycline-class Drug Start: 11-25-2024 End: 12-09-2024 take 1 capsule by mouth twice daily doxycycline hyclate 100 mg Cap 100 mg = 1 cap(s), Oral, BID, X 14 day(s), # 28 cap(s), Refills(s) 0, Pharmacy: [id number], 162, cm, 11/25/24 10:20:00 EDT, Height/Length Dosing, 102.9, kg, 11/25/24 10:20:00 EDT, Weight Dosing Start Date: 11/25/24 Stop Date: 12/09/24 Status: Ordered Quantity: 28.0 Unit: cap(s) Repeat number: 1 Start: 06-20-2022 take 1 capsule by [facility] every twelve hours Doxycycline Hyclate 100 MG 1 capsule Orally Twice a day for 10 Jun, Active dutasteride 0.5 mg oral capsule (1 source) 5-alpha Reductase Inhibitor Start: 11-25-2024 take 1 capsule by mouth once daily dutasteride 0.5 mg Cap 0.5 mg = 1 cap(s), Oral, Daily, # 90 cap(s), Refills(s) 3, Pharmacy: [facility], 162, cm, 11/25/24 10:20:00 EDT, Height/Length Dosing, 102.9, kg, 11/25/24 10:20:00 EDT, Weight Dosing Start Date: 11/25/24 Status: Ordered Quantity: 90.0 Unit: cap(s) Repeat number: 4 Indications: Benign prostatic hyperplasia with lower urinary tract symptoms; hydroCHLOROthiazide 25 mg oral tablet (13 sources) Thiazide Diuretic Start: 11-25-2024 hydrochlorothiazide 25 mg Tab 25 mg = 1 tab(s), Refills(s) 0 Start Date: 11/25/24 Status: Ordered Repeat number: 1 Start: 11-12-2024 End: 11-12-2024 take 1 tablet by mouth once daily Hydrochlorothiazide 25 mg tablet Active 25 MG PO Daily November 12, 2024 1:17pm Complies with drug therapy losartan potassium 25 mg oral tablet (5 sources) Angiotensin 2 Receptor Collette Start: 11-01-2024 End: 11-01-2025 losartan 25 mg Tab 25 mg = 1 tab(s), Refills(s) 0 Start Date: 11/25/24 Status: Ordered Repeat number: 1 Metoprolol (13 sources) beta-Adrenergic Collette Start: 11-25-2024 Metoprolol tartrate 50 mg Tab 50 mg = 1 tab(s), Refills(s) 0 Start Date: 11/25/24 Status: Ordered Repeat number: 1 Start: 11-12-2024 End: 11-12-2024 take 1 tablet by mouth twice daily Metoprolol Tartrate 50 mg tablet Active 50 MG PO Twice daily November 12, 2024 1:17pm Complies with drug therapy Multiple Vitamins-Minerals (Mens 50+ Multivitamin) tablet (7 sources) take 1 tablet by mouth once daily Multiple Vitamins-Minerals (Mens 50+ Multivitamin) tablet Take 1 tablet by mouth Daily Active NyQuil (1 source) Start: 023 NyQuil Jun, Active predniSONE 20 mg oral tablet (2 sources) Start: 023 take 1 tablet by mouth every twelve hours predniSONE 20 MG 1 tablet Orally 2 times a day for 5 day(s) Jun, Active tamsulosin hydrochloride 0.4 mg oral capsule (1 source) alpha-Adrenergi c Collette Start: 025 take 1 capsule by mouth twice daily tamsulosin 0.4 mg Cap 0.4 mg = 1 cap(s), Oral, BID, # 90 cap(s), Refills(s) 3, Pharmacy: [facility], 162, cm, 11/25/24 10:20:00 EDT, Height/Length Dosing, 102.9, kg, 11/25/24 10:20:00 EDT, Weight Dosing Start Date: 11/25/24 Status: Ordered Quantity: 90.0 Unit: cap(s) Repeat number: 4 Indications: Benign prostatic hyperplasia with lower urinary tract symptoms; Completed/Discontinued Medications Medication Drug Class(es) Dates Sig [...] Problem Date Documented Da te Episodic/Chronic Chronic kidney disease (4 sources) Chronic kidney disease stage 3A ; Translations: [Chronic kidney disease, stage 3a] Onset: 11-19-2024 11-19-2024 Chronic Chronic obstructive pulmonary disease and bronchiectasis (2 sources) Bronchitis, not specified as acute or chronic Episodic Coronary atherosclerosis and other heart disease (10 sources) Coronary arteriosclerosis; Translations: [Atherosclerotic heart disease of [place] coronary artery without angina pectoris] Onset: 10-19-2022 11-19-2024 Chronic Diabetes mellitus with complications (2 sources) Hyperglycemia due to type 2 diabetes mellitus; Translations: [Type 2 diabetes mellitus with hyperglycemia] 05-02-2024 Chronic Diabetes mellitus without complication (5 sources) Type 2 diabetes mellitus; Translations: [Type 2 diabetes mellitus without complications] Onset: 11-19-2024 11-19-2024 Chronic Disorders of lipid metabolism (6 sources) Hypertriglyceridemia ; Translations: [Pure hyperglyceridemia] Onset: 04-26-2024 11-20-2024 Chronic Essential hypertension (6 sources) Essential hypertension; Translations: [Essential (primary) hypertension] Onset: 10-19-2022 11-19-2024 Chronic Genitourinary symptoms and ill-defined conditions (3 sources) Microscopic hematuria; Translations: [Other microscopic hematuria] Onset: 11-20-2024 11-20-2024 Episodic Hyperplasia of prostate (6 sources) Benign prostatic hyperplasia; Translations: [Benign prostatic hyperplasia without lower urinary tract symptoms] Onset: 11-20-2024 11-20-2024 Chronic Hypertension with complications and secondary hypertension (2 sources) Hypertensive heart disease without heart failure; Translations: [Hypertensive heart disease without heart failure] Onset: 10-10-2024 Chronic Inflammatory conditions of male genital organs (2 sources) Prostatitis; Translations: [Inflammatory disease of prostate, unspecified] Onset: 11-25-2024 Episodic Other ear and sense organ disorders (2 sources) Sensorineural hearing loss, bilateral; Translations: [Sensorineural hearing loss, bilateral] 11-20-2024 Chronic Other ear and sense organ disorders (2 sources) Hearing loss; Translations: [Unspecified hearing loss, unspecified ear] Onset: 11-20-2024 11-20-2024 Chronic Other ear and sense organ disorders (1 source) Sudden hearing loss; Translations: [Sudden idiopathic hearing loss, bilateral] 11-19-2024 Episodic Other hereditary and degenerative nervous system conditions (11 sources) Impaired cognition; Translations: [Mild cognitive impairment, so stated] Onset: 10-18-2023 10-18-2023 Chronic Other nutritional; endocrine; and metabolic disorders (4 sources) Obesity caused by energy imbalance; Translations: [Morbid (severe) obesity due to excess calories] Onset: 11-19-2024 11-19-2024 Chronic Other nutritional; endocrine; and metabolic disorders (2 sources) Obese class II; Translations: [Class 2 obesity] Onset: 11-20-2024 11-20-2024 Chronic Other nutritional; endocrine; and metabolic disorders (2 sources) Lipoprotein deficiency disorder; Translations: [Lipoprotein deficiency] Onset: 11-20-2024 11-20-2024 Chronic Other screening for suspected conditions (not mental disorders or infectious disease) (3 sources) Raised prostate specific antigen; Translations: [Elevated prostate specific antigen [PSA]] Onset: 11-20-2024 11-20-2024 Episodic Other upper respiratory infections (2 sources) Acute pharyngitis, unspecified; Translations: [Acute upper respiratory infection, unspecified] Episodic Residual codes; unclassified (4 sources) Obstructive sleep apnea syndrome; Translations: [Obstructive sleep apnea (adult) (pediatric)] 05-02-2024 Chronic Unclassified (1 source) Asymptomatic microscopic hematuria 11-25-2024 Past or Other Problems Problem Classification Problem Date Documented Da te Episodic/Chronic Residual codes; unclassified (7 sources) Amnesia; Translations: [Other amnesia] Onset: 10-18-2023 10-18-2023 Episodic Unclassified (1 source) Acute cough R05.1 Viral infection (1 source) COVID-19 Results Test Name Value Interpretation Reference Range Facility 36on 11-29-2024 36 Phone call from ant ent who states he has a rash from [...] reaction to the Losartan. Patient states he doesn't understand why he is having reactions to bp medications, patient is wondering why he even has to take them he doesn't have high bp. Advised the patient he could take benadryl and use cortisone cream on the rash. Advised patient to seek medical treatment if his face swells or the rash becomes worse. Patient states he might just run down the road to and be seen. Patient schedule an appointment with you for 02/12 to discuss need for bp medications.Please advise. Normal [facility] Telephoneon 11-29-2024 Telephone [id number] Gregory Swain 1950 [facility] Provider Department [place] 11/29/2024 [id number] RASMUSSEN CARD [facility] Family History Problem Relation Age of Onset Pancreatitis Mother Supraventricular tachycardia Mother Atrial fibrillation Mother Family Status - Relation Status Age at Mother Father Normal [facility] Ambulatory Visit Summaryon 0 11-25-2024 Ambulatory Visit Summary Ambulatory Visit Summary GREGORY SWAIN :1950 Visit Date:11/25/2024 Ambulatory Visit Instructions Your Diagnosis Elevated PSA BPH with obstruction/lower urinary tract symptoms Asymptomatic microscopic hematuria Prostatitis Your Care Team Attending Physician - PILAR VILLEGAS, Raul Francis Primary Care Physician - MURIEL BEACH Referring Physician - MURIEL BEACH This Is Your Medications List Contact prescribing physician if questions or concerns atorvastatin (atorvastatin 80 mg Tab) clopidogrel (clopidogrel 75 mg Tab) hydrochlorothiazide (hydrochlorothiazide 25 mg Tab) losartan (losartan 25 mg Tab) metoprolol (Metoprolol tartrate 50 mg Tab) Procedures Performed History of left knee replacement, History of right total knee replacement. Discharge Vitals Heart Rate (Peripheral) 78 Respiratory Rate 16 Blood Pressure 136/80 Height 162 cm Height 64 in Weight 102.9 kg Weight 226.855 lb BMI 39.21 What to do next You Need to Schedule the Following Appointments Follow Up with PILAR VILLEGAS, Raul Francis, RICHIE When: Comments: 4 mos Where: [address] [place] [address] [place] [address] Medications What How Much When Instructions Unchanged atorvastatin (atorvastatin 80 mg Tab) 1 Tablets Contact prescribing physician if questions or concerns Unchanged clopidogrel (clopidogrel 75 mg Tab) Contact prescribing physician if questions or concerns Unchanged hydrochlorothiazide (hydrochlorothiazide 25 mg Tab) 1 Tablets Contact prescribing physician if questions or concerns Unchanged losartan (losartan 25 mg Tab) 1 Tablets Contact prescribing physician if questions or concerns Unchanged metoprolol (Metoprolol tartrate 50 mg Tab) 1 Tablets Contact prescribing physician if questions or concerns Allergies lisinopril sulfa drugs Problems Ongoing - Any problem that you are currently receiving treatment for. Asymptomatic microscopic hematuria BPH with obstruction/lower urinary tract symptoms Diabetes Prostatitis Patient Survey You may receive a survey via text or e-mail asking about your office visit. Please share your experience with us by completing your survey. We appreciate your feedback and thank you for choosing us for your care. Education Materials Prostatitis Prostatitis is swelling or inflammation of the prostate gland, also called the prostate. This gland is about 1.5 inches wide and 1 inch [...] other disorders of the urinary tract or reproductive tract. ??? Acute bacterial prostatitis. This type starts [...] rectum and below the scrotum (perineum). ??? (more content not included)... Normal [facility] Urology Office/Clinic Noteon 11-25-2024 Urology Office/Clinic Note Urology Office/Clinic Note Chief Complaint elevated PSA HPI Staff 74 yr old male referred by Muriel Beach for elevated PSA PSA 11/06/24 - 5.74 No other PSA's found on [facility] or [facility] Pt denies pain/burning denies visible blood denies flank pain pt complains of urgency, and frequency IPSS: 11 History of Present Illness Tests reviewed: reviewed UA, referral records, PSAs I have reviewed the previous health record information and history for this patient from external providers. I have reviewed and verified the staff HPI to be accurate for this encounter. Review of Systems PHQ Score Initial Depression Screen Score: 0 SCORE ROS - Provider Constitutional: denies weight loss, denies hot flashes. Eyes: denies eye problems. Gastrointestinal: denies nausea, denies vomiting. Cardiovascular: denies chest pain or angina. Integumentary: no dryness Musculoskeletal: denies musculoskeletal symptoms. ENMT: denies otolaryngeal symptoms. Respiratory: no shortness of breath. Heme/Lymph: denies easy bleeding tendency, denies easy bruising tendency. Psychiatric: no confusion, no anxiety. Genitourinary: See HPI. Physical Exam Vitals & Measurements HR: 78(Peripheral) RR: 16 BP: 136/80 HT: 162 cm HT: 64 in WT: 226.855 lb WT: 102.9 kg BMI: 39.21 General Appearance: alert, no distress, well nourished, well developed male. Genitourinary: normal scrotum, normal testes, normal urethra, normal epididymis, normal vas deferens/spermatic cord. Prostate: normal prostate, estimated weight 50 gms, no hard nodule observed. Assessment/Plan Gregory is a 73 yo M new pt referred by Muriel Beach NP for elevated PSA. Pt here with his today. 1. Elevated PSA (R97.20: Elevated prostate specific antigen [PSA]) PSA 09/26/11 - 4.8 & 11.7% 09/24/12 - 2.98 10/24/18 - 3.2 11/06/24 - 5.74 Hx of PSA fluctuation. Advised pt an elevated PSA could indicate prostate cancer, prostate infection, prostate inflammation without infection, prostate manipulation, or benign prostate enlargement (BPH). Discussed recent PSA rise can be attributed to poor urination. Will monitor level more closely. VANDANA: 50g, benign -PSA in 4 mos (pt will be on Dutasteride) 2. BPH with obstruction/lower urinary tract symptoms (N40.1: Benign prostatic hyperplasia with lower urinary tract symptoms) IPSS 11, 5 for weak stream. Increased urgency. States he was told in early that he had an enlarged prostate. No BPH meds. Educated pt on BPH pathophysiology. Discussed different treatment options for bladder outlet obstruction including oral medications, operative interventions such as TURP, versus less invasive options such as Rezum or Urolift, depending on prostate size and shape. Recommended starting with medication including alpha-collette and 5-GARO. Possible SEs discussed. -Start Tamsulosin 0.4 mg qd and Dutasteride 0.5 mg qd. Rx sent to [facility]. -F/u in 4 mos 3. 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 UA shows small blood. Denies ever experiencing gross hematuria. States he had a cystoscopy done ~5 yrs ago by urologist in [place], [place] for microscopic hematuria. Denies recent urologic imaging. Recommended pt to have this done. -Schedule CTU. Will call pt with results. -Cont sx monitoring and routine UAs. Pt knows to notify the office if he were to experience gross hematuria or clots. 4. Prostatitis (N41.9: Inflammatory disease of prostate, unspecified) Reports perineal pain/discomfort. The patient likely has prostatitis. He was advised about the different possible causes of bacterial and non-bacterial prostatitis. He needs to complete the course of prescribed antibiotics. He understands that the symptoms improve if he decreases his exercise and activity level. Anti-inflammatory medicines can also be helpful, as well as frequent ejaculations. Hot baths are also helpful in easing the discomfort. -Take doxycycline 100mg bid x14 days. Rx sent to [facility]. Follow-up With When Contact Information PILAR VILLEGAS, Raul Francis, URL [address] [place] [address] [place] [address] Additional Instructions: 4 mos w/ PSA Patient Education Prostatitis IAlbertina, personally scribed for Dr. Rehman on 11/25/2024 11:07:00. . Documentation recorded by the scribeAlbertina, accurately reflects the services(s) I performed and decisions made by me. Authenticated by Dr. Rehman on 11/25/2024 11:08:59. Problem List/Past Medical History Ongoing Asymptomatic microscopic hematuria BPH with obstruction/lower urinary tract symptoms Diabetes Prostatitis Historical No qualifying data Procedure/Surgical History History of left knee replacement, History of right total knee replacement. Medications atorvastatin 80 mg Tab, 80 mg= 1 tab(s) clopidogrel 75 mg Tab hydrochlorothiazide 25 mg Tab, 25 mg= 1 tab(s) losartan 25 mg Tab, 25 mg= 1 tab(s) (more content not included)... Normal [facility] Comment on above: Result Comment: Electronically Signed By : Raul REHMAN MD\.br\Date and Time Signed: 11/25/24 11:09 EDT\.br\Electronically Co-Signed By: Albertina Strong\.br\Date and Time Co-Signed: 11/25/24 11:07 EDT Auditory function testson Right Ear: Mild to moderate sensorineural hearing loss above 2K Hz. Left Ear: Mild to severe sensorineural hearing loss above 2K Hz. [facility] [employer] [facility] Orders Onlyon 10-29-2024 Orders Only [id number] Gregory Swain 1950 [facility] Provider Department Center 10/29/2024 [id number], HISTORICAL CARD [facility] Family History Problem Relation Age of Onset Pancreatitis Mother Supraventricular tachycardia Mother Atrial fibrillation Mother Family Status - Relation Status Age at Mother Father Normal [facility] Orders Onlyon 10-24-2024 Orders Only [id number] Gregory Swain 1950 [facility] Provider Department Center 10/24/2024 [id number], HISTORICAL BH CARD [facility] Family History Problem Relation Age of Onset Pancreatitis Mother Supraventricular tachycardia Mother Atrial fibrillation Mother Family Status - Relation Status Age at Mother Father Normal [facility] Office Visiton 10-10-2024 Follow-up visit [id number] Gregory Swain 1950 [facility] Provider Department Center 10/10/2024 Joe-BERNY LARSON CARD [facility] Family History Problem Relation Age of Onset Pancreatitis Mother Supraventricular tachycardia Mother Atrial fibrillation Mother Family Status - Relation Status Age at Mother Father Level of Service:12965 [place] OFFICE/OUTPATIENT ESTABLISHED MOD MDM 30 MIN Normal [facility] Office Visiton 04-26-2024 Follow-up visit [id number] Gregory Swain 1950 [facility] Provider Department Center 04/26/2024 [id number] CHIN CARD [facility] Family History Problem Relation Age of Onset Pancreatitis Mother Supraventricular tachycardia Mother Atrial fibrillation Mother Family Status - Relation Status Age at Mother Level of Service:21672 [place] OFFICE/OUTPATIENT ESTABLISHED LOW MDM 20 MIN Normal [facility] COVID Quick Testingon 2022 Result Negative [facility] Other Quick Strepon 09-18-2022 S. pyogenes Org specific cx Ql (Throat) Negative [facility] Other Quick Strep [employer] Other COVID + FLU Quick Testingon 06-07-2022 SARS-CoV-2 (COVID-19) RNA LEANN+probe Ql (Unsp spec) Positive [employer] Other COVID + FLU Quick Testing Negative [employer] Other Vital Signs Date Time Vital Sign Value Performing Clinician Facility 11-20-2024 09:43-0400 Body height 162.6 cm Jaqueline Thacker MD Work Phone: [facility] 11-20-2024 09:43-0400 Body mass index (BMI) [Ratio] 39.48 kg/m2 Jaqueline Thacker MD Work Phone: [facility] 11-20-2024 09:43-0400 Body weight 104.33 kg Jaqueline Thacker MD Work Phone: [facility] 11-20-2024 09:43-0400 Diastolic blood pressure 63 mm[Hg] Jaqueline Thacker MD Work Phone: [facility] 11-20-2024 09:43-0400 Heart rate 70 /min Jaqueline Thacker MD Work Phone: [facility] 11-20-2024 09:43-0400 Systolic blood pressure 112 mm[Hg] Jaqueline Thacker MD Work Phone: [facility] 11-12-2024 13:00-0400 Body height 162.56 cm Faisal Beach HIGH SPEED WARPER TENDER-C Work Phone: [facility] 11-12-2024 13:00-0400 Body mass index (BMI) [Ratio] 39.1 kg/m2 Faisal Beach HIGH SPEED WARPER TENDER-C Work Phone: [facility] 11-12-2024 13:00-0400 Body weight 103.41 kg Faisal Beach HIGH SPEED WARPER TENDER-C Work Phone: [facility] 11-12-2024 13:00-0400 Diastolic blood pressure 88 mm[Hg] Faisal Beach HIGH SPEED WARPER TENDER-C Work Phone: [facility] 11-12-2024 13:00-0400 Heart rate 58 /min Faisal Beach HIGH SPEED WARPER TENDER-C Work Phone: [facility] 11-12-2024 13:00-0400 Respiratory rate 16 /min Faisal Beach HIGH SPEED WARPER TENDER-C Work Phone: [facility] 11-12-2024 13:00-0400 SaO2% (BldA) [Mass fraction] 98 % Faisal Beach HIGH SPEED WARPER TENDER-C Work Phone: [facility] 11-12-2024 13:00-0400 Systolic blood pressure 130 mm[Hg] Faisal Beach HIGH SPEED WARPER TENDER-C Work Phone: [facility] 05-02-2024 15:25-0500 Body mass index (BMI) [Ratio] 39.48 kg/m2 Michelle Dillard HIGH SPEED WARPER TENDER Work Phone: [facility] 05-02-2024 15:25-0500 Body weight 104.33 kg Michelle Dillard HIGH SPEED WARPER TENDER Work Phone: [facility] 05-02-2024 15:25-0500 Diastolic blood pressure 72 mm[Hg] Michelle Dillard HIGH SPEED WARPER TENDER Work Phone: [facility] 05-02-2024 15:25-0500 Heart rate 61 /min Michelle Dillard HIGH SPEED WARPER TENDER Work Phone: [facility] 05-02-2024 15:25-0500 SaO2% (BldA) [Mass fraction] 98 % Michelle Dillard HIGH SPEED WARPER TENDER Work Phone: [facility] 05-02-2024 15:25-0500 Systolic blood pressure 120 mm[Hg] Michelle Dillard HIGH SPEED WARPER TENDER Work Phone: [facility] 09-18-2022 09:00-0400 Body height 162.56 cm Janna Blankenship Other [employer] Other 09-18-2022 09:00-0400 Body mass index (BMI) [Ratio] 37.07 kg/m2 Janna Blankenship Other [employer] Other 09-18-2022 09:00-0400 Body temperature 98.4 [degF] Janna Blankenship Other [facility] Other 09-18-2022 09:00-0400 Body weight 97.98 kg Janna Blankenship Other [employer] Other 09-18-2022 09:00-0400 Diastolic blood pressure 70 mm[Hg] Janna Blankenship Other [employer] Other 09-18-2022 09:00-0400 Respiratory rate 18 /min Janna Blankenship Other [employer] Other 09-18-2022 09:00-0400 SaO2% (BldA) [Mass fraction] 97 % Janna Blankenship Other [employer] Other 09-18-2022 09:00-0400 Systolic blood pressure 118 mm[Hg] Janna Blankenship Other [employer] Other 06-20-2022 10:10-0400 Body height 162.56 cm Malia Zaldivar Other [employer] Other 06-20-2022 10:10-0400 Body temperature 97.3 [degF] Malia Kayley Other [employer] Other 06-20-2022 10:10-0400 Respiratory rate 18 /min Malia Zaldivar Other [employer] Other 06-20-2022 10:10-0400 SaO2% (BldA) [Mass fraction] 97 % Malia Hensonmond Other [employer] Other 06-07-2022 09:00-0500 Body height 162.56 cm Malia Zaldivar Other [employer] Other 06-07-2022 09:00-0500 Body mass index (BMI) [Ratio] 38.45 kg/m2 Malia Zaldivar Other [facility] Other 06-07-2022 09:00-0500 Body temperature 102 [degF] Malia Zaldivar Other [facility] Other 06-07-2022 09:00-0500 Body weight 101.61 kg Malia Zaldivar Other [employer] Other 06-07-2022 09:00-0500 SaO2% (BldA) [Mass fraction] 96 % Malia Kayley Other [employer] Other Encounters Encounter Date Encounter Type Care Provider Facility Start: 03-24-2025 ambulatory Raul Lorenzo ty:[facility] Start: 03-17-2025 ambulatory Raul Lorenzo ty:[facility] [place] Start: 11-25-2024 End: 11-25-2024 ambulatory Raul REHMAN Facility:[facility] Start: 11-25-2024 End: 11-25-2024 Patient encounter procedure Raul Tito REHMAN [facility] Start: 11-20-2024 End: 11-20-2024 Office outpatient new 30 minutes Jaqueline Thacker MD Work Phone: [facility] [place] [facility] Comment on above: Sensorineural hearin g loss (SNHL), bilateral (Primary Dx) Start: 11-20-2024 End: 11-20-2024 ambulatory JAQUELINE THACKER Not Available Start: 11-19-2024 End: 11-19-2024 Clinical Support Olena Dobson CCC-A Work Phone: [facility] Comment on above: Sudden hearing loss of both ears (Primary Dx) Start: 11-19-2024 End: 11-19-2024 Bamboo flowsheet Olena Dobson CCC-A Work Phone: [facility] Start: 11-19-2024 End: 11-19-2024 Bamboo flowsheet Olena Dobson CCC-A Work Phone: [facility] Start: 11-12-2024 End: 11-12-2024 ambulatory Faisal Beach HIGH SPEED WARPER TENDER-C Work Phone: [facility] Work Phone: Start: 11-12-2024 End: 11-12-2024 Patient encounter procedure Michelle Dillard EVENTS ASSISTANT-SUPERVISOR POST WAVE-C -[facility] [place] Work Phone: Start: 11-11-2024 ambulatory [place] Facility :[facility] [place] Start: 10-10-2024 End: 10-10-2024 ambulatory AB [facility] Start: 05-02-2024 End: 05-02-2024 Office outpatient visit 15 minutes Michelle Dillard HIGH SPEED WARPER TENDER Work Phone: [facility] [place] Comment on above: Mild cognitive impai rment (Primary Dx); ALEXYS on CPAP; Type 2 diabetes mellitus with hyperglycemia, without long-term current use of insulin ([facility]) Start: 05-02-2024 End: 05-02-2024 ambulatory MICHELLE DILLARD Not Available Start: 05-02-2024 End: 05-02-2024 Bamboo flowsheet Michelle Holden HIGH SPEED WARPER TENDER Work Phone: [facility] Start: 05-02-2024 End: 05-02-2024 Bamboo flowsheet Michelle Holden HIGH SPEED WARPER TENDER Work Phone: [facility] Start: 04-26-2024 End: 04-26-2024 [facility] Start: 09-18-2022 End: 09-18-2022 ambulatory Janna Blankenship Other [employer] Other Start: 09-18-2022 Office outpatient vi sit 15 minutes Janna Blankenship [facility] [place] Start: 06-20-2022 End: 06-20-2022 ambulatory Maliashannan Zaldivar Other [employer] Other Start: 06-20-2022 Office outpatient vi sit 15 minutes Malia Kayley [facility] [place] Start: 06-07-2022 End: 06-07-2022 ambulatory Amlia Kayley Other [employer] Other Start: 06-07-2022 Office outpatient ne w 20 minutes Malia Kayley [facility] [place] Procedures Date Procedure Procedure Detail Performing Clinician Start: 11-19-2024 AUDITORY FUNCTION TESTS Olena Dobson [facility] Work Phone: History of arthropla sty of left knee Raul REHMAN History of right tot al knee replacement Raul REHMAN Plan of Treatment Date Care Activity Detail Author Start: 12-02-2024 Influenza vaccination Influenza Vacc ine (#1) [facility] Start: 11-20-2024 End: 11-20-2024 Patient encounter procedure 11/20/2024 10:00 AM EDT Office Visit [facility] [address] [facility] [address] [place] [address] Jaqueline Thacker MD [address] [facility] [address] [place] [address] [facility] Start: 11-19-2024 End: 11-19-2024 Clinical Support 11/19/2024 3:00 PM EDT Clinical Support [facility] [address] [place] [id number] Olena Dobson, [facility] [address] [facility] [place] [address] [facility]rived [facility] Comment on above: Arrived Start: 11-12-2024 End: 11-12-2024 Patient encounter procedure 11/12/2024 1:00 PM EDT Office Visit [facility] [address] [place] [address], [place] [phone] Michelle Dillard NP [address] [place] [address] [facility] Start: 05-02-2024 End: 05-02-2024 Patient encounter procedure 05/02/2024 4:00 PM EST Office Visit [facility] [address] [place] [address] Michelle Dillard NP [address] [place] [address] Arrived [facility] Comment on above: Arrived Start: 2013 Pneumococcal Vaccine : 65+ Years (1 of 1 - PCV) Pneumococcal Vaccine: 65+ Years (1 of 1 - PCV) [facility] Start: 1998 Pneumococcal Vaccine : 65+ Years (1 of 1 - PCV) Pneumococcal Vaccine: 65+ Years (1 of 1 - PCV) [facility] Start: 1950 Screening for malignant neoplasm of colon [facility] Immunizations Immunization Date Immunization Notes Care Provider Cristhian edwin 02-23-2024 influenza virus vaccine, unspecified formulation Olena Dobson [facility] Work Phone: [facility] Payers Date Payer Category Payer Medicare [id number] 2022 Medicare (Managed Care) [employer] M EDICARE ADVANTAGE Member Subscriber Plan / Payer (Effective 2022-Present) Name: Gregory Swain Relation to Subscriber: Self Name: Gregory Swain Payer ID: [id number] (NAIC) Type: Not on file Address: [place] [id number] 2022 Medicare [id number] 1948 Unknown [id number] 1948 Unknown [id number] 1948 Unknown [id number] 1948 Unknown [id number] 1948 Unknown [id number] 1948 Unknown [id number] Social History Date Type Detail Facility Start: 10-23-2023 End: 11-20-[address] [facility] Start: 10-18-2023 End: 11-25-2024 Tobacco smoking status NHIS Never smoked tobacco [facility] Start: 10-18-2023 Tobacco use and exposure Smoke less tobacco non-user [facility] Start: 10-23-2023 End: 11-20-2024 Alcoholic beverage intake Lifetime non-drinker (finding) [facility] Start: 10-23-2023 End: 11-20-2024 History of Social function [facility] Start: 1950 Sex assigned at Not on file [facility] Work Phone: Sex Male (finding) [facility] Start: 1950 Sex Assigned At Male F [facility] Tobacco smoking status Never [facility] Sexual Orientation [facility] Clinical Notes 06-01-2022 to 11-29-2024 Jaqueline Thacker MD - 11/20/2024 10:00 AM Juan Diego Dobson CCC-Luz - 11/19/2024 3:00 PM Eusebio Dillard NP - 05/02/2024 4:00 PM EST Note Date & Type Note Facility 11-29-2024 Note Spoke to patient, Ad vised patient of Dr. Batista recommendations. Patient verbalized understanding and agreed with plan of care [facility] 11-25-2024 Hospital Discharge instructions Patient Education 11/25/2024 11:03:51 Prostatitis Prostatitis Prostatitis is swelling or inflammation of the prostate gland, also called the prostate. This gland is about 1.5 inches wide and 1 inch high, and it is involved in making semen. The prostate is located below a man's bladder, in front of the rectum. There are four types of prostatitis: Chronic prostatitis (CP), also called chronic pelvic pain syndrome (CPPS). This is the most common type of prostatitis. It is associated with increased muscle tone in the area between the hip bones (pelvic area), around the prostate. This type is also known as a pelvic floor disorder. Chronic bacterial prostatitis. This type usually results from an acute bacterial infection in the prostate gland that keeps coming back or has not been treated properly. The symptoms are less severe than those caused by acute bacterial prostatitis, which lasts a shorter time. Asymptomatic inflammatory prostatitis. This type does not have symptoms and does not need treatment. This is diagnosed when tests are done for other disorders of the urinary tract or reproductive tract. Acute bacterial prostatitis. This type starts quickly and results from an acute bacterial infection in the prostate gland. It is usually associated with a bladder infection, high fever, and chills. This is the least common type of prostatitis. What are the causes? Bacterial prostatitis is caused by an infection from bacteria. Chronic nonbacterial prostatitis may be caused by: Factors related to the nervous system. This system includes thebrain, spinal cord, and nerves. An autoimmune response. This happens when the body's disease-fighting system attacks healthy tissue in the body by mistake. Psychological factors. These have to do with how the mind works. The causes of the other types of prostatitis are usually not known. What are the signs or symptoms? Symptoms of this condition depend on the type of prostatitis you have. Acute bacterial prostatitis Symptoms may include: Pain or burning during urination. Frequent and sudden urges to urinate. Trouble starting to urinate. Fever. Chills. Pain in your muscles or joints, lower back, or lower abdomen. Other types of prostatitis Symptoms may include: Sudden urges to urinate, or urinating often. Trouble starting to urinate. Weak urine stream. Dribbling after urination. Discharge coming from the penis. Pain in the testicles, the penis, or the tip of the penis. Pain in the area in front of the rectum and below the scrotum (perineum). Pain when ejaculating. How is this diagnosed? This condition may be diagnosed based on: A physical and medical exam. A digital rectal exam. For this, the health care provider may use a finger to feel the prostate. A urine test to check for bacteria. A semen sample or blood tests. Ultrasound. Urodynamic tests to check how your body handles urine. Cystoscopy to look inside your bladder or inside the part of your body that drains urine from the bladder (urethra). How is this treated? Treatment for this condition depends on the type of prostatitis. Treatment may involve: Medicines to relieve pain or inflammation, or to help relax your muscles. Physical therapy. Heat therapy. Biofeedback. These techniques help you control certain body functions. Relaxation exercises. Antibiotic medicine, if your condition is caused by bacteria. Sitz baths. These warm water baths help to relax your pelvic floor muscles, which helps to relieve pressure on the prostate. Follow these instructions at home: Medicines Take rozm-nmn-hkwmrsx and prescription medicines only as told by your health care provider. If you were prescribed an antibiotic medicine, take it as told by your health care provider. Do not stop using the antibiotic even if you start to feel better. Managing pain and swelling Take sitz baths as directed by your health care provider. For a sitz bath, sit in warm water that is deep enough to cover your hips and buttocks. If directed, apply heat to the affected area as often as told by your health care provider. Use the heat source that your health care provider recommends, such as a moist heat pack or a heating pad. ?Place a towel between your skin and the heat source. ?Leave the heat on for 20 30 minutes. ?Remove the heat if your skin turns bright red. This is especially important if you are unable to feel pain, heat, or cold. You may have a greater risk of getting burned. General instructions Do exercises as told by your health care provider, if you were prescribed physical therapy, biofeedback, or relaxation exercises. Keep all follow-up visits as told by your health care provider. This is important. Where to find more information National [place] of Diabetes and Digestive and Kidney Diseases: https://www.niddk.nih.gov Contact a health care provider if: Your symptoms get worse. You have a fever. Get help right away if: You have chills. You feel light-headed or feel like you may faint. You cannot urinate. You have blood or blood clots in your urine. Summary Prostatitis is swelling or inflammation of the prostate gland. Treatment for this condition depends on the type of prostatitis. Take tfnb-vrj-isjtxwq and prescription medicines only as told by your health care provider. Get help right away of you have chills, feel light-headed, feel like you may faint, cannot urinate, or have blood or blood clots in your urine. This information is not intended to replace advice given to you by your health care provider. Make sure you discuss any questions you have with your health care provider. Document Revised: 02/02/2023 Document Reviewed: 02/02/2023 [employer] Patient Education 2023 [employer]. Follow Up Care 11/12/2024 09:10:12 With:PILAR VILLEGAS, Raul Francis, URL Address: [address] [place] [address] When: Unknown Comments:4 mos w/ PSA [facility] 11-25-2024 Note Patient Education Infectious Disease Prostatitis Prostatitis is swelling or inflammation of the prostate gland, also called the prostate. This gland is about 1.5 inches wide and 1 inch [...] other disorders of the urinary tract or reproductive tract. ??? Acute bacterial prostatitis. This type starts [...] these instructions at home: Medicines ??? Take ohjw-ujz-mmnxcae and prescription medicines only as told by your health care provider. ??? If you were prescribed an antibiotic medicine, take it as told by your health care provider. Do not stop using the antibiotic even if you start to feel better. Managing pain and swelling ??? Take sitz baths as directed by your health care provider. For a sitz bath, sit in warm water that is deep enough to cover your hips and buttocks. ??? If directed, apply heat to the affected area as often as told by your health care provider. Use the heat source that your health care provider recommends, such as a moist heat pack or a heating pad. ? Place a towel between your skin and the heat source. ? Leave the heat on for 20?30 minutes. ? Remove the heat if your skin turns [...] your health care provider. This is important. (more content not included)... [facility] 11-20-2024 History of Present illness Narrative Subjective Patient ID: Gregory Swain is a 74 y.o. male who presents for Hearing Loss (Audio 11/19/24) Pt reports he was prescribed lisinopril the last week of October and developed francis severe to profound hearing loss within 3-4 days. Med stopped and PCP put pt on prednisone 50mg daily for 6 days. Pt feels hearing has returned to baseline. 11/19 audio shows francis HFSNHL with slight asymmetry on the left. RT disc 100% and LT disc 96%. Review of Systems All other systems reviewed and are negative. Family History Problem Relation Name Age of Onset Hypertension Mother Stroke Mother Cancer Father Active Ambulatory Problems Diagnosis Date Noted Memory loss 10/18/2023 Mild cognitive impairment 10/18/2023 Chronic kidney disease, stage 3a (CMS-HCC) 11/19/2024 Coronary artery disease involving [place] heart without angina pectoris 10/19/2022 Morbid (severe) obesity due to excess calories ([facility]) 11/19/2024 Primary hypertension 10/19/2022 Type 2 diabetes [...] and face appears atraumatic; Ear Ear comments: Francis ears normal Nose External Nose: nares patent [...] loss (SNHL), bilateral Pt has a baseline francis SNHL and had acute loss after starting an ACEI that has resolved. Repeat audio in 6 mo and F/U. MRI IAC if the left has deteriorated. Does not need HENDERSON. documented in this encounter [facility] 11-19-2024 History of Present illness Narrative History: Pt was referred to ENT because of hearing loss. Pt had adverse reaction to lisinopril 3 weeks ago. Pt started medication on a Monday. After 3 days pt had severe diarrhea and started losing his hearing. He lost all of his hearing over the course of a few days. He stopped the lisinopril on Monday and slowly regained his hearing over the course of 2 weeks. Symptoms were worse in the left ear and the left hearing took longer to recover. Pt also reported excessive wax in the right ear that was removed. The left ear canal was clear. 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 Procedure: Cerumen removed from right ear under direct otoscopy using a curette without incident. TM intact post cleaning. Pure Tone Audiometry Right Ear: Mild to moderate sensorineural hearing loss above 2K Hz. Left Ear: Mild to severe sensorineural hearing loss above 2K Hz. 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 This was abnormal. This led [...] should problems arise Berny Larson MD, MPH, [facility], [facility], [facility] Interventional Cardiology Pager Email: [email or web address] Berny Larson MD, MPH, [facility], [facility], [facility] Interventional Cardiology Pager Email: [email or web address] [[email or web address]] Family History Problem Relation Name Age [...] morning and at bedtime., Disp: , Rfl: [facility] 05-02-2024 History of Present illness Narrative Images from the original note [...] going back to school to learn computer-aided [employer] 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 His appetite and mood are good. He denies feelings of depression or anxiety. He denies any changes in his sleep. He admits he has not been utilizing his CPAP every night due to his mask not fitting properly and previous electrical issues. The electrical issues are now resolved. He is working with his curriculum advisory teacher to possibly obtain a new CPAP mask. [...] DM type 2 (diabetes mellitus, type 2) ([facility]) Hypertension ([facility]) ALEXYS (obstructive sleep apnea) Past [...] wrist extensors , wrist flexor , and gamemaster strength 5/5. LUE strength deltoid , biceps , triceps , wrist extensors , wrist flexor , and gamemaster strength 5/5. RLE strength iliopsoas, quadriceps, tibialis [...] reflex 0. LLE knee reflex 0. Coordination: Cnpdzm-ot-zcli testing normal. Rapid alternating movements are normal. Gait: Normal. Review and summary of old records: MOCA score at [facility] on 05/02/24: with 4/5 recall. Vitamin B12 level on 04/14/23: 297. Labs on 03/11/23: GFR 54 (low). TSH on 09/20/22: 2.08. MRI of the brain w and w/o contrast at [facility] on 03/31/23: No acute intracranial process. Mild diffuse parenchymal volume loss. Macario cognitive assessment (MOCA) score at [facility] 03/08/23: 26/30. Assessment/Plan Diagnoses and all orders for this [...] hyperglycemia, without long-term current use of insulin ([facility]) PLAN: - Follow up closely with primary care provider for adequate blood glucose management Diagnosis and treatment options discussed in detail. All questions answered. The patient verbalizes understanding and is agreeable to the plan. Discussion in layman's terms. Follow up in the office within 6 months; sooner if needed for new or worsening symptoms. Michelle Dillard NP [facility] documented in this encounter [facility] 04-26-2024 Note Cardiology Clinic No te HPI: [...] at this time. He states that his curriculum advisory teacher told him he should be on lifelong [...] as needed Fahad Chin MD Interventional Cardiology [facility] 09-18-2022 Evaluation note Encounter Date Diagnosis Assessment [...] 7 days, sooner if significantly worsening symptoms. [facility] Other 03-20-2023 Evaluation note* Encounter Date Diagnosis Assessment Notes Treatment Notes Treatment Clinical Notes Jun, Bronchitis (ICD-10 - J40) Acute [...] the ER for worsening symptoms or concerns [facility] Other 03-07-2023 Evaluation note* Encounter Date Diagnosis Assessment Notes Treatment Notes Treatment Clinical Notes Jun, COVID-19 (ICD-10 - U07.1) Discharge [...] J40) Jun, Acute cough (ICD-10 - R05.1) [facility] Other 03-01-2023 History general Narrative - Reported* Type Description Date Medical History hypertension Medical History high cholesterol Medical History COVID 06/2022 Surgical History right and left knee replacement Surgical History 2 stents Hospitalization History see surgical hx [facility] Other Evaluation + Plan note Future Appointments Appointment Date:03/17/2025 08:45:00 AM Scheduled Provider: Location:[facility] Appointment Type:URO Nurse Visit Appointment Date:03/24/2025 09:15:00 AM Scheduled Provider:Raul REHMAN MD Location:[facility] Appointment Type:URO Office Visit Diagnostic Tests Pending * Creatinine 11/25/24 Future Scheduled Tests Laboratory* PSA Free & Total 03/27/25 [facility] evaluation note* Diagnosis Mild cognitive impairment- Primary Mild cognitive impairment, so stated ALEXYS on CPAP Type 2 diabetes mellitus with hyperglycemia, without long-term current use of insulin ([facility]) documented in this encounter [facility] HealthcareEvaluation note* Diagnosis Onset Date Resolution Status Admit Date MCI (mild cognitive impairment) chronic November 12 12:51pm Obstructive sleep apnea chronic A ugust 2024 12:51pm [facility] Work Phone: Evaluation note* Diagnosis Sudden hearing loss of both ears- Primary documented in this encounter [facility] HealthcareEvaluation note* Diagnosis Sensorineural hearing loss (SNHL), bilateral- Primary documented in this encounter [facility] HealthcareHistory general Narrative - Reported* Type Description Date Medical History hypertension Medical History high cholesterol Surgical History right and left knee replacement Surgical History 2 stents Hospitalization History see surgical hx [employer] Other Hospital course Narrative No data available for this section [facility] progress note No data available for this section [facility] reason for referral (narrative)No reason for referral [facility] Phone: Chief Complaint and Reason for Visit Chief Complaint Admit Date 6 month follow up November 12, 2024 12 :51pm Reason for Visit Admit Date MCI (mild cognitive impairment) November 012024 12:51pm Obstructive sleep apnea November 12 12:51pm Family History No Family History Records Found Relationship Condition Age at Onset Recorded Date/T noé father Unknown Malignant neoplasm Unknown mother Unknown Hypertension Unknown Cerebrovascular accident (CVA) Unknown Advance Directives No Advanced Directives Records Found Advance Directive Response Recorded Date/ Time Advance Directives No November 12, 2024 12:49pm Summary Purpose Additional Source Comments REASON FOR VISIT (unrecogniz ed section and content) Reason Comments Memory Loss Reason Comments Hearing Loss Audio 11/19/24 Care Teams (unrecognized sec tion and content) Fish Roe Technician Relationship Specialty Start Date End Date Muriel Beach MD [address] [place] [address] PCP - General Radio Disc Jockey 05/02/24 Cm Cho DO [address] [address] Referring Physician Neurology 05/02/24 Fish Roe Technician Relationship Specialty Start Date End Date Muriel Beach MD [address], [place] [id number] PCP - General Radio Disc Jockey 05/02/24 Cm Cho DO [address] [address] Referring Physician Neurology 05/02/24 Team Status: Active Member Role Status Dates FRAN Rodriguez Primary Care Provider Active Team Status: Inactive Member Role Status Dates DIVYA GoncalvesP-C Attending Provider Active Start: November 12, 2024 End: November 12, 2024 FRAN Rodriguez Primary Care Provider Active Start: November 12, 2024 End: November 12, 2024 Fish Roe Technician Relationship Specialty Start Date End Date Muriel Beach MD [address] [place], [place] [phone] PCP - General Radio Disc Jockey 05/02/24 Cm Cho DO [address] [address] Referring Physician Neurology 05/02/24 Fish Roe Technician Relationship Specialty Start Date End Date Muriel Beach MD [address] [place] [address] PCP - General Radio Disc Jockey 05/02/24 Cm Cho DO [address] [address] Referring Physician Neurology 05/02/24 Fish Roe Technician Relationship Specialty Start Date End Date Muriel Beach MD [address] [place] [place] [address] PCP - General Radio Disc Jockey 05/02/24 Cm Cho DO [address] [address] Referring Physician Neurology 05/02/24 Goals (unrecognized section and content) Goals may be documented in a n alternate section (unrecognized sect ion and content) No Status Records FoundNo Status Records FoundNo Status Records Found INFORMATION SOURCE (unrecogn ized section and content) DATE CREATED AUTHOR 11/21/2024 [facility] DATE CREATED AUTHOR AUTHOR'S ORGANIZ ATION 11/27/2024 [facility] DATE CREATED AUTHOR AUTHOR'S ORGANIZ ATION 12/01/2024 [facility] FOR RECORDS PERTAINING TO PATIENTS WHO [...] BE BASED ON THE PRIMARY CLINICAL RECORDS. [facility]. provides no warranty or guarantee of the accuracy or completeness of information in this document.
--- NOTE | 2024-12-04 08:17 | CT_ITS ---
The [address] [address] Patient Name: GREGORY HENDERSON MRN: [id number] date: 1950 Sex: M Assigned Patient Location: LAB Current Patient Location: LAB Accession/Order Number: [id number] Exam Date: 12/04/2024 08:30 Report Date: 12/04/2024 09:40 At the request of: SHAHEED QUEZADA MD Procedure: CT abdomen pelvis wo/w con CT ABDOMEN AND PELVIS WITHOUT AND WITH INTRAVENOUS CONTRAST COMPARISON: None CLINICAL DATA: Microscopic hematuria. Prostate enlargement. Spiral images were obtained through the abdomen and pelvis before and after intravenous administration of [address] exam was performed using one or more following dose reduction techniques: Automated exposure control, adjustment of the mA and/or kV according to patient size, or use of iterative reconstruction technique. Limited cuts through the lung bases show a right lower lobe pulmonary nodule measuring 7 - 8 mm in size. The kidneys are within normal limits for size, position and contour. Precontrast, there is a hyperdense cortical nodule at the mid to lower pole on the left measuring 13 mm in size. This might be a hemorrhagic cyst. No renal, ureteral or bladder stones are seen. Following contrast administration, the renal nephrograms are symmetric. No hydronephrosis is noted. There are additional hypodensities measuring up to 1 cm in size at the mid and upper pole of the left kidney. These might be cysts. The ureters are segmentally opacified. There is an enlarged prostate with mass effect at the bladder trigone. The urinary bladder is poorly distended and the wall appears thickened. There are no obvious intraluminal abnormalities. No calcified gallstones are noted. No intrahepatic masses are seen. There may be mild fatty infiltration of the liver. The spleen, pancreas and adrenal glands show no acute findings. The abdominal aorta is normal caliber. There are small lymph nodes. There is also hazy density at the root of the mesentery. This may be mesenteric panniculitis. No ascites is seen. The small bowel loops are not distended. Mild stool is visualized along the colon. There are scattered colonic diverticula. There is slight levoscoliotic curvature. There are also multilevel degenerative changes at the spine with associated stenosis. Images through the pelvis show no dilated small bowel. No appendiceal inflammation is seen. There is mild stool at the distal colon. Additional colonic diverticula are visualized, without associated active inflammation. No ascites is seen. There are mildly patulous inguinal rings containing fat. There are benign-appearing distal external iliac and inguinal lymph nodes. There are degenerative changes at the SI joints, greater on the left. There is also minor degenerative change at the hips. CT/CT abdomen pelvis wo/w con IMPRESSION: INCIDENTAL RIGHT LOWER LOBE PULMONARY NODULE. THERE IS NO HISTORY REGARDING TOBACCO USE OR PRIOR CHEST IMAGING FOR CORRELATION. UNLESS THERE IS PRIOR OUTSIDE IMAGING SHOWING STABILITY, FOLLOW-UP IS SUGGESTED ACCORDING TO [employer] GUIDELINES. NO OBSTRUCTIVE UROPATHY OR STONE DISEASE. HYPER AND HYPODENSE LEFT RENAL NODULARITY. THIS MAY BE SIMPLE AND HEMORRHAGIC CYSTS. ULTRASOUND COULD BE CONSIDERED FOR CONFIRMATION. UNDER DISTENDED URINARY BLADDER WITH APPARENT WALL THICKENING. PROSTATE HYPERTROPHY. 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 DIVERTICULOSIS. Impression dictated by: Zoila Betancourt M.D. 12/04/2024 9:40 AM Dictation Location: [facility] Electronically authenticated by: [id number] Y Date: 12/04/2024 09:40
[2024-12-04 08:20] LABS: Estimated GFR (African America >60 (>=60 mL/min/1.73m^2); Estimated GFR (Non-African Ame 54 (>=60 mL/min/1.73m^2)
== END 2024-12-04 08:03 | disposition home or self-care (01) ==
LOC: LAB 08:02
PROVIDERS: Visit Provider Urology
DX: R31.21 Asymptomatic microscopic hematuria (principal); R91.1 Solitary pulmonary nodule; K57.90 Diverticulosis of intestine, part unspecified, without perforation or abscess without bleeding
CPT/HCPCS: 36415; 74178; 82565; Q9967

== ENCOUNTER 2024-12-10 08:00 | Outpatient (OUT) | payer MEDICARE, SELFPAY ==
--- OUTSIDE RECORDS SUMMARY | 2024-10-29 05:00 | XMS_ITS ---
Author Organization [facility] vices Address [address] [place], [place] [id number] Care Team Providers Care Sexual Assault Counselor Name Role Phone Muriel Beach Primary Care Provider REASON FOR VISIT ear issues, having trouble hearing Social History Sex Assigned At : Social History Observation Description Sex Assigned At Male Encounters Encounter Location Date Provider Diagnosis Main [address] [place], [place] [id number] 10/29/2024 Muriel Beach Plan Of Treatment Next Appt Details Provider Name:Muriel Beach , 02/06/2025 08:30:00 AM, [address] [place], [place], [id number], Progress Notes * Stan SWAIN RDOB:1950 (74 yo M)Acc No.[id number]:10/29/2024 Medical Note Patient: Stan THOMAS Provider: Luz Beach :1950 A ge:74 Y S ex:Male Date:10/29/2024 Address:[address] [place], [place] [id number] Subjective: * Chief Complaints: * 1 . Ear issues, having trouble hearing. * Medical History: Objective: * Vitals: Assessment: Plan: * Treatment: * Billing Information: * Visit Code: * Procedure Codes: * Electronic signature of JHON Angel sa on 12/10/2024 at 08:01 AM EDT Sign off status: Pending * Provider: Luz Beach Date: 0 10/29/2024 Generated for Ke saez/Saúl/Liz on: 0 12/10/2024 08:01 AM EDT
--- OUTSIDE RECORDS SUMMARY | 2024-12-05 06:17 | XMS_ITS ---
Author Organization Counts Include [facility] vices Address [address] [place], [place] [id number] Care Team Providers Care Senior Data Warehouse Developer Name Role Phone Muriel Beach Primary Care Provider REASON FOR VISIT CT Abdomen Incidental Finding Social History Sex Assigned At : Social History Observation Description Sex Assigned At Male Problems Problem Type SNOMED Code ICD Code Onset Dates Problem Status W/U Status Risk Notes Problem Solitary pulmonary nodule (956027070) Right lower lobe pulmonary nodule (R91.1) Active confirmed Encounters Encounter Location Date Provider Diagnosis Main [address] [place], [place] [id number] 12/05/2024 Muriel Beach Right lower lobe pulmonary nodule R91.1 Assessments Encounter Date Diagnosis (ICD Code) Assessment Notes Treatment Notes Treatment Clinical Notes Section Notes 12/05/2024 Right lower lobe pulmonary nodule (ICD-10 - R91.1) Plan Of Treatment Pending Test Test Name Order Date CHEST WO CONT 12/05/2024 Next Appt Details Provider Name:Muriel Beach , 02/06/2025 08:30:00 AM, [address] [place], [id number], Progress Notes * Stan SWAIN RDOB:1950 (74 yo M)Acc No.[id number]:12/05/2024 Patient: Stan THOMAS :1950 A ge:74 Y S ex:Male Address:[address] [place] [id number] Subjective: * Chief Complaints: * C T Abdomen Incidental Finding * Medical History: * Surgical History: * Hospitalization/Major Diagno stic Procedure: * Medications: Objective: * Vitals: * Physical Examination: Assessment: * Assessment: 1. R ight lower lobe pulmonary nodule - R91.1 (Primary) Plan: * Treatment: * * Procedure Codes: * true * Date: Generated for Ke saez/Saúl/Liz on: 0 12/10/2024 08:01 AM EDT
--- OUTSIDE RECORDS SUMMARY | 2024-12-10 08:01 | XMS_ITS | Encounter Summary ---
Author Organization [facility] Address [address] [place] [address] Care Team Providers Care Marble Carver Name Role Phone Radha Shetty Primary Care Provider [phone] Fahad Chin MD Unavailable [phone] Encounter Details Date Type Department Care Team (Late st Contact Info) Description 11/29/[address] [facility] [address] [place] [address] Olena Mcclendon MA Social History [...] Description 02/12/2025 9:15 AM EST Office Visit [place] [facility] [address] [place] [address] Berny Larson MD [address] [facility] [address] [facility] [place] [phone] documented as of this encounter Visit Diagnoses Not on filedocumented in this encounter Care Teams Marble Carver Relationship Specialty Start Date End Date Radha Shetty [address] PCP - General 10/19/22 Fahad Chin MD [address] [facility] [address] [place] [address] Cardiology 10/19/22 documented as of this encounter
--- NOTE | 2024-12-10 08:02 | US_ITS ---
The [address] [address] Patient Name: GREGORY HENDERSON MRN: [id number] date: 1950 Sex: M Assigned Patient Location: US Current Patient Location: US Accession/Order Number: [id number] Exam Date: 12/10/2024 08:04 Report Date: 12/10/2024 11:14 At the request of: PAULO FELDMAN NP Procedure: US renal BI BILATERAL RENAL AND BLADDER ULTRASOUND CLINICAL HISTORY: Asymptomatic Microscopic Hematuria COMPARISON: CT 12/04/2024 Estimation of renal size is approximately 10.2 cm on the right and 11.6 cm on the left. No shadowing calculi or hydronephrosis are identified. The rug cleaner helper identified at least one tiny left upper pole renal cyst measuring 7 mm. At the inferior cortex on that side, there is a 2.4 x 2.0 x 1.8 cm hypoechoic area that has associated blood flow. It is uncertain if this correlates with the CT finding. It is not definitely cystic. There is no perinephric fluid. The urinary bladder is partially distended with a volume of 60 mL. The bladder wall appears slightly thickened. US/US renal BI IMPRESSION: NO OBSTRUCTIVE UROPATHY. TINY LEFT RENAL CYST AND INDETERMINATE HYPOECHOIC AREA, POSSIBLY CORRELATING WITH THE CT FINDING. FOLLOW-UP CT COULD BE OBTAINED TO ASSESS STABILITY. MRI WITHOUT AND WITH CONTRAST COULD ALSO BE CONSIDERED, IF FURTHER EVALUATION IS WARRANTED AT THIS TIME. APPARENT URINARY BLADDER WALL THICKENING. THIS WAS ALSO SEEN AT THE TIME OF THE CT STUDY. Impression dictated by: Zoila Betancourt M.D. 12/10/2024 11:14 AM Dictation Location: [place] [address] Electronically authenticated by: [id number] Y Date: 12/10/2024 11:14
--- OUTSIDE RECORDS SUMMARY | 2024-12-10 08:02 | XMS_ITS | Clinical Summary ---
Author Organization [facility] Healthcare Address [address] [place] [address] Care Team Providers Care Drying Room Operator Name Role Phone Muriel Beach MD Primary Care Provider [phone] Cm Cho DO Unavailable [phone] Allergies Active Allergy Reactions Criticality Noted Date [...] impairment 10/18/2023 Coronary artery disease invo lving [facility] [place] heart without angina pectoris 10/19/2022 Primary hypertension 10/19/2022 Encounters Date Type Department Care Team Description 11/20/2024 10:00 AM EDT Office Visit [facility] [address] [place] [address] Jaqueline Frye MD Sensorineural hearing loss (SNHL), bilateral (Primary Dx) 11/20/2024 Travel 11/19/2024 3:00 PM EDT Clinical Support [facility] [address] [place] [address] Olena Dobson CCC-A Sudden hearing loss of both ears (Primary Dx) 11/19/2024 Bamboo flowsheet [facility] [address] [place] [address] Olena Dobson CCC-A from Last 3 Months [...] Clinical Support [facility] [address] [facility] [address] [place] [phone] Olena Dobson CCC-A [address] [facility] [place] [address] 05/27/2025 8:00 AM EST Office Visit [facility] [address] [facility] [address] [place] [address] Jaqueline Frye MD [address] [facility] [address] [place] [address] Health Maintenance Due Date Last Done Comments [...] Months Insurance [employer] Care Teams Drying Room Operator Relationship Specialty Start Date End Date Muriel Beach MD [address] [place] [address] PCP - General Business Analyst Ecommerce 05/02/24 Cm Cho DO [address] [address] Referring Physician Neurology 05/02/24
--- OUTSIDE RECORDS SUMMARY | 2024-12-10 08:02 | XMS_ITS | Patient Health Record ---
Author Organization [facility] Address [address] [place], [place] [address] Care Team Providers Care Sand Analyst Name Role Phone Baylee Muriel Primary Care Provider Preston Trejo Unavailable [phone] Ly Banuelos Unavailable [phone] Autumn Emanuel Unavailable [phone] Hemal Romeroa Unavailable [phone] Allergies Allergen (clinical drug ingredient) Drug/Non Drug Allergy documented on EMR Reaction Allergy Type Onset Date Status lisinopril Lisinopril Unknown Drug Allergy Activ e sulfacetamide Sulfacetamide rash Drug Allergy Active Results Component Value Reference Range Notes Basic Metabolic Panel Reviewed date:10/25/2024 11:43:29 PM Interpretation: Performing Lab: Notes/Report: , [facility] Sodium 143 136-145 mmol/L Potassium 3.6 [...] Performing Lab: see note ML - [facility] LB NM jenny perf SPECT rest str Reviewed date:10/29/2024 11:27:54 AM Interpretation: Performing Lab: Notes/Report: Source Facility: [place] [address] Nuclear Medicine Report Signed Patient: GREGORY SWAIN MR#: [id number] : 1950 Acct:[id number] Age/Sex: 74 / M ADM Date: 10/28/24 Loc: NM Attending Dr: Berny Escobedo M.D. Ordering Physician: Berny Escobedo M.D. Date of Service: 10/28/24 Procedure(s): NM jenny perf SPECT rest str Accession Number(s): [id number] cc: Berny Escobedo M.D.; Muriel Beach NP Patient Name: GREGORY SWAIN MR#: [id number] : 1950 Exam Date: 10/28/2024 Ordering Doctor: [...] the study was pending per attending physician [facility]. For more details, please see separate cardiac [...] M.D. Signed By: 10/29/24911 DD/ 1 TD/TT: Jumpbasting Armhole Baster: Creatinine Reviewed date:12/05/2024 10:16:52 AM Interpretation: Performing Lab: Notes/Report: , [facility] Creatinine 1.29 0.70-1.30 mg/dL Estimated GFR ( Stefanie >60 >=60 mL/min/1.73m 2 Estimated GFR (Non- Yaz 54 >=60 mL/min/1.73m 2 Performing Lab: see note ML - [facility] LB CT abdomen pelvis wo con Reviewed date:12/05/2024 10:24:48 AM Interpretation: Performing Lab: Notes/Report: Source Facility: [place] [address] CT Scan Report Signed Patient: GREGORY SWAIN MR#: [id number] : 1950 Acct:[id number] Age/Sex: 74 / M ADM Date: 12/04/24 Loc: LAB Attending Dr: Raul Rehman M.D. Ordering Physician: Raul Rehman M.D. Date of Service: 12/04/24 Procedure(s): CT abdomen pelvis wo/w con Accession Number(s): [id number] cc: Muriel Beach NP [place] [address] Patient Name: GREGORY SWAIN MRN: [id number] date: 1950 Sex: M Assigned Patient Location: LAB Current Patient Location: LAB Accession/Order Number: [id number] Exam Date: 12/04/2024 08:30 Report Date: 12/04/2024 09:40 At the request of: RAUL REHMAN MD Procedure: CT abdomen pelvis wo/w con CT ABDOMEN AND PELVIS WITHOUT AND WITH INTRAVENOUS CONTRAST COMPARISON: None CLINICAL DATA: Microscopic hematuria. Prostate enlargement. Spiral images were obtained through the abdomen and pelvis before and after intravenous administration of [address] exam was performed using one or more following dose reduction techniques: Automated exposure control, adjustment of the mA and/or kV according to patient size, or use of iterative reconstruction technique. Limited cuts through the lung bases show a right lower lobe pulmonary nodule measuring 7 - 8 mm in size. The kidneys are within normal limits for size, position and contour. Precontrast, there is a hyperdense cortical nodule at the mid to lower pole on the left measuring 13 mm in size. This might be a hemorrhagic cyst. No renal, ureteral or bladder stones are seen. Following contrast administration, the renal nephrograms are symmetric. No hydronephrosis is noted. There are additional hypodensities measuring up to 1 cm in size at the mid and upper pole of the left kidney. These might be cysts. The ureters are segmentally opacified. There is an enlarged prostate with mass effect at the bladder trigone. The urinary bladder is poorly distended and the wall appears thickened. There are no obvious intraluminal abnormalities. No calcified gallstones are noted. No intrahepatic masses are seen. There may be mild fatty infiltration of the liver. The spleen, pancreas and adrenal glands show no acute findings. The abdominal aorta is normal caliber. There are small lymph nodes. There is also hazy density at the root of the mesentery. This may be mesenteric panniculitis. No ascites is seen. The small bowel loops are not distended. Mild stool is visualized along the colon. There are scattered colonic diverticula. There is slight levoscoliotic curvature. There are also multilevel degenerative changes at the spine with associated stenosis. Images through the pelvis show no dilated small bowel. No appendiceal inflammation is seen. There is mild stool at the distal colon. Additional colonic diverticula are visualized, without associated active inflammation. No ascites is seen. There are mildly patulous inguinal rings containing fat. There are benign-appearing distal external iliac and inguinal lymph nodes. There are degenerative changes at the SI joints, greater on the left. There is also minor degenerative change at the hips. CT/CT abdomen pelvis wo/w con IMPRESSION: INCIDENTAL RIGHT LOWER LOBE PULMONARY NODULE. THERE IS NO HISTORY REGARDING TOBACCO USE OR PRIOR CHEST IMAGING FOR CORRELATION. UNLESS THERE IS PRIOR OUTSIDE IMAGING SHOWING STABILITY, FOLLOW-UP IS SUGGESTED ACCORDING TO [employer] GUIDELINES. NO OBSTRUCTIVE UROPATHY OR STONE DISEASE. HYPER AND HYPODENSE LEFT RENAL NODULARITY. THIS MAY BE SIMPLE AND HEMORRHAGIC CYSTS. ULTRASOUND COULD BE CONSIDERED FOR CONFIRMATION. UNDER DISTENDED URINARY BLADDER WITH APPARENT WALL THICKENING. PROSTATE HYPERTROPHY. 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 DIVERTICULOSIS. Impression dictated by: Zoila Betancourt M.D. 12/04/2024 9:40 AM Dictation Location: [place] [address] Electronically authenticated by: [id number] Y Date: 12/04/2024 09:40 Dictated By: Zoila Betancourt M.D. Signed By: 12/04/2443 DD/ 9 TD/TT: Jumpbasting Armhole Baster: CADEN A1C Reviewed date:08/06/2024 08:41:10 AM Interpretation: Performing [...] Notes/Report: PSA, TOTAL 5.740 0-4.00 ng/mL Method: John Tonia ECLIA PSA levels should not be [...] UNLESS OTHERWISE INDICATED, ALL TESTING PERFORMED AT: [facility]. [address] [place] [address] CATALYTIC CASE OPERATOR: Hina SMITHIA NUMBER [id number] CAP ACCREDITATION AUID [id number] POCT A1C Reviewed date:11/06/2024 10:39:02 AM Interpretation: Performing Lab: Notes/Report: COMPREHENSIVE METABOLIC [...] UNLESS OTHERWISE INDICATED, ALL TESTING PERFORMED AT: [facility]. [address] [place] [address] CATALYTIC CASE OPERATOR: ROMELIA MARTE M.D. CLIA NUMBER [id number] CAP ACCREDITATION AUID [id number] Changes in testing location may be associated with reference range changes for a number of analytes. Please review reference intervals carefully. Reason For Referral Reason Would like hearing e valuated Diagnosis 1 Hearing difficulty o f both ears (H91.93) Referral Organization Main Referring Provider First Name Muriel Referring Provider Last Name Baylee Referred Provider [facility] Referred Provider Specialty Ear, nose an d throat surgeon General Notes Roxanna Talbert 11/02 10:38:28 AM >see scanned report Referral Priority Routine Referral Appointment Date 11/19/2024 Reason Elevated PSA Diagnosis 1 Elevated PSA (R97.20 ) Referral Organization Main Referring Provider First Name Muriel Referring Provider Last Name Baylee Referred Provider [facility] l[place]ue Referred Provider Specialty Urology General Notes Roxanna Talbert 11/02 06:34:56 PM >see scanned document Referral Priority Routine Referral Appointment Date 11/25/2024 Medications Medication SIG (Take, Route, Frequency, Duration) Notes Start Date End Date Status Atorvastatin Calcium 80 MG 1 tablet Oral Once a day; Duration: 90 days Active hydroCHLOROthiazide 25 MG TAKE 1 TABLET EVERY MORNING; Duration: 90 Active Lancets - 1 lancet once a day; Duration: 90 days *whatever brand is covered by insurance TRUEPLUS 33G LANCET 11/09/2022 Active Metoprolol Tartrate 50 MG TAKE 1 TABLET TWICE DAILY WITH FOOD; Duration: 90 Active Clopidogrel Bisulfate 75 MG [...] 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 Stress is when someone feels tense, nervous, anxious, or can't sleep at night because their mind is troubled Not at all patient entered data In the past year have you sp ent more than 2 nights in a row in a penitentiary, penitentiary, long-term center, or juvenile correctional facility? No patient [...] Problem Type II diabetes mellitus without complication (673906868) Type 2 diabetes mellitus without complication, without long-term current use of insulin (E11.9) Active confirmed Problem Lower urinary tract symptoms due to benign prostatic hypertrophy (86158157830230) Benign prostatic hyperplasia with lower urinary tract symptoms (N40.1) Active confirmed Problem Amnesia (61635190) Memory change s (R41.3) Active confirmed Problem Hypertriglyceridemia (511100779) Hypertriglyceridemia (E78.1) Active confirmed Problem Obese class II (826122186639123) BMI 37.0-37.9, adult (Z68.37) Active confirmed Problem 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) Low HDL (under 40) (E78.6) Active confirmed Problem Hearing loss (79014022) Hearing difficulty of both ears (H91.93) Active confirmed Problem Solitary pulmonary nodule (557925355) Right lower lobe pulmonary nodule (R91.1) Active confirmed Problem Primary hypertension (57180374) Primary hypertension (I10) Active confirmed Problem Chronic kidney disease stage 3A (286824717) Stage 3a chronic kidney disease (N18.31) Active confirmed Problem Atherosclerotic hear t disease of [place] coronary artery without angina pectoris (399040399584199) Coronary artery disease involving [place] heart without angina pectoris, unspecified vessel or lesion type (I25.10) Active confirmed Vital Signs Heart Rate 66 /min 11/06/2024 Payton Stephen 11/06/2024 08:29:20 AM EDT > Temperature 96.8 degrees Fahrenheit 11/06/2024 Payton Diallo 11/06/2024 08:29:20 AM EDT > Respiratory Rate 18 /min 11/06/2024 Maribel Stephen 11/06/2024 08:29:20 AM EDT > Blood pressure diastolic 69 mm Hg 11/06/2024 Payton Watson 11/06/2024 08:29:20 AM EDT > Oximetry 96 % 11/06/2024 Payton Stephen 11/06/2024 08:29:20 AM EDT > Height-cm 162.56 cm 11/06/2024 FelizMaribel castanoncey 11/06/2024 08:29:20 AM EDT > Weight-kg 104.51 kg 11/06/2024 Payton Stephen 11/06/2024 08:29:20 AM EDT > Height 64 in 11/06/2024 Felizlg Payton 11/06/2024 08:29:20 AM EDT > Blood pressure systolic 111 mm Hg 11/06/2024 Feliz lgPayton 11/06/2024 08:29:20 AM EDT > Weight 230.4 lbs 11/06/2024 FelizlgPayton 11/06/2024 08:29:20 AM EDT > BMI 39.54 kg/m2 11/06/2024 Payton Stephen 11/06/2024 08:29:20 AM EDT > Procedures Procedure Date Ordered Date Performed Result Body Sit e EAR IRRIGATION 11/06/2024 11/06/2024 N/A Encounters Encounter Location Date Provider Diagnosis Main [address] [place], [place] [id number] 02/01/2024 [facility] Type 2 diabetes kings itus without complication, without long-term current use of insulin E11.9 ; Primary hypertension I10 ; Impacted cerumen, right ear H61.21 ; Body mass index [BMI] 36.0-36.9, adult Z68.36 and Morbid (severe) obesity due to excess calories E66.01 Main [address] [place], [place] [id number] 08/06/2024 [facility] Type 2 diabetes kings itus without complication, without long-term current use of insulin E11.9 ; Primary hypertension I10 ; Hypertriglyceridemia E78.1 ; Stage 3a chronic kidney disease N18.31 ; Severe obesity (BMI >= 40) E66.01 and BMI 40.0-44.9, adult Z68.41 Main [address] [place] [id number] 10/28/2024 [facility] BMI 39.0-39.9,adult Z68.39 ; Hearing difficulty of both ears H91.93 and Obesity (BMI 30-39.9) E66.9 Main [address] [place], [place] [id number] 11/06/2024 [facility] Type 2 diabetes kings itus without complication, without long-term current use of insulin E11.9 ; Primary hypertension I10 ; Hearing difficulty of both ears H91.93 ; Benign prostatic hyperplasia with lower urinary tract symptoms N40.1 ; Impacted cerumen of right ear H61.21 ; BMI 39.0-39.9,adult Z68.39 and Obesity (BMI 30-39.9) E66.9 Main [address] [place], [place] [id number] 12/15/2023 Autumn Emanuel Type 2 diabetes mellitus without complication, without long-term current use of insulin E11.9 [place] [address] [place] [address] 01/15/2024 Ly Banuelos Main [address] [place], [place] [id number] 03/06/2024 [facility] Type 2 diabetes kings itus without complication, without long-term current use of insulin E11.9 Main [address] [place], [place] [id number] 05/13/2024 [facility] Type 2 diabetes kings itus without complication, without long-term current use of insulin E11.9 [facility] [address] [place], [place] [id number] 05/13/2024 [facility] [address] [place], [place] [id number] 05/13/2024 [facility] Type 2 diabetes kings itus without complication, without long-term current use of insulin E11.9 [facility] [address] [place], [place] [id number] 10/09/2024 [place] [address] [place], [place] [id number] 11/08/2024 [facility] Elevated PSA R97.20 Main [address] [place], [place] [id number] 12/05/2024 [facility] Right lower lobe pul monary nodule R91.1 Assessments Encounter Date Diagnosis (ICD [...] time 11/08/2024 Elevated PSA (ICD-10 - R97.20) 12/05/2024 Right lower lobe pulmonary nodule (ICD-10 - R91.1) 11/06/2024 Hearing difficulty o f both ears [...] ) (ICD-10 - E66.9) Plan Of Treatment Pending Test Test Name Order Date CHEST WO CONT 12/05/2024 Next Appt Details Provider Name:Muriel Beach , 02/06/2025 08:30:00 AM, [address] [place], [place], [id number], Insurance Providers Payer Name Payer Address Payer Phone Subscriber Number Group Number Insured Name Patient Relationship to Insured Coverage Start Date Coverage End Date [employer] [address] [address] [place] [address] [id number] Gregory Swain Self - patient is the insured 3 Medical (General) History Medical History History ICD Code Hypertension Coronary Artery Disease Benign Prostatic Hypertrophy Low HDL Surgical History Surgery Date(Month/Year) right knee replacement 2017 left knee replacement 2020 left foot surgery, pins 2008 pylocyst 1970 2 heart cath/stent 2017 Hospitalization History Reason Date(Month/Year) Lynn Palsy 07/2021
--- OUTSIDE RECORDS SUMMARY | 2024-12-10 08:02 | XMS_ITS | Patient Health Record ---
Author Organization [facility] are Address [address] [facility] [place] [address] Care Team Providers Care Manager Fine Dining Name Role Phone NOE LIRIANO MD Primary Care Provider Salvador arshad RUEL GORAN Unavailable [phone] Allergies Allergen (clinical drug ingredient) Drug/Non Drug [...] Status Risk Notes Problem Benign prostatic hyperplasia (144367348) BPH (benign prostatic hyperplasia) (N40.0) Active confirmed Problem Microscopic hematuria (439950824) Benign microscopic hematuria (R31.1) Active confirmed Problem Elevated PSA (638498636) Elevated PSA (R97.20) Active confirmed Plan Of Treatment Pending Test Test Name Order Date PSA, total 10/17/2018 CT UROGRAM (triple phase CT) ADD BUN AND CREATINE 10/17/2018 Insurance Providers Payer Name Payer Address Payer Phone Subscriber Number Group Number Insured Name Patient Relationship to Insured Coverage Start Date Coverage End Date [employer] [address] [address] [place] [address] [phone] [id number] GREGORY HENDERSON Self - patient is the insured Medical (General) History Medical History History ICD Code arthritis heart disease Surgical History Surgery Date(Month/Year) left knee 2006 right knee 2007 broken left foot. 2007 Hospitalization History Reason Date(Month/Year) heart catheter 2017
--- OUTSIDE RECORDS SUMMARY | 2024-12-10 08:02 | XMS_ITS | Clinical Summary ---
Author Organization [facility] Address [address] [place] [address] Care Team Providers Care Supervisor Bakery Sanitation Name Role Phone Radha Shetty Primary Care Provider [phone] Fahad Chin MD Unavailable [phone] Allergies Active Allergy Reactions Criticality Noted Date [...] impairment 10/18/2023 Coronary artery disease invo lving [place] heart without angina pectoris 10/19/2022 10/19/2022 Primary hypertension 10/19/2022 10/19/2022 Encounters Date Type Department Care Team Description 11/29/2024 Telephone [facility] [address] [place] [address] Olena Mcclendon MA 11/29/2024 Telephone [facility] [address] [place] [address] Olena Mcclendon MA 11/29/2024 Telephone [facility] [address] [place] [address] Olena Mcclendon MA 11/01/2024 Orders Only [facility] [address] [place] [address] Lauren Marie MA Essential hypertension (Primary Dx) 10/31/2024 Telephone [facility] [address] [place] [address] Lauren Marie MA 10/29/2024 Orders Only [facility] [address] [place] [address] Provider, MD Lorena 10/24/2024 Orders Only [facility] [address] [place] [address] Provider, MD Lorena 10/10/2024 9:15 AM EDT Office Visit [facility] [address] [place] [address] Berny Larson MD Silent myocardial ischemia (Primary Dx); Coronary artery disease involving [place] coronary artery of [place] heart without angina pectoris; Dyslipidemia; Benign hypertensive heart disease without congestive heart failure 10/10/2024 Orders Only [facility] [address] [place] [address] Olena Mcclendon MA Chest pain, unspecified type (Primary Dx) 10/10/2024 Orders Only [facility] [address] [place] [address] Olena Mcclendon MA Essential hypertension (Primary Dx) [...] Description 02/12/2025 9:15 AM EST Office Visit [facility] [address] [place] [address] Berny Larson MD [address] [facility] [place] [address] Health Maintenance Due Date Last [...] l Result from Last 3 Months Insurance [facility] MEDICARE ADVANTAGE Care Teams Supervisor Bakery Sanitation Relationship Specialty Start Date End Date Radha Shetty [address] PCP - General 10/19/22 Fahad Chin MD [address] [place] [address] Cardiology 10/19/22
--- OUTSIDE RECORDS SUMMARY | 2024-12-10 08:02 | XMS_ITS | Patient Health Record ---
Author Organization [facility] Address [address] [facility] [place], [place] [address] Care Team Providers Care Health Safety Coordinator Name Role Phone Jayce Curtis MD Primary Care Provider [phone] Reason For Referral No Information Plan Of Treatment No Information
--- OUTSIDE RECORDS SUMMARY | 2024-12-10 08:02 | XMS_ITS | Encounter Summary ---
Author Organization [facility] Address [address] [place] [address] Care Team Providers Care Aircraft Loadmaster Superintendent Name Role Phone Radha Shetty Primary Care Provider [phone] Fahad Chin MD Unavailable [phone] Encounter Details Date Type Department Care Team (Late st Contact Info) Description 11/29/2024 Telephone [place] [address] [place] [address] Olena Mcclendon MA Social History [...] Description 02/12/2025 9:15 AM EST Office Visit [facility] [address] [place] [address] Berny Larson MD [address] [facility] [address] [place] [address] documented as of this encounter Visit Diagnoses Not on filedocumented in this encounter Care Teams Aircraft Loadmaster Superintendent Relationship Specialty Start Date End Date Radha Shetty [address] PCP - General 10/19/22 Fahad Chin MD [address] [facility] [address] [place] [address] Cardiology 10/19/22 documented as of this encounter
--- OUTSIDE RECORDS SUMMARY | 2024-12-10 08:02 | XMS_ITS | Patient Health Record ---
Author Organization [facility] Address [address] [place] [address] Care Team Providers Care Kosher Dietary Service Manager Name Role Phone Osei Renee Primary Care Provider Amber Persaud MD, Veronica Unavailable Reason For Referral No Information Plan Of Treatment No Information Insurance Providers Payer Name Payer Address Payer Phone Subscriber Number Group Number Insured Name Patient Relationship to Insured Coverage Start Date Coverage End Date [employer] [address] [address] [place] [address] [id number] GREGORY HENDERSON Self - patient is the insured
--- OUTSIDE RECORDS SUMMARY | 2024-12-10 08:06 | XMS_ITS | CCD ---
Author Organization [facility] ion Partnership [facility] Care Team Providers Care Catering Manager Name Role Phone KayleyMalia mercado Unavailable Pattie Janna Unavailable Baylee VILLEGAS, Muriel Primary Care Provider [phone] Cm Cho DO Unavailable [phone] Holden COOPER-COMMERCIAL MAKEUP ARTIST-CMichelle Attending Provider Baylee JANITORIAL SUPERVISOR-C, Faisal Gonzalez Primary Care Provider [phone] Cm Cho DO Unavailable MICHELLE DILLARD Attending Unavailable OLENA DOBSON Attending Unavailable JAQUELINE THACKER Attending Unavailable BAYLEE MURIEL Primary Care Physician BAYLEE MURIEL Primary Care Unavailable Raul REHMAN [...] mechanism of action (substance) Drug allergy 4 [facility] (5 sources) Lisinopril; Translations: [lisinopril] Drug Allergy 5 [facility] (1 source) Sulfonamides (Antibiotic) Allergy to substance 5 [facility] (2 sources) Sulfonamide; Translations: [sulfa drugs] Drug allergy [facility] (1 source) Sulfacetamide; Translations: [SULFACETAMIDE] Drug Allergy 3 [facility] Repository Medications Current Medications Medication Drug Class(es) [...] Active Start: 06-20-2022 [facility] Benzonatate 200 MG 1 capsule Orally Three times a day prn cough Jun, Active Start: 06-07-2022 take 1 capsule by [facility] eight hours Tessalon Perles 100 [...] day(s), # 28 cap(s), Refills(s) 0, Pharmacy: [id number], 162, cm, 11/25/24 10:20:00 EDT, Height/Length Dosing, 102.9, kg, 11/25/24 10:20:00 EDT, Weight Dosing Start Date: 11/25/24 Stop Date: 12/09/24 Status: Ordered Quantity: 28.0 Unit: cap(s) Repeat number: 1 Start: 06-20-2022 take 1 capsule by [facility] twelve hours Doxycycline Hyclate 100 MG 1 capsule Orally Twice a day for 10 Jun, Active dutasteride 0.5 mg oral capsule (1 source) 5-alpha Reductase Inhibitor Start: 11-25-2024 take 1 capsule by mouth once daily dutasteride 0.5 mg Cap 0.5 mg = 1 cap(s), Oral, Daily, # 90 cap(s), Refills(s) 3, Pharmacy: [facility], 162, cm, 11/25/24 10:20:00 [...] BID, # 90 cap(s), Refills(s) 3, Pharmacy: [facility], 162, cm, 11/25/24 10:20:00 [...] Coronary arteriosclerosis; Translations: [Atherosclerotic heart disease of [place] coronary artery without angina pectoris] Onset: 10-19-2022 [...] discuss need for bp medications.Please advise. Normal [facility] Telephoneon 11-29-2024 Telephone [id number] Gregory Swain 1950 [facility] Provider Department [facility] 11/29/2024 [id number] RASMUSSEN CARD [facility] Family History Problem Relation Age of Onset Pancreatitis Mother Supraventricular tachycardia Mother Atrial fibrillation Mother Family Status - Relation Status Age at Mother Father Normal [facility] Ambulatory Visit Summaryon 0 11-25-2024 Ambulatory Visit [...] mos Where: [address] [place] [address] [place] [address] Medications What How Much When Instructions Unchanged [...] ??? (more content not included)... Normal [facility] Urology Office/Clinic Noteon 11-25-2024 Urology Office/Clinic Note [...] Dutasteride 0.5 mg qd. Rx sent to [facility]. -F/u in 4 mos 3. 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 UA shows small blood. Denies ever experiencing gross hematuria. States he had a cystoscopy done ~5 yrs ago by urologist in [place], [place] for microscopic hematuria. Denies recent urologic [...] Contact Information PILAR VILLEGAS, Raul Francis, URL [address] [place] [address] [place] [address] Additional Instructions: 4 mos w/ PSA Patient [...] 1 tab(s) (more content not included)... Normal [facility] Comment on above: Result Comment: Electronically Signed By : Raul REHMAN MD\.br\Date and Time Signed: 11/25/24 11:09 EDT\.br\Electronically Co-Signed By: Albertina Strong\.br\Date and Time Co-Signed: 11/25/24 11:07 EDT Auditory function testson Right Ear: Mild to moderate sensorineural hearing loss above 2K Hz. Left Ear: Mild to severe sensorineural hearing loss above 2K Hz. [facility] roomlinx [facility] Healthcar e Orders Onlyon 10-29-2024 Orders Only [id number] Gregory Swain 1950 [facility] Provider Department Center 10/29/2024 [id number], HISTORICAL CARD [facility] Family History Problem Relation Age of Onset Pancreatitis Mother Supraventricular tachycardia Mother Atrial fibrillation Mother Family Status - Relation Status Age at Mother Father Normal [facility] Orders Onlyon 10-24-2024 Orders Only [id number] Gregory Swain 1950 [facility] Provider Department Center 10/24/2024 [id number], HISTORICAL BH CARD [facility] Family History Problem Relation Age of Onset Pancreatitis Mother Supraventricular tachycardia Mother Atrial fibrillation Mother Family Status - Relation Status Age at Mother Father Normal [facility] Office Visiton 10-10-2024 Follow-up visit [id number] Gregory Swain 1950 [facility] Provider Department Center 10/10/2024 Joe-BERNY LARSON CARD [facility] Family History Problem Relation Age of Onset Pancreatitis Mother Supraventricular tachycardia Mother Atrial fibrillation Mother Family Status - Relation Status Age at Mother Father Level of Service:17539 NM OFFICE/OUTPATIENT ESTABLISHED MOD MDM 30 MIN Normal [facility] Office Visiton 04-26-2024 Follow-up visit [id number] Gregory Swain 1950 [facility] Provider Department Center 04/26/2024 [id number] CHIN CARD [facility] Family History Problem Relation Age of Onset Pancreatitis Mother Supraventricular tachycardia Mother Atrial fibrillation Mother Family Status - Relation Status Age at Mother Level of Service:82413 NM OFFICE/OUTPATIENT ESTABLISHED LOW MDM 20 MIN Normal [facility] COVID Quick Testingon 2022 Result Negative [employer] Other Quick Strepon 09-18-2022 S. pyogenes Org specific cx Ql (Throat) Negative [employer] Other Quick Strep [employer] Other COVID + FLU Quick Testingon 06-07-2022 SARS-CoV-2 (COVID-19) RNA LEANN+probe Ql (Unsp spec) Positive [employer] Other COVID + FLU Quick Testing Negative [employer] Other Vital Signs Date Time Vital Sign Value Performing Clinician Facility 11-20-2024 09:43-0400 Body height 162.6 cm Jaqueline Thacker MD Work Phone: [facility] 11-20-2024 09:43-0400 Body mass index (BMI) [Ratio] 39.48 kg/m2 Jaqueline Thacker MD Work Phone: [facility] 11-20-2024 09:43-0400 Body weight 104.33 kg Jaqueline Thacker MD Work Phone: [facility] 11-20-2024 09:43-0400 Diastolic blood pressure 63 mm[Hg] Jaqueline Thacker MD Work Phone: [facility] 11-20-2024 09:43-0400 Heart rate 70 /min Jaqueline Thacker MD Work Phone: [facility] 11-20-2024 09:43-0400 Systolic blood pressure 112 mm[Hg] Jaqueline Thacker MD Work Phone: [facility] 11-12-2024 13:00-0400 Body height 162.56 cm Faisal Beach JANITORIAL SUPERVISOR-C Work Phone: [facility] 11-12-2024 13:00-0400 Body mass index (BMI) [Ratio] 39.1 kg/m2 Faisal Beach JANITORIAL SUPERVISOR-C Work Phone: [facility] 11-12-2024 13:00-0400 Body weight 103.41 kg Faisal Beach JANITORIAL SUPERVISOR-C Work Phone: [facility] 11-12-2024 13:00-0400 Diastolic blood pressure 88 mm[Hg] Faisal Beach JANITORIAL SUPERVISOR-C Work Phone: [facility] 11-12-2024 13:00-0400 Heart rate 58 /min Faisal Beach JANITORIAL SUPERVISOR-C Work Phone: [facility] 11-12-2024 13:00-0400 Respiratory rate 16 /min Faisal Beach JANITORIAL SUPERVISOR-C Work Phone: [facility] 11-12-2024 13:00-0400 SaO2% (BldA) [Mass fraction] 98 % Faisal Beach JANITORIAL SUPERVISOR-C Work Phone: [facility] 11-12-2024 13:00-0400 Systolic blood pressure 130 mm[Hg] Faisal Beach JANITORIAL SUPERVISOR-C Work Phone: [facility] 05-02-2024 15:25-0500 Body mass index (BMI) [Ratio] 39.48 kg/m2 Michelle Dillard JANITORIAL SUPERVISOR Work Phone: [facility] 05-02-2024 15:25-0500 Body weight 104.33 kg Michelle Dillard JANITORIAL SUPERVISOR Work Phone: [facility] 05-02-2024 15:25-0500 Diastolic blood pressure 72 mm[Hg] Michelle Dillard JANITORIAL SUPERVISOR Work Phone: [facility] 05-02-2024 15:25-0500 Heart rate 61 /min Michelle Dillard JANITORIAL SUPERVISOR Work Phone: [facility] 05-02-2024 15:25-0500 SaO2% (BldA) [Mass fraction] 98 % Michelle Dillard JANITORIAL SUPERVISOR Work Phone: [facility] 05-02-2024 15:25-0500 Systolic blood pressure 120 mm[Hg] Michelle Dillard JANITORIAL SUPERVISOR Work Phone: [facility] 09-18-2022 09:00-0400 Body height 162.56 cm Janna Blankenship Other [employer] Other 09-18-2022 09:00-0400 Body mass index (BMI) [Ratio] 37.07 kg/m2 Janna Blankenship Other [employer] Other 09-18-2022 09:00-0400 Body temperature 98.4 [degF] Janna Blankenship Other [employer] Other 09-18-2022 09:00-0400 Body weight 97.98 kg Janna Blankenship Other [employer] Other 09-18-2022 09:00-0400 Diastolic blood pressure 70 mm[Hg] Janna Blankenship Other [employer] Other 09-18-2022 09:00-0400 Respiratory rate 18 /min Janna Blankenship Other [employer] Other 09-18-2022 09:00-0400 SaO2% (BldA) [Mass fraction] 97 % Janna Blankenship Other [employer] Other 09-18-2022 09:00-0400 Systolic blood pressure 118 mm[Hg] Janna Blankenship Other [employer] Other 06-20-2022 10:10-0400 Body height 162.56 cm Malia Zaldivar Other [employer] Other 06-20-2022 10:10-0400 Body temperature 97.3 [degF] Malia Kayley Other [employer] Other 06-20-2022 10:10-0400 Respiratory rate 18 /min Malia Zaldivar Other [employer] Other 06-20-2022 10:10-0400 SaO2% (BldA) [Mass fraction] 97 % Malia Hensonmond Other [employer] Other 06-07-2022 09:00-0500 Body height 162.56 cm Malia Zaldivar Other [employer] Other 06-07-2022 09:00-0500 Body mass index (BMI) [Ratio] 38.45 kg/m2 Malia Zaldivar Other [employer] Other 06-07-2022 09:00-0500 Body temperature 102 [degF] Malia Zaldivar Other [employer] Other 06-07-2022 09:00-0500 Body weight 101.61 kg Malia Zaldivar Other [employer] Other 06-07-2022 09:00-0500 SaO2% (BldA) [Mass fraction] 96 % Malia Kayley Other [employer] Other Encounters Encounter Date Encounter Type Care Provider Facility Start: 03-24-2025 ambulatory Raul Lorenzo ty:[facility] Start: 03-17-2025 ambulatory Raul Lorenzo ty:NATALIO [place] Start: 11-25-2024 End: 11-25-2024 ambulatory Raul REHMAN Facility:[facility] Start: 11-25-2024 End: 11-25-2024 Patient encounter procedure Raul Tito REHMAN [facility] Start: 11-20-2024 End: 11-20-2024 Office outpatient new [...] Start: 11-12-2024 End: 11-12-2024 ambulatory Faisal Beach JANITORIAL SUPERVISOR-C Work Phone: [facility] Work Phone: Start: 11-12-2024 End: 11-12-2024 Patient encounter procedure Michelle Dillard DOCUMENT DESIGN SPECIALIST-COMMERCIAL MAKEUP ARTIST-C -[facility] Work Phone: Start: 11-11-2024 ambulatory MURIEL BEACH Facility :[facility] Start: 10-10-2024 End: 10-10-2024 ambulatory AB [facility] Start: 05-02-2024 End: 05-02-2024 Office outpatient visit 15 minutes Michelle Dillard JANITORIAL SUPERVISOR Work Phone: [facility] Comment on above: Mild cognitive impai rment (Primary Dx); ALEXYS on CPAP; Type 2 diabetes mellitus with hyperglycemia, without long-term current use of insulin ([facility]) Start: 05-02-2024 End: 05-02-2024 ambulatory MICHELLE DILLARD Not Available Start: 05-02-2024 End: 05-02-2024 Bamboo flowsheet Michelle Holden JANITORIAL SUPERVISOR Work Phone: [facility] Start: 05-02-2024 End: 05-02-2024 Bamboo flowsheet Michelle Holden JANITORIAL SUPERVISOR Work Phone: [facility] Start: 04-26-2024 End: 04-26-2024 [facility] Start: 09-18-2022 End: 09-18-2022 ambulatory Janna Blankenship Other [employer] Other Start: 09-18-2022 Office outpatient vi sit 15 minutes Janna Blankenship [facility] [place] Start: 06-20-2022 End: 06-20-2022 ambulatory Maliashannan Zaldivar Other [employer] Other Start: 06-20-2022 Office outpatient vi sit 15 minutes Malia Kayley [facility] [place] Start: 06-07-2022 End: 06-07-2022 ambulatory Malia Kayley Other [employer] Other Start: 06-07-2022 Office outpatient ne w 20 minutes Malia Kayley [facility] [place] Procedures Date Procedure Procedure Detail Performing Clinician Start: 11-19-2024 AUDITORY FUNCTION TESTS Olena Dobson [facility] Work Phone: History of arthropla sty of left knee Raul REHMAN History of right tot al knee replacement Raul REHMAN Plan of Treatment Date Care Activity Detail Author Start: 12-02-2024 Influenza vaccination Influenza Vacc ine (#1) [facility] Start: 11-20-2024 End: 11-20-2024 Patient encounter procedure 11/20/2024 10:00 AM EDT Office Visit [facility] [address] [facility] [address] [place] [address] Jaqueline Thacker MD [address] [facility] [address] [place] [address] [facility] Start: 11-19-2024 End: 11-19-2024 Clinical Support 11/19/2024 3:00 PM EDT Clinical Support R[facility]D [facility] [address] [facility] [place] [address] Olena Dobson, [facility] [address] [facility] [place] [address] Arrived [facility] Comment on above: Arrived Start: 11-12-2024 End: 11-12-2024 Patient encounter procedure 11/12/2024 1:00 PM EDT Office Visit [facility] [address] [place] [address], [place] [phone] Michelle Dillard NP [address] [place] [address] [facility] Start: 05-02-2024 End: 05-02-2024 Patient encounter procedure 05/02/2024 4:00 PM EST Office Visit [facility] [address] [place] [address] Michelle Dillard NP [address] [place] [address] Arrived [facility] Comment on above: Arrived Start: 2013 Pneumococcal Vaccine : 65+ Years (1 of 1 - PCV) Pneumococcal Vaccine: 65+ Years (1 of 1 - PCV) [facility] Start: 1998 Pneumococcal Vaccine : 65+ Years (1 of 1 - PCV) Pneumococcal Vaccine: 65+ Years (1 of 1 - PCV) [facility] Start: 1950 Screening for malignant neoplasm of colon [facility] Immunizations Immunization Date Immunization Notes Care Provider Cristhian edwin 02-23-2024 influenza virus vaccine, unspecified formulation Olena Dobson [facility] Work Phone: [facility] Payers Date Payer Category Payer Medicare [id number] 2022 Medicare (Managed Care) [employer] M EDICARE ADVANTAGE Member Subscriber Plan / Payer (Effective 2022-Present) Name: Gregory Swain Relation to Subscriber: Self Name: Gregory Swain Payer ID: [id number] (NAIC) Type: Not on file Address: [place] [id number] 2022 Medicare [id number] 1950 Unknown [id number] 1950 Unknown [id number] [id number] 1950 Unknown [id number] 1950 Unknown [id number] [id number] 1950 Unknown [id number] [id number] 1950 Unknown [id number] Social History Date Type Detail Facility Start: 10-23-2023 End: 11-20-2024 Sex Assigned At [facility] Start: 10-18-2023 End: 11-25-2024 Tobacco smoking status NHIS Never smoked tobacco [facility] Start: 10-18-2023 Tobacco use and exposure Smoke less tobacco non-user [facility] Start: 10-23-2023 End: 11-20-2024 Alcoholic beverage intake Lifetime non-drinker (finding) [facility] Start: 10-23-2023 End: 11-20-2024 History of Social function [facility] Start: 1950 Sex assigned at Not on file [facility] Work Phone: Sex Male (finding) [facility] Start: 1950 Sex Assigned At Male [facility] Tobacco smoking status Never [facility] Sexual Orientation [facility] Clinical Notes 06-01-2022 to 11-29-2024 Jaqueline Thacker MD - 11/20/2024 10:00 AM Juan Diego Dobson CCC-Luz - 11/19/2024 3:00 PM Eusebio Dillard NP - 05/02/2024 4:00 PM EST Note Date & Type Note Facility 11-29-2024 Note Spoke to patient, Ad vised patient of Dr. Batista recommendations. Patient verbalized understanding and agreed with plan of care [facility] 11-25-2024 Hospital Discharge instructions Patient Education 11/25/2024 [...] Follow these instructions at home: Medicines Take noyo-nhv-jqcpicf and prescription medicines only as told by [...] important. Where to find more information National [employer] of Diabetes and Digestive and Kidney Diseases: [...] depends on the type of prostatitis. Take lblk-kjf-qqbtdtp and prescription medicines only as told by [...] provider. Document Revised: 02/02/2023 Document Reviewed: 02/02/2023 [employer] Patient Education 2023 [employer]. Follow Up Care 11/12/2024 09:10:12 With:PILAR VILLEGAS, Raul Francis, URL Address: [address] [facility] [place] [address] When: Unknown Comments:4 mos w/ PSA [facility] 11-25-2024 Note Patient Education Infectious Disease Prostatitis [...] these instructions at home: Medicines ??? Take dyxk-eem-hvvkhmg and prescription medicines only as told by [...] This is important. (more content not included)... [facility] 11-20-2024 History of Present illness Narrative [...] 3a (CMS-HCC) 11/19/2024 Coronary artery disease involving [place] heart without angina pectoris 10/19/2022 Morbid (severe) obesity due to excess calories ([facility]) 11/19/2024 Primary hypertension 10/19/2022 Type 2 diabetes mellitus without complications ([facility]) 11/19/2024 Atherosclerosis of coronary artery [...] DM type 2 (diabetes mellitus, type 2) ([facility]) Hypertension ALEXYS (obstructive sleep apnea) [...] not need HENDERSON. 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 This was abnormal. This led to [...] should problems arise Berny Larson MD, MPH, [facility], [facility], [facility] Interventional Cardiology Pager Email: [email or web address] Berny Larson MD, MPH, [facility], [facility], [facility] Interventional Cardiology Pager Email: [email or web address] [[email or web address]] Family History Problem Relation Name [...] morning and at bedtime., Disp: , Rfl: [facility] 05-02-2024 History of Present illness Narrative Images [...] going back to school to learn computer-aided [employer] 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 His appetite and mood are good. He denies feelings of depression or anxiety. He denies any changes in his sleep. He admits he has not been utilizing his CPAP every night due to his mask not fitting properly and previous electrical issues. The electrical issues are now resolved. He is working with his utilization review coordinator to possibly obtain a new CPAP mask. [...] DM type 2 (diabetes mellitus, type 2) ([facility]) Hypertension ([facility]) ALEXYS (obstructive sleep apnea) Past [...] wrist extensors , wrist flexor , and general matcher strength 5/5. LUE strength deltoid , biceps , triceps , wrist extensors , wrist flexor , and general matcher strength 5/5. RLE strength iliopsoas, quadriceps, tibialis [...] reflex 0. LLE knee reflex 0. Coordination: Liflcs-jo-ejtv testing normal. Rapid alternating movements are normal. Gait: Normal. Review and summary of old records: MOCA score at [facility] on 05/02/24: with 4/5 recall. Vitamin B12 level on 04/14/23: 297. Labs on 03/11/23: GFR 54 (low). TSH on 09/20/22: 2.08. MRI of the brain w and w/o contrast at [facility] on 03/31/23: No acute intracranial process. [...] hyperglycemia, without long-term current use of insulin ([facility]) PLAN: - Follow up closely with primary care provider for adequate blood glucose management Diagnosis and treatment options discussed in detail. All questions answered. The patient verbalizes understanding and is agreeable to the plan. Discussion in layman's terms. Follow up in the office within 6 months; sooner if needed for new or worsening symptoms. Michelle Dillard NP [facility] documented in this encounter [facility] 04-26-2024 Note Cardiology Clinic No te HPI: [...] at this time. He states that his utilization review coordinator told him he should be on lifelong [...] as needed Fahad Chin MD Interventional Cardiology [facility] 09-18-2022 Evaluation note Encounter Date Diagnosis [...] 7 days, sooner if significantly worsening symptoms. [employer] Other 03-20-2023 Evaluation note* Encounter Date Diagnosis [...] the ER for worsening symptoms or concerns [employer] Other 03-07-2023 Evaluation note* Encounter Date Diagnosis [...] J40) Jun, Acute cough (ICD-10 - R05.1) [employer] Other 03-01-2023 History general Narrative - Reported* Type Description Date Medical History hypertension Medical History high cholesterol Medical History COVID 06/2022 Surgical History right and left knee replacement Surgical History 2 stents Hospitalization History see surgical hx [employer] Other Evaluation + Plan note Future Appointments Appointment Date:03/17/2025 08:45:00 AM Scheduled Provider: Location:[facility] Appointment Type:URO Nurse Visit Appointment Date:03/24/2025 09:15:00 AM Scheduled Provider:Raul REHMAN MD Location:[facility] Appointment Type:URO Office Visit Diagnostic Tests Pending * Creatinine 11/25/24 Future Scheduled Tests Laboratory* PSA Free & Total 03/27/25 [facility] evaluation note* Diagnosis Mild cognitive impairment- Primary Mild cognitive impairment, so stated ALEXYS on CPAP Type 2 diabetes mellitus with hyperglycemia, without long-term current use of insulin ([facility]) documented in this encounter [facility] HealthcareEvaluation note* Diagnosis Onset Date Resolution Status Admit Date MCI (mild cognitive impairment) chronic November 12 12:51pm Obstructive sleep apnea chronic A ugust 2024 12:51pm [facility] Work Phone: Evaluation note* Diagnosis Sudden hearing loss of both ears- Primary documented in this encounter [facility] HealthcareEvaluation note* Diagnosis Sensorineural hearing loss (SNHL), bilateral- Primary documented in this encounter [facility] HealthcareHistory general Narrative - Reported* Type Description Date Medical History hypertension Medical History high cholesterol Surgical History right and left knee replacement Surgical History 2 stents Hospitalization History see surgical hx flexReceipts Other Hospital course Narrative No data available for this section [facility] progress note No data available for this section [facility] reason for referral (narrative)No reason for referral information [facility] Work Phone: Chief Complaint and Reason for [...] Care Teams (unrecognized sec tion and content) Catering Manager Relationship Specialty Start Date End Date Muriel Beach MD [address] [place] [address] PCP - General Incising Machine Operator 05/02/24 Cm Cho DO [address] [address] Referring Physician Neurology 05/02/24 Catering Manager Relationship Specialty Start Date End Date Muriel Beach MD [address] [place], [place] [id number] PCP - General Incising Machine Operator 05/02/24 Cm Cho DO [address] [address] Referring Physician Neurology 05/02/24 Team Status: Active Member Role Status Dates FRAN Rodriguez Primary Care Provider Active Team Status: Inactive Member Role Status Dates DIVYA GoncalvesP-C Attending Provider Active Start: November 12, 2024 End: November 12, 2024 FRAN Rodriguez Primary Care Provider Active Start: November 12, 2024 End: November 12, 2024 Catering Manager Relationship Specialty Start Date End Date Muriel Beach MD [address] [place], [place] [id number] PCP - General Incising Machine Operator 05/02/24 Cm Cho DO [address] [address] Referring Physician Neurology 05/02/24 Catering Manager Relationship Specialty Start Date End Date Muriel Beach MD [address] [place] [address] PCP - General Incising Machine Operator 05/02/24 Cm Cho DO [address] [address] Referring Physician Neurology 05/02/24 Catering Manager Relationship Specialty Start Date End Date Muriel Beach MD [address] [place] [address] PCP - General Incising Machine Operator 05/02/24 Cm Cho DO [address] [address] Referring Physician Neurology 05/02/24 Goals (unrecognized section and content) Goals may be documented in a n alternate section (unrecognized sect ion and content) No Status Records FoundNo Status Records FoundNo Status Records Found INFORMATION SOURCE (unrecogn ized section and content) DATE CREATED AUTHOR [facility]/21/2024 [facility] DATE CREATED AUTHOR AUTHOR'S ORGANIZ ATION 11/27/2024 [facility] DATE CREATED AUTHOR AUTHOR'S ORGANIZ ATION 12/01/2024 [facility] FOR RECORDS PERTAINING TO PATIENTS WHO ARE [...] BE BASED ON THE PRIMARY CLINICAL RECORDS. [facility]. provides no warranty or guarantee of the accuracy or completeness of information in this document.
== END 2024-12-10 08:01 | disposition home or self-care (01) ==
LOC: US 08:00
PROVIDERS: Visit Provider Nurse Practitioner Family
DX: R31.21 Asymptomatic microscopic hematuria (principal); N28.1 Cyst of kidney, acquired
CPT/HCPCS: 76775

== ENCOUNTER 2024-12-18 09:13 | Outpatient (OUT) | payer MEDICARE, SELFPAY ==
--- OUTSIDE RECORDS SUMMARY | 2024-10-29 05:00 | XMS_ITS ---
Author Organization [facility] vices Address [address] [place], [place] [phone] Care Team Providers Care Program Director Substance Abuse Name Role Phone Muriel Beach Primary Care Provider [phone] REASON FOR VISIT ear issues, having trouble hearing Social History Sex Assigned At : Social History Observation Description Sex Assigned At Male Encounters Encounter Location Date Provider Diagnosis Main [address] [place], [place] [id number] 10/29/2024 Muriel Beach Plan Of Treatment Next Appt Details Provider Name:Muriel Beach , 02/06/2025 08:30:00 AM, [address] [place], [phone], Progress Notes * Stan SWAIN RDOB:1950 (74 yo M)Acc No.[id number]:10/29/2024 Medical Note Patient: Stan THOMAS Provider: Luz Beach :1950 A ge:74 Y S ex:Male Date:10/29/2024 Address:[address] [place], [place] [id number] Subjective: * Chief Complaints: * 1 . Ear issues, having trouble hearing. * Medical History: Objective: * Vitals: Assessment: Plan: * Treatment: * Billing Information: * Visit Code: * Procedure Codes: * Electronic signature of JHON Angel sa on 12/18/2024 at 09:15 AM EDT Sign off status: Pending * Provider: Luz Beach Date: 0 10/29/2024 Generated for Ke saez/Saúl/Liz on: 0 12/18/2024 09:15 AM EDT
--- OUTSIDE RECORDS SUMMARY | 2024-12-05 06:17 | XMS_ITS ---
Author Organization [facility] vices Address [address] [place], [place] [id number] Care Team Providers Care Door Clamper Name Role Phone Muriel Beach Primary Care Provider REASON FOR VISIT CT Abdomen Incidental Finding Social History Sex Assigned At : Social History Observation Description Sex Assigned At Male Problems Problem Type SNOMED Code ICD Code Onset Dates Problem Status W/U Status Risk Notes Problem Solitary pulmonary nodule (606560356) Right lower lobe pulmonary nodule (R91.1) Active confirmed Encounters Encounter Location Date Provider Diagnosis Main [address] [place], [place] [id number] 12/05/2024 Muriel Beach Right lower lobe pulmonary nodule R91.1 Assessments Encounter Date Diagnosis (ICD Code) Assessment Notes Treatment Notes Treatment Clinical Notes Section Notes 12/05/2024 Right lower lobe pulmonary nodule (ICD-10 - R91.1) Plan Of Treatment Pending Test Test Name Order Date CHEST WO CONT 12/05/2024 Next Appt Details Provider Name:Muriel Beach , 02/06/2025 08:30:00 AM, [address] [place], [id number], Progress Notes * Stan SWAIN RDOB:1950 (74 yo M)Acc No.[id number]:12/05/2024 Patient: Stan THOMAS :1950 A ge:74 Y S ex:Male Address:[address] [place] [phone] Subjective: * Chief Complaints: * C T Abdomen Incidental Finding * Medical History: * Surgical History: * Hospitalization/Major Diagno stic Procedure: * Medications: Objective: * Vitals: * Physical Examination: Assessment: * Assessment: 1. R ight lower lobe pulmonary nodule - R91.1 (Primary) Plan: * Treatment: * * Procedure Codes: * true * Date: Generated for Ke saez/Saúl/Mickeyitting on: 0 12/18/2024 09:15 AM EDT
--- OUTSIDE RECORDS SUMMARY | 2024-12-18 09:15 | XMS_ITS | Patient Health Record ---
Author Organization [facility] are Address [address] [place] [address] Care Team Providers Care Plastic Panel Installer Name Role Phone NOE LIRIANO MD Primary Care Provider Salvador arshad RUEL GORAN Unavailable [phone] Allergies Allergen (clinical drug ingredient) Drug/Non Drug [...] Status Risk Notes Problem Benign prostatic hyperplasia (657067960) BPH (benign prostatic hyperplasia) (N40.0) Active confirmed Problem Microscopic hematuria (573258088) Benign microscopic hematuria (R31.1) Active confirmed Problem Elevated PSA (292806450) Elevated PSA (R97.20) Active confirmed Plan Of Treatment Pending Test Test Name Order Date PSA, total 10/17/2018 CT UROGRAM (triple phase CT) ADD BUN AND CREATINE 10/17/2018 Insurance Providers Payer Name Payer Address Payer Phone Subscriber Number Group Number Insured Name Patient Relationship to Insured Coverage Start Date Coverage End Date [employer] [address] [address] [place] [address] [id number] GREGORY HENDERSON Self - patient is the insured Medical (General) History Medical History History ICD Code arthritis heart disease Surgical History Surgery Date(Month/Year) left knee 2006 right knee 2007 broken left foot. 2007 Hospitalization History Reason Date(Month/Year) heart catheter 2017
--- OUTSIDE RECORDS SUMMARY | 2024-12-18 09:15 | XMS_ITS | Clinical Summary ---
Author Organization [facility] Address [address] [place] [address] Care Team Providers Care Vat Tender Name Role Phone Radha Shetty Primary Care Provider [phone] Fahad Chin MD Unavailable [phone] Allergies Active Allergy Reactions Criticality Noted Date [...] impairment 10/18/2023 Coronary artery disease invo lving [place] heart without angina pectoris 10/19/2022 10/19/2022 Primary hypertension 10/19/2022 10/19/2022 Encounters Date Type Department Care Team Description 11/29/2024 Telephone [facility] [address] [place] [facility] [place] [address] Olena Mcclendon MA 11/29/2024 Telephone [facility] [address] [place] [facility] [place] [address] Olena Mcclendon MA 11/29/2024 Telephone [facility] [address] [place] [facility] [place] [address] Olena Mcclendon MA 11/01/2024 Orders Only [facility] [address] [place] [facility] [place] [address] Lauren Marie MA Essential hypertension (Primary Dx) 10/31/2024 Telephone [facility] [address] [place] [facility] [place] [address] Lauren Marie MA 10/29/2024 Orders Only [facility] [address] [place] [facility] [place] [address] Provider, MD Lorena 10/24/2024 Orders Only [facility] [address] [place] [facility] [place] [address] Provider, MD Lorena 10/10/2024 9:15 AM EDT Office Visit [facility] [address] [place] [facility] [place] [address] Berny Larson MD Silent myocardial ischemia (Primary Dx); Coronary artery disease involving [place] coronary artery of [place] heart without angina pectoris; Dyslipidemia; Benign hypertensive heart disease without congestive heart failure 10/10/2024 Orders Only [facility] [address] [place] [facility] [place] [address] Olena Mcclendon MA Chest pain, unspecified type (Primary Dx) 10/10/2024 Orders Only [facility] [address] [place] [facility] [place] [address] Olena Mcclendon MA Essential hypertension (Primary Dx) [...] Description 02/12/2025 9:15 AM EST Office Visit [facility] [address] [place] [address] Berny Larson MD [address] [facility] [place] [address] Health Maintenance Due Date Last [...] l Result from Last 3 Months Insurance [facility] MEDICARE ADVANTAGE Care Teams Vat Tender Relationship Specialty Start Date End Date Radha Shetty [address] PCP - General 10/19/22 Fahad Chin MD [address] [place] [address] Cardiology 10/19/22
--- OUTSIDE RECORDS SUMMARY | 2024-12-18 09:16 | XMS_ITS | Patient Health Record ---
Author Organization [facility] Address [address] [place] [address] Care Team Providers Care Information Systems Professor Name Role Phone Osei Renee Primary Care Provider Amber Persaud MD, Veronica Unavailable Reason For Referral No Information Plan Of Treatment No Information Insurance Providers Payer Name Payer Address Payer Phone Subscriber Number Group Number Insured Name Patient Relationship to Insured Coverage Start Date Coverage End Date [employer] FFS [address] [address] [place] [address] [id number] GREGORY HENDERSON Self - patient is the insured
--- OUTSIDE RECORDS SUMMARY | 2024-12-18 09:16 | XMS_ITS | Patient Health Record ---
Author Organization [facility] Address [address] [place], [place] [address] Care Team Providers Care Facility Mechanic Name Role Phone Jayce Curtis MD Primary Care Provider Reason For Referral No Information Plan Of Treatment No Information
--- OUTSIDE RECORDS SUMMARY | 2024-12-18 09:16 | XMS_ITS | Patient Health Record ---
Author Organization [facility] Address [address] [place], [place] [id number] Care Team Providers Care Nonprofit Fundraiser Name Role Phone Muriel Beach Primary Care Provider Preston Trejo Unavailable [phone] Ly Banuelos Unavailable [phone] Autumn Emanuel Unavailable Hemal Romeroa Unavailable [phone] Allergies Allergen (clinical drug ingredient) Drug/Non Drug Allergy documented on EMR Reaction Allergy Type Onset Date Status lisinopril Lisinopril Unknown Drug Allergy Activ e sulfacetamide Sulfacetamide rash Drug Allergy Active Results Component Value Reference Range Notes US renal BI Reviewed date:12/12/2024 05:01:02 PM Interpretation: Performing Lab: Notes/Report: Source Facility: [place] [address] Ultrasound Report Signed Patient: GREGORY SWAIN MR#: [id number] : 1950 Acct:[id number] Age/Sex: 74 / M ADM Date: 12/10/24 Loc: US Attending Dr: Vanessa Rodrigues ASSEMBLING MOTOR BUILDER Ordering Physician: Vanessa Rodrigues NP Date of Service: 12/10/24 Procedure(s): US renal BI Accession Number(s): [id number] cc: Vanessa Rodrigues ASSEMBLING MOTOR BUILDER; Muriel Beach ASSEMBLING MOTOR BUILDER [place] [id number] Patient Name: GREGORY SWAIN MRN: [id number] date: 1950 Sex: M Assigned Patient Location: US Current Patient Location: Accession/Order Number: [id number] Exam Date: 12/10/2024 08:04 Report Date: 12/10/2024 11:14 At the request of: VANESSA RODRIGUES NP Procedure: US renal BI BILATERAL RENAL AND BLADDER ULTRASOUND CLINICAL HISTORY: Asymptomatic Microscopic Hematuria COMPARISON: CT 12/04/2024 Estimation of renal size is approximately 10.2 cm on the right and 11.6 cm on the left. No shadowing calculi or hydronephrosis are identified. The mechanic helper identified at least one tiny left upper pole renal cyst measuring 7 mm. At the inferior cortex on that side, there is a 2.4 x 2.0 x 1.8 cm hypoechoic area that has associated blood flow. It is uncertain if this correlates with the CT finding. It is not definitely cystic. There is no perinephric fluid. The urinary bladder is partially distended with a volume of 60 mL. The bladder wall appears slightly thickened. US/US renal BI IMPRESSION: NO OBSTRUCTIVE UROPATHY. TINY LEFT RENAL CYST AND INDETERMINATE HYPOECHOIC AREA, POSSIBLY CORRELATING WITH THE CT FINDING. FOLLOW-UP CT COULD BE OBTAINED TO ASSESS STABILITY. MRI WITHOUT AND WITH CONTRAST COULD ALSO BE CONSIDERED, IF FURTHER EVALUATION IS WARRANTED AT THIS TIME. APPARENT URINARY BLADDER WALL THICKENING. THIS WAS ALSO SEEN AT THE TIME OF THE CT STUDY. Impression dictated by: Zoila Betancourt M.D. 12/10/2024 11:14 AM Dictation Location: [place] [address] Electronically authenticated by: [id number] Y Date: 12/10/2024 11:14 Dictated By: Zoila Betancourt M.D. Signed By: 12/10/24 1117 DD/ 1114 TD/TT: Youth Development Specialist: CADEN Still Reviewed date:08/06/2024 08:41:10 AM Interpretation: Performing Lab: Notes/Report: CT abdomen pelvis wo con Reviewed date:12/05/2024 10:24:48 AM Interpretation: Performing Lab: Notes/Report: Source Facility: [place] [address] [address] [place] [id number] Scan Report Signed Patient: GREGORY SWAIN MR#: [id number] : 1950 Acct:[id number] Age/Sex: 74 / M ADM Date: 12/04/24 Loc: LAB Attending Dr: Raul Rehman M.D. Ordering Physician: Raul Rehman M.D. Date of Service: 12/04/24 Procedure(s): CT abdomen pelvis wo/w con Accession Number(s): [id number] cc: Muriel Beach NP [place] [address] Patient Name: GREGORY SWAIN MRN: [id number] date: 1950 Sex: M Assigned Patient Location: LAB Current Patient Location: LAB Accession/Order Number: [id number] Exam Date: 12/04/2024 08:30 Report Date: 12/04/2024 [...] Betancourt M.D. 12/04/2024 9:40 AM Dictation Location: [place] [address] Electronically authenticated by: [id number] Y Date: 12/04/2024 09:40 Dictated By: Zoila Betancourt M.D. Signed By: 12/04/24 0943 DD/ 0940 TD/TT: Youth Development Specialist: Creatinine Reviewed date:12/05/2024 10:16:52 AM Interpretation: Performing Lab: Notes/Report: , [facility] Creatinine 1.29 0.70-1.30 mg/dL Estimated GFR ( Stefanie >60 >=60 mL/min/1.73m 2 Estimated GFR (Non- Yaz 54 >=60 mL/min/1.73m 2 Performing Lab: see note ML - [facility] LB NM jenny perf SPECT rest str Reviewed date:10/29/2024 11:27:54 AM Interpretation: Performing Lab: Notes/Report: Source Facility: [facility] [place] [address] [place] [address] Nuclear Medicine Report Signed Patient: GREGORY SWAIN MR#: [id number] : 1950 Acct:[id number] Age/Sex: 74 / M ADM Date: 10/28/24 Loc: [place] Attending Dr: Berny Escobedo M.D. Ordering Physician: Berny Escobedo M.D. Date of Service: 10/28/24 Procedure(s): NM jenny perf SPECT rest str Accession Number(s): [id number] cc: Berny Escobedo M.D.; Muriel Beach NP Patient Name: GREGORY SWAIN MR#: [id number] : 1950 Exam Date: 10/28/2024 Ordering Doctor: [...] the study was pending per attending physician [facility]. For more details, please see separate cardiac [...] M.D. Signed By: 10/29/24911 DD/ 1 TD/TT: Youth Development Specialist: Basic Metabolic Panel Reviewed date:10/25/2024 11:43:29 PM Interpretation: Performing Lab: Notes/Report: , [facility] Sodium 143 136-145 mmol/L Potassium 3.6 3.5-5.1 [...] mg/dL Performing Lab: see note ML - [facility] LB HEMOGLOBIN A1C Reviewed date:01/29/2024 08:34:00 AM Interpretation: Performing Lab: Notes/Report: HEMOGLOBIN A1C 6.1 <5.7 % Prediabetes: 5.7% to 6.4% Diabetes: >6.4% Glycemic control for adults with diabetes: <7.0% Use with caution in patients with abnormal hemoglobin variants as the half-life of red blood cells and in vivo glycation rates are affected. UNLESS OTHERWISE INDICATED, ALL TESTING PERFORMED AT: [facility] [employer] [address] [place] [address] LUMBER CHECKER: ROMELIA MARTE M.D. CLIA NUMBER [id number] CAP ACCREDITATION AUID [id number] Changes in testing location may be associated [...] ALBUMIN 4.2 3.5-5.2 g/dL POCT A1C Reviewed date:11/06/2024 10:39:02 AM Interpretation: Performing Lab: Notes/Report: PSA, TOTAL, 3RD GENERATION Reviewed date:11/08/2024 10:51:50 [...] UNLESS OTHERWISE INDICATED, ALL TESTING PERFORMED AT: [facility] [employer] [address] [place] [address] LUMBER CHECKER: ROMELIA MARTE M.D. CLIA NUMBER [id number] CAP ACCREDITATION AUID [id number] MICROALBUMIN RANDOM SPEC Reviewed date:11/08/2024 10:51:50 AM Interpretation: Performing Lab: Notes/Report: INTERPRETATIVE GUIDE NORMAL........................ 0-29 MODERATELY INCREASED.......... 30-300 SEVERELY INCREASED............ >300 CREATININE,UR 174.9 NOT ESTAB mg/dL Reference interval for random urine samples has not been established. MICROALBUMIN 51.8 Note: Test name is changed to Urine Albumin from Microalbumin in accordance with ADA and NFK Guidelines, and Albumin/Creatinine ratio reference interval reflects those Guidelines. Analytic methodology is unchanged. No reference interval for Random Urine Albumin is available. MICROALB/CREAT RATIO 30 <30 mG/G Reason For Referral Reason Would like hearing [...] First Name Muriel Referring Provider Last Name [facility] Referred Provider [facility] jasminprashanth Referred Provider Specialty Urology General Notes Roxanna Talbert 11/02 06:34:56 PM >see scanned document Referral Priority Routine Referral Appointment Date 11/25/2024 Medications Medication SIG (Take, Route, Frequency, Duration) Notes Start Date End Date Status Atorvastatin Calcium 80 MG 1 tablet Oral Once a day; Duration: 90 days Active hydroCHLOROthiazide 25 MG TAKE 1 TABLET EVERY MORNING; Duration: 90 Active Blood Glucose Test Strip - 1 test strip once daily In Vitro; Duration: 90 days *whatever brand is covered by insurance 11/09/2022 Active Metoprolol Tartrate 50 MG TAKE 1 TABLET TWICE DAILY WITH FOOD; Duration: 90 Active Clopidogrel Bisulfate 75 MG 1 tablet Oral Once a day; Duration: 90 days Active Lancets - 1 lancet once a day; Duration: 90 days *whatever brand is covered by insurance TRUEPLUS 33G LANCET 11/09/2022 Active Aspirin Adult Low Dose 81 [...] work (ex. 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 Stress is when someone feels tense, nervous, anxious, or can't sleep at night because their mind is troubled Not at all patient entered data In the past year have you sp ent more than 2 nights in a row in a nursing home, shelter, residential center, or juvenile correctional facility? No patient [...] Problem Type II diabetes mellitus without complication (540794367) Type 2 diabetes mellitus without complication, without long-term current use of insulin (E11.9) Active confirmed Problem Lower urinary tract symptoms due to benign prostatic hypertrophy (20664733357290) Benign prostatic hyperplasia with lower urinary tract symptoms (N40.1) Active confirmed Problem Amnesia (97897016) Memory change s (R41.3) Active confirmed Problem Hypertriglyceridemia (106007543) Hypertriglyceridemia (E78.1) Active confirmed Problem Obese class II (788709834457575) BMI 37.0-37.9, adult (Z68.37) Active confirmed Problem 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) Low HDL (under 40) (E78.6) Active confirmed Problem Hearing loss (33270579) Hearing difficulty of both ears (H91.93) Active confirmed Problem Solitary pulmonary nodule (200924967) Right lower lobe pulmonary nodule (R91.1) Active confirmed Problem Primary hypertension (01980538) Primary hypertension (I10) Active confirmed Problem Chronic kidney disease stage 3A (285283404) Stage 3a chronic kidney disease (N18.31) Active confirmed Problem Atherosclerotic hear t disease of [place] coronary artery without angina pectoris (734249820334883) Coronary artery disease involving [place] heart without angina pectoris, unspecified vessel [...] AM EDT > Oximetry 96 % 11/06/2024 Maribel Stephencey 11/06/2024 08:29:20 AM EDT > Height-cm 162.56 cm 11/06/2024 Payton Stephen 11/06/2024 08:29:20 AM EDT > Weight-kg 104.51 kg 11/06/2024 Felizlg Payton 11/06/2024 08:29:20 AM EDT > Height 64 in 11/06/2024 Payton Stephen 11/06/2024 08:29:20 AM EDT > Blood pressure systolic 111 mm Hg 11/06/2024 Payton Diallo 11/06/2024 08:29:20 AM EDT > Weight 230.4 lbs 11/06/2024 Payton Stephen 11/06/2024 08:29:20 AM EDT > BMI 39.54 kg/m2 11/06/2024 FelizGina castanony 11/06/2024 08:29:20 AM EDT > Procedures Procedure Date Ordered Date Performed Result Body Sit e EAR IRRIGATION 11/06/2024 11/06/2024 N/A Encounters Encounter Location Date Provider Diagnosis [address] [facility] [place] [id number] 02/01/2024 [facility] Type 2 diabetes kings itus without complication, without long-term current use of insulin E11.9 ; Primary hypertension I10 ; Impacted cerumen, right ear H61.21 ; Body mass index [BMI] 36.0-36.9, adult Z68.36 and Morbid (severe) obesity due to excess calories E66.01 Main [address] [place] [id number] 08/06/2024 [facility] Type 2 diabetes kings itus without complication, without long-term current use of insulin E11.9 ; Primary hypertension I10 ; Hypertriglyceridemia E78.1 ; Stage 3a chronic kidney disease N18.31 ; Severe obesity (BMI >= 40) E66.01 and BMI 40.0-44.9, adult Z68.41 Main [facility] [address] [place] [id number] 10/28/2024 [facility] BMI 39.0-39.9,adult Z68.39 ; Hearing difficulty of both ears H91.93 and Obesity (BMI 30-39.9) E66.9 Main [address] [place] [id number] 11/06/2024 [facility] Type 2 diabetes kings itus without complication, without long-term current use of insulin E11.9 ; Primary hypertension I10 ; Hearing difficulty of both ears H91.93 ; Benign prostatic hyperplasia with lower urinary tract symptoms N40.1 ; Impacted cerumen of right ear H61.21 ; BMI 39.0-39.9,adult Z68.39 and Obesity (BMI 30-39.9) E66.[address] [address] 01/15/2024 Ly Lakisha [facility] [address] [facility] [place] [id number] 03/06/2024 [facility] Type 2 diabetes kings itus without complication, without long-term current use of insulin E11.9 [facility] [address] [place] [id number] 05/13/2024 [facility] Type 2 diabetes kings itus without complication, without long-term current use of insulin E11.9 [facility] [address] [place] [id number] 05/13/2024 [place] [address] [place] [id number] 05/13/2024 [facility] Type 2 diabetes kings itus without complication, without long-term current use of insulin E11.9 [facility] [address] [place] [id number] 10/09/2024 [place] [address] [address] [place] [id number] 11/08/2024 [facility] Elevated PSA R97.20 [place] [address] [address] [place] [id number] 12/05/2024 Muriel Beach Right lower lobe pul monary nodule R91.1 Main [address] [place] [id number] 12/10/2024 Muriel Beach Type 2 diabetes kings itus without complication, without long-term current use of insulin E11.9 Main [address] [place] [id number] 12/10/2024 Muriel Beach Type 2 diabetes kings itus without complication, without long-term current use of insulin E11.9 Assessments Encounter Date Diagnosis (ICD Code) Assessment Notes Treatment Notes Treatment Clinical Notes Section Notes 02/01/2024 Type 2 diabetes mellitus without complication, [...] lower lobe pulmonary nodule (ICD-10 - R91.1) 12/10/2024 Type 2 diabetes mellitus without complication, without long-term current use of insulin (ICD-10 - E11.9) 12/10/2024 Type 2 diabetes mellitus without complication, without long-term current use of insulin (ICD-10 - E11.9) 11/06/2024 Hearing difficulty o f both ears [...] Name:Muriel Beach , 02/06/2025 08:30:00 AM, [address] [facility] [facility], [id number], Insurance Providers Payer Name Payer Address Payer Phone Subscriber Number Group Number Insured Name Patient Relationship to Insured Coverage Start Date Coverage End Date [facility] Medicare [address] [address] [place] [address] [id number] Gergory Swain Self - patient is the insured 3 Medical (General) History Medical History History ICD Code Hypertension Coronary Artery Disease Benign Prostatic Hypertrophy Low HDL Surgical History Surgery Date(Month/Year) right knee replacement 2017 left knee replacement 2020 left foot surgery, pins 2007 pylocyst 1970 2 heart cath/stent 2016 Hospitalization History Reason Date(Month/Year) [place] Palsy 07/2021
--- OUTSIDE RECORDS SUMMARY | 2024-12-18 09:16 | XMS_ITS | Clinical Summary ---
Author Organization [facility] Healthcare Address [address] [place] [address] Care Team Providers Care Boat Cleaner Name Role Phone Muriel Beach MD Primary Care Provider [phone] Cm Cho DO Unavailable [phone] Allergies Active Allergy Reactions Criticality Noted Date [...] impairment 10/18/2023 Coronary artery disease invo lving grayling heart without angina pectoris 10/19/2022 Primary hypertension 10/19/2022 Encounters Date Type Department Care Team Description 11/20/2024 10:00 AM EDT Office Visit [facility] [address] [place] [address] Jaqueline Frye MD Sensorineural hearing loss (SNHL), bilateral (Primary Dx) 11/20/2024 Travel 11/19/2024 3:00 PM EDT Clinical Support [facility] [address] [place] [address] Olena Dobson CCC-A Sudden hearing loss of both ears (Primary Dx) 11/19/2024 Bamboo flowsheet [facility] [address] [place] [address] Olena Dobson CCC-A from Last 3 Months [...] Clinical Support [facility] [address] [facility] [address] [place] [phone] Olena Dobson CCC-A [address] [facility] [place] [address] 05/27/2025 8:00 AM EST Office Visit [facility] [address] [facility] [address] [place] [address] Jaqueline Frye MD [address] [facility] [address] [place] [address] Health Maintenance Due Date Last Done Comments [...] Months Insurance [employer] Care Teams Boat Cleaner Relationship Specialty Start Date End Date Muriel Beach MD [address] [place] [address] PCP - General Digital Learning Platform[employer] Manager 05/02/24 Cm Cho DO [address] [address] Referring Physician Neurology 05/02/24
--- NOTE | 2024-12-18 09:17 | CT_ITS ---
The [address] [address] Patient Name: GREGORY HENDERSON MRN: [id number] date: 1950 Sex: M Assigned Patient Location: CT Current Patient Location: CT Accession/Order Number: [id number] Exam Date: 12/18/2024 09:20 Report Date: 12/18/2024 10:10 At the request of: ROSMERY GRIGSBY NP Procedure: CT chest wo con CT CHEST WITHOUT CONTRAST CLINICAL DATA: Follow-up right lower lobe pulmonary nodule. COMPARISON: CT abdomen 12/04/2024 Spiral images were obtained through the chest without contrast. Images were reviewed using both narrow and wide window settings. This CT exam was performed using one or more following dose reduction techniques: Automated exposure control, adjustment of the mA and/or kV according to patient size, or use of iterative reconstruction technique. The heart is borderline prominent. There is no pericardial effusion. Minor coronary disease is seen. The ascending aorta is slightly ectatic. There is potential mild nodularity at the inferior left thyroid lobe. There are no pathologically enlarged mediastinal lymph nodes. Minor gynecomastia is seen. There is slight dextroscoliotic curvature and degenerative changes at the spine. No consolidation, pleural effusion or pneumothorax is identified. An 8 mm right lower lobe nodule is again visualized at the site of concern on the comparison abdominal CT. The nodule is calcified and therefore likely a granuloma. No other pulmonary nodularity is seen. Limited imaging through the upper abdomen shows no contributory findings. CT/CT chest wo con IMPRESSION: RIGHT LOWER LOBE CALCIFIED GRANULOMA. NO FURTHER FOLLOW-UP IS WARRANTED. NO ACUTE INTRATHORACIC FINDINGS. Impression dictated by: Zoila Betancourt M.D. 12/18/2024 10:10 AM Dictation Location: [facility] Electronically authenticated by: [id number] Date: 12/18/2024 10:10
--- OUTSIDE RECORDS SUMMARY | 2024-12-18 09:20 | XMS_ITS | CCD ---
Author Organization [facility] ion [facility] Care Team Providers Care Technology Consultant Name Role Phone Kayley Malia Unavailable Pattie Janna Unavailable Baylee VILLEGAS, Muriel Primary Care Provider [phone] Cm Cho DO Unavailable Nishant COOPER-SECURITY DELIVERY SPECIALIST-CMichelle Attending Provider Balyee TUBE AND ROD STRAIGHTENER-C, Faisal Gonzalez Primary Care Provider [phone] Cm Cho DO Unavailable [phone] MICHELLE DILLARD Attending Unavailable OLENA DOBSON Attending Unavailable JAQUELINE THACKER Attending Unavailable BAYLEE MURIEL Primary Care Physician FAHAD CHIN Attending Unavailable BERNY LARSON Attending Unavailable BAYLEE, MURIEL Primary Care Unavailable Raul REHMAN Attending Unavailable BAYLEE, MURIEL Primary Care Unavailable Raul REHMAN Attending Unavailable BAYLEE, MURIEL Primary Care Unavailable Raul REHMAN Attending Unavailable BAYLEE, MURIEL Referring Unavailable BAYLEE, MURILE Primary Care Unavailable Allergies Allergy Classification Reported Allergen(s) Allergy Type Date of Onset Reaction(s) Facility (10 sources) Substance with sulfonamide structure and antibacterial mechanism of action (substance) Drug allergy [address] [facility] (5 sources) Lisinopril; Translations: [lisinopril] Drug Allergy 5 [facility] (1 source) Sulfonamides (Antibiotic) Allergy to substance 5 [facility] (2 sources) Sulfonamide; Translations: [sulfa drugs] Drug allergy [facility] (1 source) Sulfacetamide; Translations: [SULFACETAMIDE] Drug Allergy 3 [facility] Repository Medications Current Medications Medication [...] Active Start: 06-20-2022 take 1 capsule by [facility] every eight hours Benzonatate 200 MG 1 capsule Orally Three times a day prn cough Jun, Active Start: 06-07-2022 take 1 capsule by [facility] every eight hours Tessalon Perles 100 [...] day(s), # 28 cap(s), Refills(s) 0, Pharmacy: [id number], 162, cm, 11/25/24 10:20:00 EDT, Height/Length Dosing, 102.9, kg, 11/25/24 10:20:00 EDT, Weight Dosing Start Date: 11/25/24 Stop Date: 12/09/24 Status: Ordered Quantity: 28.0 Unit: cap(s) Repeat number: 1 Start: 06-20-2022 take 1 capsule by [facility] every twelve hours Doxycycline Hyclate 100 MG 1 capsule Orally Twice a day for 10 Jun, Active dutasteride 0.5 mg oral capsule (1 source) 5-alpha Reductase Inhibitor Start: 11-25-2024 take 1 capsule by mouth once daily dutasteride 0.5 mg Cap 0.5 mg = 1 cap(s), Oral, Daily, # 90 cap(s), Refills(s) 3, Pharmacy: [facility], 162, cm, 11/25/24 10:20:00 [...] BID, # 90 cap(s), Refills(s) 3, Pharmacy: [facility], 162, cm, 11/25/24 10:20:00 [...] Coronary arteriosclerosis; Translations: [Atherosclerotic heart disease of enterprise coronary artery without angina pectoris] Onset: 10-19-2022 [...] Test Name Value Interpretation Reference Range Facility Reminderson 12-13-2024 Reminders Reminders From: Marcelle De Los Santos To: [facility] - Recalls Rehman; Sent: 12/13/2024 13:06:49 EDT Show up: 04/03/2025 13:06:00 EST Subject: MRI/PSA Due Date/Time: 05/26/2025 13:06:00 EST Reminder/Recall Patient needs ABD MRI w/wo Attn: 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 Normal [facility] Telephoneon 11-29-2024 Telephone [id number] Gregory Swain 1950 Date Provider Department Center 11/29/2024 [id number] RASMUSSEN Hos Family History Problem Relation Age of Onset Pancreatitis Mother Supraventricular tachycardia Mother Atrial fibrillation Mother Family Status - Relation Status Age at Mother Father [facility] Ambulatory Visit Summaryon 0 11-25-2024 Ambulatory Visit Summary Ambulatory Visit Summary GREGORY SWAIN :1950 Visit Date:11/25/2024 Ambulatory Visit Instructions Your Diagnosis Elevated PSA BPH with obstruction/lower urinary tract symptoms Asymptomatic microscopic hematuria Prostatitis Your Care Team Attending Physician - Raul REHMAN MD Primary Care Physician - MURIEL BEACH Referring [...] Follow Up with PILAR VILLEGAS, Raul Francis, URL When: Comments: 4 mos Where: [address] [place] [address] Medications What How Much When Instructions Unchanged [...] ??? (more content not included)... Normal [facility] Urology Office/Clinic Noteon 11-25-2024 Urology [...] Dutasteride 0.5 mg qd. Rx sent to [facility]. -F/u in 4 mos 3. 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 UA shows small blood. Denies ever experiencing gross hematuria. States he had a cystoscopy done ~5 yrs ago by urologist in [place], [place] for microscopic hematuria. Denies recent urologic [...] Contact Information PILAR VILLEGAS, Raul Francis, URL [address] [place] [address] Additional Instructions: 4 mos w/ PSA Patient Education Prostatitis Albertina Noe, personally scribed for Dr. Rehman on 11/25/2024 11:07:00. . Documentation recorded by the scribe, Albertina Strong, accurately reflects the services(s) I performed and [...] 1 tab(s) (more content not included)... Normal [facility] Comment on above: Result Comment: Electronically Signed By : Raul REHMAN MD\.br\Date and Time Signed: 11/25/24 11:09 EDT\.br\Electronically Co-Signed By: Albertina Strong.br\Date and Time Co-Signed: 11/25/24 11:07 EDT Auditory function testson Right Ear: Mild to moderate sensorineural hearing loss above 2K Hz. Left Ear: Mild to severe sensorineural hearing loss above 2K Hz. [facility] Orders Onlyon 10-29-2024 Orders Only [id number] Gregory Swain 1950 [facility] Provider Department Center 10/29/2024 [id number], HISTORICAL CARD [facility] Family History Problem Relation Age of Onset Pancreatitis Mother Supraventricular tachycardia Mother Atrial fibrillation Mother Family Status - Relation Status Age at Mother Father Normal [facility] Orders Onlyon 10-24-2024 Orders Only [id number] Gregory Swain 1950 M [facility] Provider Department Center 10/24/2024 [id number], HISTORICAL CARD [place] [facility] Family History Problem Relation Age of Onset Pancreatitis Mother Supraventricular tachycardia Mother Atrial fibrillation Mother Family Status - Relation Status Age at Mother Father Normal [facility] Office Visiton 10-10-2024 Follow-up visit [id number] Gregory Swain 1950 M Date Provider Department Center 10/10/2024 [id number] CARD [facility] Family History Problem Relation Age of Onset Pancreatitis Mother Supraventricular tachycardia Mother Atrial fibrillation Mother Family Status - Relation Status Age at Mother Father Level of Service:88806 ME OFFICE/OUTPATIENT ESTABLISHED MOD MDM 30 MIN Normal [facility] Office Visiton 04-26-2024 Follow-up visit [id number] Gregory Swain 1950 M Date Provider Department Center 04/26/2024 [id number] TONY CARD [facility] Family History Problem Relation Age of Onset Pancreatitis Mother Supraventricular tachycardia Mother Atrial fibrillation Mother Family Status - Relation Status Age at Mother Level of Service:99371 ME OFFICE/OUTPATIENT ESTABLISHED LOW MDM 20 MIN Normal [facility] COVID Quick Testingon 2022 Result Negative [facility] Other Quick Strepon 09-18-2022 S. pyogenes Org specific cx Ql (Throat) Negative [facility] Other Quick Strep [facility] Other COVID + FLU Quick Testingon 06-07-2022 SARS-CoV-2 (COVID-19) RNA LEANN+probe Ql (Unsp spec) Positive [facility] Other COVID + FLU Quick Testing Negative [facility] Other Vital Signs Date Time Vital Sign Value Performing Clinician Facility 11-20-2024 09:43-0400 Body height 162.6 cm Jaqueline Thacker MD Work Phone: [facility] 11-20-2024 09:43-0400 Body mass index (BMI) [Ratio] 39.48 kg/m2 Jaqueline Thacker MD Work Phone: [facility] 11-20-2024 09:43-0400 Body weight 104.33 kg Jaqueline Thacker MD Work Phone: [facility] 11-20-2024 09:43-0400 Diastolic blood pressure 63 mm[Hg] Jaqueline Thacker MD Work Phone: [facility] 11-20-2024 09:43-0400 Heart rate 70 /min Jaqueline Thacker MD Work Phone: [facility] 11-20-2024 09:43-0400 Systolic blood pressure 112 mm[Hg] Jaqueline Thacker MD Work Phone: [facility] 11-12-2024 13:00-0400 Body height 162.56 cm Alyssaa Baylee TUBE AND ROD STRAIGHTENER-C Work Phone: [facility] 11-12-2024 13:00-0400 Body mass index (BMI) [Ratio] 39.1 kg/m2 Alyssaa Baylee TUBE AND ROD STRAIGHTENER-C Work Phone: [facility] 11-12-2024 13:00-0400 Body weight 103.41 kg Alyssaa Baylee TUBE AND ROD STRAIGHTENER-C Work Phone: [facility] 11-12-2024 13:00-0400 Diastolic blood pressure 88 mm[Hg] Alyssaa Baylee TUBE AND ROD STRAIGHTENER-C Work Phone: [facility] 11-12-2024 13:00-0400 Heart rate 58 /min Alyssaa Baylee TUBE AND ROD STRAIGHTENER-C Work Phone: [facility] 11-12-2024 13:00-0400 Respiratory rate 16 /min Alyssaa Baylee TUBE AND ROD STRAIGHTENER-C Work Phone: [facility] 11-12-2024 13:00-0400 SaO2% (BldA) [Mass fraction] 98 % Alyssaa Baylee TUBE AND ROD STRAIGHTENER-C Work Phone: [facility] 11-12-2024 13:00-0400 Systolic blood pressure 130 mm[Hg] Alyssaa Baylee TUBE AND ROD STRAIGHTENER-C Work Phone: [facility] 05-02-2024 15:25-0500 Body mass index (BMI) [Ratio] 39.48 kg/m2 Michelle Dillard TUBE AND ROD STRAIGHTENER Work Phone: [facility] [employer] 05-02-2024 15:25-0500 Body weight 104.33 kg Michelle Dillard TUBE AND ROD STRAIGHTENER Work Phone: [facility] [employer] 05-02-2024 15:25-0500 Diastolic blood pressure 72 mm[Hg] Michelle Dillard TUBE AND ROD STRAIGHTENER Work Phone: [facility] [employer] 05-02-2024 15:25-0500 Heart rate 61 /min Michelle Dillard TUBE AND ROD STRAIGHTENER Work Phone: [facility] [employer] 05-02-2024 15:25-0500 SaO2% (BldA) [Mass fraction] 98 % Michelle Dillard TUBE AND ROD STRAIGHTENER Work Phone: [facility] [employer] 05-02-2024 15:25-0500 Systolic blood pressure 120 mm[Hg] Michelle Dillard TUBE AND ROD STRAIGHTENER Work Phone: [facility] [employer] 09-18-2022 09:00-0400 Body height 162.56 cm Janna Blankenship Other [facility] Other 09-18-2022 09:00-0400 Body mass index (BMI) [Ratio] 37.07 kg/m2 Janna Blankenship Other [facility] Other 09-18-2022 09:00-0400 Body temperature 98.4 [degF] Janna Blankenship Other [facility] Other 09-18-2022 09:00-0400 Body weight 97.98 kg Janna Blankenship Other [facility] Other 09-18-2022 09:00-0400 Diastolic blood pressure 70 mm[Hg] Janna Blankenship Other [facility] Other 09-18-2022 09:00-0400 Respiratory rate 18 /min Janna Blankenship Other [facility] Other 09-18-2022 09:00-0400 SaO2% (BldA) [Mass fraction] 97 % Janna Blankenship Other [facility] Other 09-18-2022 09:00-0400 Systolic blood pressure 118 mm[Hg] Janna Blankenship Other [facility] Other 06-20-2022 10:10-0400 Body height 162.56 cm Malia Hensonmond Other [facility] Other 06-20-2022 10:10-0400 Body temperature 97.3 [degF] Malia Kayley Other [facility] Other 06-20-2022 10:10-0400 Respiratory rate 18 /min Malia Kayley Other [facility] Other 06-20-2022 10:10-0400 SaO2% (BldA) [Mass fraction] 97 % Malia Kayley Other [facility] Other 06-07-2022 09:00-0500 Body height 162.56 cm Malia Kayley Other [facility] Other 06-07-2022 09:00-0500 Body mass index (BMI) [Ratio] 38.45 kg/m2 Malia Kayley Other [facility] Other 06-07-2022 09:00-0500 Body temperature 102 [degF] Malia Kayley Other [facility] Other 06-07-2022 09:00-0500 Body weight 101.61 kg Malia Kayley Other [facility] Other 06-07-2022 09:00-0500 SaO2% (BldA) [Mass fraction] 96 % Malia Zaldivar Other [facility] Other Encounters Encounter Date Encounter Type Care Provider Facility Start: 06-23-2025 ambulatory Raul REHMAN Facili ty:[facility] Start: 06-16-2025 ambulatory Raul REHMAN Facili ty:[facility] Start: 11-25-2024 End: 11-25-2024 ambulatory Raulabundio REHMAN Facility: [place] Start: 11-25-2024 End: 11-25-2024 Patient encounter procedure Raul REHMAN [facility] Start: 11-20-2024 End: 11-20-2024 Office outpatient new 30 minutes Jaqueline Thacker MD Work Phone: [facility] Comment on above: Sensorineural hearin g [...] Bamboo flowsheet Olena Dobson CCC-A Work Phone: [facility] Start: 11-12-2024 End: 11-12-2024 ambulatory Faisal Beach TUBE AND ROD STRAIGHTENER-C Work Phone: [facility] Work Phone: Start: 11-12-2024 End: 11-12-2024 Patient encounter procedure Michelle Zambrano Nishant AVIATION CONSULTANT-SECURITY DELIVERY SPECIALIST-C -[facility] Work Phone: Start: 11-11-2024 ambulatory [facility] Facility : [place] Start: 10-10-2024 End: 10-10-[address] [facility] Start: 05-02-2024 End: 05-02-2024 Office outpatient visit 15 minutes Michelle Nishant TUBE AND ROD STRAIGHTENER Work Phone: [facility] Comment on above: Mild cognitive impai rment (Primary Dx); ALEXYS on CPAP; Type 2 diabetes mellitus with hyperglycemia, without long-term current use of insulin ([facility]) Start: 05-02-2024 End: 05-02-2024 ambulatory MICHELLE NISHANT Not Available Start: 05-02-2024 End: 05-02-2024 Bamboo flowsheet Michelle Nishant TUBE AND ROD STRAIGHTENER Work Phone: [facility] Start: 05-02-2024 End: 05-02-2024 Bamboo flowsheet Michelle Nishant TUBE AND ROD STRAIGHTENER Work Phone: [facility] Start: 04-26-2024 End: 04-26-2024 ambulatory [facility] Start: 09-18-2022 End: 09-18-2022 ambulatory Janna Blankenship Other [facility] Other Start: 09-18-2022 Office outpatient vi sit 15 minutes Janna Blankenship [facility] Start: 06-20-2022 End: 06-20-2022 ambulatory Malia Zaldivar Other [facility] Other Start: 06-20-2022 Office outpatient vi sit 15 minutes Malia Kayley [facility] Start: 06-07-2022 End: 06-07-2022 ambulatory Malia Kayley Other [facility] [employer] Other Start: 06-07-2022 Office outpatient ne w 20 minutes Malia Zaldivar [facility] Procedures Date Procedure Procedure Detail Performing Clinician Start: 11-19-2024 AUDITORY FUNCTION TESTS Olena Dobson CCC-A Work Phone: History of arthropla sty of left knee Raul REHMAN History of right tot al knee replacement Raul REHMAN Plan of Treatment Date Care Activity Detail Author Start: 12-02-2024 Influenza vaccination Influenza Vacc ine (#[facility] Start: 11-20-2024 End: 11-20-2024 Patient encounter procedure 11/20/2024 10:00 AM EDT Office Visit [facility] [address] [facility] [address] [place] [address] Jaqueline Thacker MD [address] [facility] [address] [place] [address] [facility] Start: 11-19-2024 End: 11-19-2024 Clinical Support 11/19/2024 3:00 PM EDT Clinical Support [facility] [address] [facility] [place] [id number] Olena Dobson, CCC-A [address] [facility] [place] [address] Arrived [facility] Comment on above: Arrived Start: 11-12-2024 End: 11-12-2024 Patient encounter procedure 11/12/2024 1:00 PM EDT Office Visit [facility] [address] [place] [address] Michelle Dillard NP [address] [place] [address] [facility] Start: 05-02-2024 End: 05-02-2024 Patient encounter procedure 05/02/2024 4:00 PM EST Office Visit [facility] ESCALANTE [address] [place] [address] Michelle DillardCLAUDINE [address] [place] [address] Arrived [facility] ESCALANTE Comment on above: Arrived Start: 2013 Pneumococcal Vaccine : 65+ Years (1 of 1 - PCV) Pneumococcal Vaccine: 65+ Years (1 of 1 - PCV) [facility] Start: 1998 Pneumococcal Vaccine : 65+ Years (1 of 1 - PCV) Pneumococcal Vaccine: 65+ Years (1 of 1 - PCV) [facility] Start: 1950 Screening for malignant neoplasm of colon [facility] Immunizations Immunization Date Immunization Notes Care Provider Fa [facility] 02-23-2024 influenza virus vaccine, unspecified formulation Olena Dobson [facility] Work Phone: [facility] Payers Date Payer Category Payer Medicare [id number] 2022 Medicare (Managed Care) [employer] M EDICARE ADVANTAGE [id number] 2022 Medicare [id number] 1950 Unknown [id number] 1950 Unknown [id number] 1950 Unknown [id number] 1950 Unknown [id number] 1950 Unknown [id number] 1950 Unknown [id number] Social History Date Type Detail Facility Start: 10-23-2023 End: 11-20-2024 Sex Assigned At [facility] Start: 10-18-2023 End: 11-25-2024 Tobacco smoking status NHIS Never smoked tobacco [facility] Start: 10-18-2023 Tobacco use and exposure Smoke less tobacco non-user [facility] Start: 10-23-2023 End: 11-20-2024 Alcoholic beverage intake Lifetime non-drinker (finding) [facility] Start: 10-23-2023 End: 11-20-2024 History of Social function [facility] Start: 1950 Sex assigned at Not on file [facility] Tobacco smoking stat us NHIS Unknown if ever smoked [facility] Work Phone: Sex Male (finding) [facility] Start: 1950 Sex Assigned At Male F [facility] Tobacco smoking status Never [facility] Sexual Orientation [facility] Clinical Notes 06-01-2022 to 11-29-2024 Jaqueline Thacker MD - 11/20/2024 10:00 AM Juan Diego Dobson CCC-Luz - 11/19/2024 3:00 PM Eusebio Dillard NP - 05/02/2024 4:00 PM EST Note Date & Type Note Facility 11-29-2024 Note Spoke to patient, Ad vised patient of Dr. Batista recommendations. Patient verbalized understanding and agreed with plan of care [facility] 11-25-2024 Hospital Discharge instructions Patient Education 11/25/2024 [...] Follow these instructions at home: Medicines Take tnpe-ego-colsjcr and prescription medicines only as told by [...] important. Where to find more information National [employer] of Diabetes and Digestive and Kidney Diseases: [...] depends on the type of prostatitis. Take apbx-wqy-vrysnrl and prescription medicines only as told by [...] provider. Document Revised: 02/02/2023 Document Reviewed: 02/02/2023 [employer] Patient Education 2023 [employer]. Follow Up Care 11/12/2024 09:10:12 With:PILAR VILLEGAS, Raul Francis, URL Address: [address] [place] [address] When: Unknown Comments:4 mos w/ PSA [facility] 11-25-2024 Note Patient Education Infectious Disease Prostatitis [...] these instructions at home: Medicines ??? Take poad-lxb-hnneltr and prescription medicines only as told by [...] This is important. (more content not included)... [facility] 11-20-2024 History of Present illness Narrative [...] impairment 10/18/2023 Chronic kidney disease, stage 3a (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) 11/19/2024 Atherosclerosis of coronary artery without angina [...] DM type 2 (diabetes mellitus, type 2) ([facility]) Hypertension ALEXYS (obstructive sleep apnea) Past Surgical [...] not need [place]. 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 This was abnormal. This led [...] problems arise Berny Larson MD, MPH, FACC, [facility] Interventional Cardiology Pager Email: [email or web address] Berny Larson MD, MPH, FACC, [facility] Interventional Cardiology Pager Email: [email or web address] [[email or web address]] Family History Problem Relation [...] morning and at bedtime., Disp: , Rfl: [facility] 05-02-2024 History of Present illness Narrative Images [...] now resolved. He is working with his high school teacher to possibly obtain a new CPAP [...] wrist extensors , wrist flexor , and batch and furnace manager strength 5/5. LUE strength deltoid , biceps , triceps , wrist extensors , wrist flexor , and batch and furnace manager strength 5/5. RLE strength iliopsoas, quadriceps, tibialis [...] reflex 0. LLE knee reflex 0. Coordination: Cizofl-kf-vicz testing normal. Rapid alternating movements are normal. Gait: Normal. Review and summary of old records: MOCA score at [facility] on 05/02/24: with 4/5 recall. Vitamin B12 level on 04/14/23: 297. Labs on 03/11/23: GFR 54 (low). TSH on 09/20/22: 2.08. MRI of the brain w and w/o contrast at [facility] on 03/31/23: No acute intracranial process. Mild diffuse parenchymal volume loss. Independence cognitive assessment (MOCA) score at [facility] 03/08/23: . Assessment/Plan Diagnoses and [...] hyperglycemia, without long-term current use of insulin ([facility]) PLAN: - Follow up closely with primary care provider for adequate blood glucose management Diagnosis and treatment options discussed in detail. All questions answered. The patient verbalizes understanding and is agreeable to the plan. Discussion in layman's terms. Follow up in the office within 6 months; sooner if needed for new or worsening symptoms. Michelle Dillard NP [facility] documented in this encounter [facility] 04-26-2024 Note Cardiology Clinic No te [...] at this time. He states that his high school teacher told him he should be on [...] as needed Fahad Chin MD Interventional Cardiology [facility] 09-18-2022 Evaluation note Encounter Date Diagnosis [...] 7 days, sooner if significantly worsening symptoms. [facility] Other 03-20-2023 Evaluation note* Encounter Date Diagnosis [...] the ER for worsening symptoms or concerns [facility] Other 03-07-2023 Evaluation note* Encounter Date Diagnosis [...] J40) Jun, Acute cough (ICD-10 - R05.1) [facility] Other 03-01-2023 History general Narrative - Reported* Type Description Date Medical History hypertension Medical History high cholesterol Medical History COVID 06/2022 Surgical History right and left knee replacement Surgical History 2 stents Hospitalization History see surgical hx [facility] Other Evaluation + Plan note Future Appointments Appointment Date:03/17/2025 08:45:00 AM Scheduled Provider: Location:[facility] Appointment Type:URO Nurse Visit Appointment Date:03/24/2025 09:15:00 AM Scheduled Provider:Raul REHMAN MD Location:[facility] Appointment Type:URO Office Visit Diagnostic Tests Pending * Creatinine 11/25/24 Future Scheduled Tests Laboratory* PSA Free & Total 03/27/25 [facility] [place] evaluation note* Diagnosis Mild cognitive impairment- Primary Mild cognitive impairment, so stated ALEXYS on CPAP Type 2 diabetes mellitus with hyperglycemia, without long-term current use of insulin ([facility]) documented in this encounter [facility] HealthcareEvaluation note* Diagnosis Onset Date Resolution Status Admit Date MCI (mild cognitive impairment) chronic November 12 12:51pm Obstructive sleep apnea chronic A ugust 2024 12:51pm [facility] Work Phone: Evaluation note* Diagnosis Sudden hearing loss of both ears- Primary [facility] encounter [facility]* Diagnosis Sensorineural hearing loss (SNHL), bilateral- Primary documented in this encounter [facility] general Narrative - Reported* Type Description Date Medical History hypertension Medical History high cholesterol Surgical History right and left knee replacement Surgical History 2 stents Hospitalization History see surgical hx iTiffin Other Hospital course Narrative No data available for this section [facility] [employer] progress note No data available for this section [facility] reason for referral (narrative)No reason for referral information [facility] Work Phone: Chief Complaint and Reason [...] Care Teams (unrecognized sec tion and content) Technology Consultant Relationship Specialty Start Date End Date Muriel Beach MD [address] [place], [place] [id number] PCP - General Quilting Machine Operator 05/02/24 Cm Cho DO [address] [place] [id number] Referring Physician Neurology 05/02/24 Technology Consultant Relationship Specialty Start Date End Date Muriel Beach MD [address] [place] [address] PCP - General Quilting Machine Operator 05/02/24 Cm Cho DO [address] [id number] Referring Physician Neurology 05/02/24 Team Status: Active Member Role Status Dates MORGAN RodriguezC Primary Care Provider Active Team Status: Inactive Member Role Status Dates Michelle Dillard APRN-SECURITY DELIVERY SPECIALIST-C Attending Provider Active Start: November 12, 2024 End: November 12, 2024 FRAN Rodriguez Primary Care Provider Active Start: November 12, 2024 End: November 12, 2024 Technology Consultant Relationship Specialty Start Date End Date Muriel Beach MD [address] [place] [address] PCP - General Quilting Machine Operator 05/02/24 Cm Cho DO [address] [id number] Referring Physician Neurology 05/02/24 Technology Consultant Relationship Specialty Start Date End Date Muriel Beach MD [address] [place] [address] PCP - General Quilting Machine Operator 05/02/24 Cm Cho DO [address] [id number] Referring Physician Neurology 05/02/24 Technology Consultant Relationship Specialty Start Date End Date Muriel Beach MD [address] [place] [address] PCP - General Quilting Machine Operator 05/02/24 Cm Cho DO [address] [place] [id number] Referring Physician Neurology 05/02/24 Goals (unrecognized section and content) Goals may be documented in a n alternate section (unrecognized sect ion and content) No Status Records FoundNo Status Records FoundNo Status Records Found INFORMATION SOURCE (unrecogn ized section and content) DATE CREATED AUTHOR 11/21/2024 [facility] DATE CREATED AUTHOR AUTHOR'S ORGANIZ ATION 12/01/2024 [facility] DATE CREATED AUTHOR AUTHOR'S ORGANIZ ATION 12/15/2024 [facility] FOR RECORDS PERTAINING TO PATIENTS [...] BE BASED ON THE PRIMARY CLINICAL RECORDS. [employer] provides no warranty or guarantee of the accuracy or completeness of information in this document.
== END 2024-12-18 09:14 | disposition home or self-care (01) ==
LOC: CT 09:13
DX: R91.1 Solitary pulmonary nodule (principal)
CPT/HCPCS: 71250